=== PATIENT | female | born 1960 | race Two or more races ===

== ENCOUNTER 2023-12-03 13:13 | Observation (INO) | payer MEDICAID, SELFPAY ==
[2023-12-03] VITALS (46 sets, daily range): BP systolic 131–161; BP diastolic 68–97; PULSE 90–114; RESP 2–36; TEMP 36.8–37.8; O2SAT 88–99
--- NOTE | 2023-12-03 13:15 | DI.RAD_ITS ---
Exam(s) XR PORTABLE CHEST AP EXAM: XR PORTABLE CHEST AP CLINICAL HISTORY: SOB TECHNIQUE: 2D digital imaging was performed of the chest. One image was obtained. An AP view was ob tained. COMPARISON: No exams were available for comparison FINDINGS: MEDIASTINUM: Normal. HEART: Normal. PULMONARY VASCULATURE: Normal. LUNGS: No focal consolidating infiltrates are seen. PLEURAL SPACE: No pleural effusion or pneumothorax. BONE:Within normal limits for the patient's age. OTHER FINDINGS:There is elevation of the left hemidiaphragm. IMPRESSION: No acute pulmonary findings. DATA REPOSITORY: RADIATION DOSE DELIVERED:
--- NOTE | 2023-12-03 13:15 | RT.EKG_ITS ---
APPROVED REPORT Exam: Resting ECG Reason for Exam: sob Patient Location: E HR:98 bpm ECG Measurements Heart Rate 98 AXIS ME 188 P 50 QRSd 90 QRS 32 QT 354 T 53 QTc 451 Conclusion Sinus rhythm. normal axis
[2023-12-03] MEDS: methylPREDNISolone SUCC 125 MG VIAL IVP (13:34)
[2023-12-03 13:38] LABS: BE (Venous) 7 mmol/L (-2-3); HCO3 (Venous) 32 mmol/L (23-28); O2 Sat (Venous) 77 %; TCO2 (Venous) 30 mmol/L (24-29); pCO2 (Venous) 55 mmHg (41-51); pH (Venous) 7.38 (7.31-7.41); pO2 (Venous) 42 mmHg
[2023-12-03 13:53] LABS: PTT Activated 25.6 sec (23.6-32.8); Prothrombin Time 10.3 sec (9.1-11.1)
[2023-12-03 13:59] LABS: ALT 23 U/L (14-59); AST 11 U/L (15-37); Albumin 3.4 g/dL (3.4-5.0); Alkaline Phosphatase 96 U/L (46-116); Anion Gap 6.2 mmol/L (3-11); BUN 15 mg/dL (7-18); Bilirubin, Total 0.3 mg/dL (0.2-1.0); CO2 31.8 mmol/L (21.0-32.0); Calcium 9.7 mg/dL (8.5-10.1); Chloride 103 mmol/L (98-107); Glucose 116 mg/dL (74-106); Potassium 3.9 mmol/L (3.5-5.1); Sodium 141 mmol/L (136-145); Total Protein 7.6 g/dL (6.4-8.2)
[2023-12-03 14:05] LABS: Abs Immature Grans 0.09 10^3/uL (0.0-0.06); Absolute Basophil Count 0.07 10^3/uL (0.0-0.2); Absolute Lymphocyte Count 1.81 10^3/uL (1.2-3.4); Absolute Monocyte Count 0.98 10^3/uL (0.1-0.8); Basophils % 0.6; Eosinophils % 4.2; HCT 44.3 % (36.0-46.0); Immature Grans % 0.8; Lymphocytes % 15.2; MCH 24.1 pg (27.0-33.0); MCHC 29.3 % (32.0-36.0); MCV 82 fL (80-95); MPV 8.9 fL (8.0-11.0); Monocytes % 8.2; Platelet Count 326 10^3/uL (130-400); RDW 18.4 % (11.7-14.6); RDW-SD 54.1 fL; WBC 11.94 10^3/uL (4.4-10.8)
[2023-12-03 14:08] LABS: NT-proBNP 57 pg/mL (<300); Troponin I < 50 ng/L (< or =60)
[2023-12-03 14:10] LABS: Absolute Neutrophil Count 8.48 10^3/uL (1.2-6.7)
[2023-12-03] MEDS: Omnipaque 350 MG/ML 100 ML BTL IJ (14:44)
[2023-12-03] MEDS: Normal Saline - Diluent 50 ML VIAL IJ (14:45)
--- NOTE | 2023-12-03 15:00 | DI.CT_ITS ---
Exam(s) CT CHEST PE CTA EXAM: CT CHEST PE CTA CLINICAL HISTORY: SOB. TECHNIQUE: Imaging Protocol: Axial CT angiography was performed with multi-slice acquisition and mu lti-planar and/or 3D reconstructions. CONTRAST MATERIAL: Intravenous: Omnipaque 350 contrast volume:100 mL COMPARISON: CR XR PORTABLE CHEST AP from 12/03/2023 FINDINGS: There is poor inspiration and patient motion artifact. Tracheobronchial tree: Patent where visualized. Pulmonary parenchyma: There is atelectasis seen in the lung bases. No focal consolidating infiltrate s are seen. There is atelectasis or scarring in the right upper lobe. There is a 6 mm nodule in the right middle lobe. No architectural distortion. Pulmonary Arteries: No evidence of filling defect to suggest pulmonary emboli. Mediastinum and [place]: No dominant adenopathy or fluid collection. The esophagus is unremarkable. Visualized thyroid gland: There is a 7 mm hypodense nodule in the right lobe of the thyroid gland. N o follow-up is recommended. Pleura: No effusion or pneumothorax. Heart: The heart is not dilated. Coronary artery calcification and/or stents are present. No pericar dial effusion. Aorta: Thoracic aorta non-dilated. No evidence of dissection. Atherosclerosis is present. Upper abdomen: Unremarkable. Soft tissues: Unremarkable. Bones: Within normal limits for the patient's age. IMPRESSION: 1. No evidence of pulmonary embolism, thoracic aortic dissection or aneurysm. 2. 6 mm nodule in the right middle lobe. Follow-up CT scan of the chest in 12 months is recommended for low risk patients. For high risk patients (history of smoking or other risk factors), follow-up examination in 6-12 months and again in 18-24 months is recommended. (Gallito et al, 2017). Unexpected findings RADIATION DOSE DELIVERED: 456.94mGy.cm Total DLP DATA REPOSITORY: All CT scans at this facility are submitted to the National Radiology Data Registry (NRDR) Dose Index Registry (DIR) with the [employer] (A[employer]). RADIATION OPTIMIZATION: All CT scans at this facility use at least one of these dose optimization te chniques: automated exposure control; mA and/or kV adjustment per patient size (includes targeted exa ms where dose is matched to clinical indication); or iterative reconstruction.
--- NOTE | 2023-12-03 15:24 | ED.GENADUL_ITS ---
HPI General Stated Complaint: SOB EMETERIO: 2 Date/Time Provider Initiated Documentation: 12/03/23 13:24. Limitations to Documentation: physical limitation. Information obtained by: patient. HPI Narrative: 63-year-old female past medical history of DVT, hypertension presents for evaluation cough and shortness of breath. Patient reports that she has been having worsening symptoms over the last 2 weeks. She does smoke daily as well as vapes. She was seen by the urgent care and referred to the emergency department for further evaluation due to hypoxia. Patient reports that she is on Xarelto for blood clot. She reports cough, progressively worsening shortness of breath. Cough is productive of mucus. No fever. Has used an albuterol inhaler in the past, but states that it just does not work for her Related Data Home Medications Medication Instructions Recorded Confirmed amlodipine 5 mg tablet 5 mg PO DAILY 12/03/23 12/03/23 atorvastatin 40 mg tablet 40 mg PO DAILY 12/03/23 12/03/23 bupropion HCl 100 mg tablet,12 hr 100 mg PO DAILY 12/03/23 12/03/23 sustained-release (Wellbutrin SR) cholecalciferol (vitamin D3) 125 5,000 unit PO DAILY 12/03/23 12/03/23 mcg (5,000 unit) tablet (Vitamin D3) ferrous sulfate 325 mg (65 mg 324 mg PO DAILY 12/03/23 12/03/23 iron) tablet (Feosol) hydroxyzine HCl 50 mg tablet 50 mg PO BID 12/03/23 12/03/23 multivitamin (Daily Multi-Vitamin 1 tab PO DAILY 12/03/23 12/03/23 tablet) omeprazole 40 mg capsule,delayed 40 mg PO DAILY 12/03/23 12/03/23 release rivaroxaban 20 mg tablet (Xarelto) 20 mg PO DAILY 12/03/23 12/03/23 sertraline 50 mg tablet 50 mg PO DAILY 12/03/23 12/03/23 Allergies Allergy/AdvReac Type Severity Reaction Status Date / Time diclofenac [From Voltaren] Allergy Mild Skin Rash Verified 12/03/23 13:46 PFS All Active Problems (Updated 12/03/23 @ 16:10 by Jass Gibbs MD) COPD exacerbation (Acute) Continuous tobacco abuse (Acute) Shortness of breath (Acute) Hypoxia (Acute) Social History Smoking/Tobacco Use Status: Current every day Tobacco Type: cigarettes and e- cigarettes Smoking risk assessment performed?: Yes Alcohol Intake: former Drug use: Rarely Substance use type: marijuana Housing: apartment Do you feel safe at home: Yes Do you feel safe in your relationship?: Yes Exam Narrative Exam Narrative: Review of Systems: All systems reviewed & are unremarkable except as noted in HPI and below Well-developed, acute distress NACT PERRL, normal conjunctiva Tachycardic Diminished breath sounds bilaterally, hypoxia at 88% Nondistended abdomen Extremities w/o deformity, no cyanosis, no edema No lower extremity swelling or tenderness No rashes or lesions. no focal neurologic deficits Appropriate mood and affect Course Vital Signs Vital signs: Vital Signs Temperature 36.8 C 12/03/23 13:16 Pulse 101 H 12/03/23 13:16 Respiratory Rate 20 12/03/23 13:16 Blood Pressure 160/82 H 12/03/23 13:16 Pulse Oximetry 93 12/03/23 13:16 Temperature 36.8 C 12/03/23 13:39 Temperature Source Oral 12/03/23 13:39 Pulse 94 H 12/03/23 14:30 Pulse 93 H 12/03/23 14:31 Respiratory Rate 18 12/03/23 14:31 Respiratory Effort Short of Breath 12/03/23 13:39 Respiratory Depth Normal 12/03/23 13:39 Respiratory Pattern Normal 12/03/23 13:39 Blood Pressure 161/95 H 12/03/23 14:30 Blood Pressure Mean 117 12/03/23 14:30 Blood Pressure Position Sitting 12/03/23 13:39 Pulse Oximetry 94 12/03/23 14:31 Oxygen Delivery Method Nasal Cannula 12/03/23 13:39 Oxygen Flow Rate 2 12/03/23 13:39 Pain Level 2 12/03/23 13:39 Lab/Test Results Lab/Test Results: Laboratory Tests Range/Units 12/03/23 13:27 WBC (4.4-10.8) 10^3/uL 11.94 H RBC (3.93-5.22) 10^6/uL 5.40 H Hgb (11.2-15.7) g/dL 13.0 Hct (36.0-46.0) % 44.3 MCV (80-95) fL 82 MCH (27.0-33.0) pg 24.1 L MCHC (32.0-36.0) % 29.3 L RDW (11.7-14.6) % 18.4 H Plt Count (130-400) 10^3/uL 326 MPV (8.0-11.0) fL 8.9 Immature Gran % 0.8 Neutrophils % 71.0 Lymphocytes % 15.2 Monocytes % 8.2 Eosinophils % 4.2 Basophils % 0.6 Nucleated RBC % (0.0-0.3) % 0.0 Absolute Neutrophils (1.2-6.7) 10^3/uL 8.48 H Absolute Lymphocytes (1.2-3.4) 10^3/uL 1.81 Absolute Monocytes (0.1-0.8) 10^3/uL 0.98 H Absolute Eosinophils (0.0-0.7) 10^3/uL 0.50 Absolute Basophils (0.0-0.2) 10^3/uL 0.07 PT (9.1-11.1) sec 10.3 INR (0.9-1.1) 1.0 APTT (23.6-32.8) sec 25.6 VBG pH (7.31-7.41) 7.38 VBG pCO2 (41-51) mmHg 55 H VBG pO2 mmHg 42 VBG HCO3 (23-28) mmol/L 32 H VBG Total CO2 (24-29) mmol/L 30 H VBG O2 Saturation % 77 VBG Base Excess (-2-3) mmol/L 7 H Sodium (136-145) mmol/L 141 Potassium (3.5-5.1) mmol/L 3.9 Chloride (98-107) mmol/L 103 Carbon Dioxide (21.0-32.0) mmol/L 31.8 Anion Gap (3-11) mmol/L 6.2 BUN (7-18) mg/dL 15 Creatinine (0.55-1.02) mg/dL 1.0 Est GFR (CKD-EPI 2020) (mL/min/1.73m2) 63.70 Glucose (74-106) mg/dL 116 H Calcium (8.5-10.1) mg/dL 9.7 Magnesium (1.8-2.4) mg/dL 2.0 Total Bilirubin (0.2-1.0) mg/dL 0.3 AST (15-37) U/L 11 L ALT (14-59) U/L 23 Alkaline Phosphatase (46-116) U/L 96 Troponin I (< or =60) ng/L < 50 NT-Pro-B Natriuret Pep (<300) pg/mL 57 Total Protein (6.4-8.2) g/dL 7.6 Albumin (3.4-5.0) g/dL 3.4 Medical Decision Making Emergent evaluation of shortness of breath and hypoxia. Initial differential includes COPD exacerbation, pneumonia, vaping associated lung injury, viral illness. Patient is noted to be tachycardic and hypoxic. She is requiring supplemental oxygen to maintain her sats. She states that she is not completely compliant with her Xarelto. She cannot give additional details regarding her DVT, will evaluate her for a PE as well. Will give steroids and additional bronchodilators. 1525: removed nasal canula, sats around 88%. will give another neb. CTA pending. 1610: CTA does not demonstrate a pulmonary embolism. There is a pulmonary nodu le that will require follow-up. Given the fact that she is oxygen dependent at this time, patient will require hospitalization. Medical Records Medical records reviewed: Yes I reviewed the patient's medical records. Lab Data Lab results reviewed: Yes I reviewed the patient's lab results. Quality:[facility] Health Related Social Needs: No Data to Display Discharge Plan Disposition Patient Disposition: Admit to [facility] Discharge Details Clinical Impression: Hypoxia, Shortness of breath, Continuous tobacco abuse, COPD exacerbation Primary Care Provider: Unknown,Unknown ED Provider: Jass Gibbs Home Meds and New Rx's Prescriptions: No Action Xarelto 20 mg tablet 20 mg PO DAILY Rx Instructions: must administer with evening meal amlodipine 5 mg tablet 5 mg PO DAILY sertraline 50 mg tablet 50 mg PO DAILY atorvastatin 40 mg tablet 40 mg PO DAILY hydroxyzine HCl 50 mg tablet 50 mg PO BID omeprazole 40 mg capsule,delayed release(DR/EC) 40 mg PO DAILY ferrous sulfate [Feosol] 325 mg (65 mg iron) tablet 324 mg PO DAILY bupropion HCl [Wellbutrin SR] 100 mg tablet sustained-release 12 hr 100 mg PO DAILY cholecalciferol (vitamin D3) [Vitamin D3] 125 mcg (5,000 unit) tablet 5,000 unit PO DAILY multivitamin [Daily Multi-Vitamin] Tablet 1 tab PO DAILY
[2023-12-03] MEDS: Albuterol/Ipratropium 3 ML UPD VIAL UPD ×2 (15:30→19:59)
--- NOTE | 2023-12-03 16:29 | HPE_ITS ---
Date of service: 12/03/23 Time of Service: 16:30 Assessment and Plan Assessment and plan (1) Acute hypoxic respiratory failure: Status: Acute Assessment and plan: Will refer to observation on the medical surgical unit suspected COPD exacerbation (no formal diagnosis). Wean oxygen as able Daily prednisone burst Scheduled updrafts with albuterol as needed Smoking cessation discussed with nicotine replacement while hospitalized Pulmonary toileting with incentive spirometer and Acapella Outpatient pulmonary function testing/pulmonary consult Chest CT with no findings of pulmonary embolism infiltrate or other etiology for her acute hypoxia. Will add procalcitonin and if elevated consider adding antibiotic (2) COPD exacerbation: Status: Suspected Assessment and plan: See above (3) LISA (obstructive sleep apnea): Status: Chronic Assessment and plan: has not tolerated her cpap previously so does not use. (4) Continuous tobacco abuse: Status: Acute Assessment and plan: Smoking cessation discussed Nicotine replacement while hospitalized (5) History of DVT (deep vein thrombosis): Status: Acute Assessment and plan: Fully anticoagulated on Xarelto, will continue (6) Hypertension: Status: Chronic Assessment and plan: Blood pressure is controlled continue amlodipine (7) Dyslipidemia: Status: Acute Assessment and plan: Continue atorvastatin (8) Discharge planning issues: Status: Acute Assessment and plan: Anticipated discharge to home with no services once medically stable and weaned off oxygen discussed with DR Robles History of Present Illness History of Present Illness Chief Complaint: shortness of breath Narrative: This is a 63-year-old female past medical history of DVT, hypertension presents for evaluation cough and shortness of breath. Patient reports that she has been having worsening symptoms over the last 2 weeks. She does smoke daily as well as vapes. She was seen by the urgent care and referred to the emergency department for further evaluation due to hypoxia. Patient reports that she is on Xarelto for blood clot. She reports cough, progressively worsening shortness of breath. Cough is productive of mucus. No fever. Has used an albuterol inhaler in the past, but states that it just does not work for her. Review of Systems All systems reviewed & are unremarkable except as noted in HPI and below PFSH All Active Problems (Updated 12/03/23 @ 17:56 by Dinorah Tan NP) LISA (obstructive sleep apnea) (Chronic) Discharge planning issues (Acute) Dyslipidemia (Acute) Hypertension (Chronic) History of DVT (deep vein thrombosis) (Acute) Acute hypoxic respiratory failure (Acute) Continuous tobacco abuse (Acute) Shortness of breath (Acute) Hypoxia (Acute) Social History Smoking/Tobacco Use Status: Current every day Tobacco Type: cigarettes and e- cigarettes Smoking risk assessment performed?: Yes Alcohol Intake: former Drug use: Rarely Substance use type: marijuana Housing: apartment Do you feel safe at home: Yes Do you feel safe in your relationship?: Yes Meds Allergies and Home Medications Allergies Allergy/AdvReac Type Severity Reaction Status Date / Time diclofenac [From Voltaren] Allergy Mild Skin Rash Verified 12/03/23 13:46 Home Medications Medication Instructions Recorded Confirmed Type amlodipine 5 mg tablet 5 mg PO DAILY 12/03/23 12/03/23 History atorvastatin 40 mg tablet 40 mg PO DAILY 12/03/23 12/03/23 History bupropion HCl 100 mg tablet,12 hr 100 mg PO DAILY 12/03/23 12/03/23 History sustained-release (Wellbutrin SR) cholecalciferol (vitamin D3) 125 5,000 unit PO DAILY 12/03/23 12/03/23 History mcg (5,000 unit) tablet (Vitamin D3) ferrous sulfate 325 mg (65 mg 324 mg PO DAILY 12/03/23 12/03/23 History iron) tablet (Feosol) hydroxyzine HCl 50 mg tablet 50 mg PO BID 12/03/23 12/03/23 History multivitamin (Daily Multi-Vitamin 1 tab PO DAILY 12/03/23 12/03/23 History tablet) omeprazole 40 mg capsule,delayed 40 mg PO DAILY 12/03/23 12/03/23 History release rivaroxaban 20 mg tablet (Xarelto) 20 mg PO DAILY 12/03/23 12/03/23 History sertraline 50 mg tablet 50 mg PO DAILY 12/03/23 12/03/23 History Exam Const General: no acute distress and ill appearing Nutritional Appearance: overweight Orientation: alert, awake and oriented x3 HENMT Head: normal to inspection, normocephalic and atraumatic Face and sinus: normal facial exam Mouth: oral mucosae normal Resp Effort & Inspection: able to speak in complete sentences, no audible wheezes, cough and no respiratory distress Auscultation: diminished lung sounds, no rales, no rhonchi and wheezes expiratory wheezes Cardio Rate: tachycardic GI Inspection: normal to inspection Skin General skin exam: no rashes or lesions noted Extrem General: normal to inspection and full ROM Results Labs 12/03/23 13:27 12/03/23 13:27 Labs: Laboratory Results - last 24 hr 12/03/23 13:27 WBC 11.94 H RBC 5.40 H Hgb 13.0 Hct 44.3 MCV 82 MCH 24.1 L MCHC 29.3 L RDW 18.4 H Plt Count 326 MPV 8.9 Immature Gran % 0.8 Neutrophils % 71.0 Lymphocytes % 15.2 Monocytes % 8.2 Eosinophils % 4.2 Basophils % 0.6 Nucleated RBC % 0.0 Absolute Neutrophils 8.48 H Absolute Lymphocytes 1.81 Absolute Monocytes 0.98 H Absolute Eosinophils 0.50 Absolute Basophils 0.07 PT 10.3 INR 1.0 APTT 25.6 VBG pH 7.38 VBG pCO2 55 H VBG pO2 42 VBG HCO3 32 H VBG Total CO2 30 H VBG O2 Saturation 77 VBG Base Excess 7 H Sodium 141 Potassium 3.9 Chloride 103 Carbon Dioxide 31.8 Anion Gap 6.2 BUN 15 Creatinine 1.0 Est GFR (CKD-EPI 2020) 63.70 Glucose 116 H Calcium 9.7 Magnesium 2.0 Total Bilirubin 0.3 AST 11 L ALT 23 Alkaline Phosphatase 96 Troponin I < 50 NT-Pro-B Natriuret Pep 57 Total Protein 7.6 Albumin 3.4 Last Vital Signs Temp 36.8 C 12/03/23 13:39 Pulse 96 H 12/03/23 16:01 Resp 21 12/03/23 16:10 BP 161/84 H 12/03/23 16:01 Pulse Ox 92 12/03/23 16:10 Time Spent Time spent with Patient: 55-74 minutes Time was spent: preparing to see the patient(eg.review tests), obtaining and/or reviewing separately otained hiistory, ordering medications,tests, procedures, indepentently interpreting results and counseling the patient
[2023-12-03] MEDS: Nicotine 4 MG GUM CH (17:26)
[2023-12-03 17:36] LABS: Lab Add On Test DONE
[2023-12-03 18:12] LABS: Procalcitonin < 0.1 ng/mL
[2023-12-03] MEDS: Nicotine 21 MG/24 HR PATCH TD (19:52)
[2023-12-03] MEDS: Normal Saline 1,000 ML 1000 ML IV (19:53)
[2023-12-03] MEDS: hydrOXYzine HCL 50 MG TAB PO (20:14)
--- NOTE | 2023-12-03 20:22 | RESPIRATORY ---
RT seen pt. for LISA diagnosis. Pt. advised RT that she does not use any HU CPAP for her LISA. Also, states had one and stopped using it 3 years ago due to discomfort.
[2023-12-03] MEDS: Melatonin 3 MG TAB PO (21:32)
[2023-12-03] MEDS: Acetaminophen 325 MG TAB 650 MG PO (21:32)
[2023-12-04] VITALS (10 sets, daily range): BP systolic 135–150; BP diastolic 79–87; PULSE 78–104; RESP 3–20; TEMP 36.7–37.4; O2SAT 91–97
[2023-12-04] MEDS: Albuterol/Ipratropium 3 ML UPD VIAL UPD ×4 (08:35→19:53)
[2023-12-04] MEDS: Rivaroxaban 10 MG TABLET 20 MG PO (08:50)
[2023-12-04] MEDS: amLODIPine 5 MG TAB PO (08:50)
[2023-12-04] MEDS: predniSONE 20 MG TAB 40 MG PO (08:50)
[2023-12-04] MEDS: Omeprazole 20 MG CAPCR 40 MG PO (08:50)
[2023-12-04] MEDS: Ferrous Sulfate 325 MG TAB 324 MG PO (08:50)
[2023-12-04] MEDS: Sertraline 50 MG TAB PO (08:50)
[2023-12-04] MEDS: Atorvastatin 40 MG TAB PO (08:50)
[2023-12-04] MEDS: buPROPion-CR 100 MG TABCR PO (08:50)
[2023-12-04] MEDS: Multivitamin TAB 1 TAB PO (08:50)
[2023-12-04] MEDS: hydrOXYzine HCL 50 MG TAB PO ×2 (08:50→19:53)
[2023-12-04] MEDS: Cholecalciferol (Vitamin D3) 1,000 UNIT TAB 5000 UNITS PO (08:50)
[2023-12-04] MEDS: Nicotine 4 MG GUM CH ×2 (09:00→12:54)
--- NOTE | 2023-12-04 09:48 | PDOC.CMIN ---
Date of service: 12/04/23 Time of Service: 09:48 Care Management Initial Assmt Initial Assessment REASON FOR HOSPITALIZATION:: Acute respiratory failure, COPD exacerbation PREVIOUS FUNCTIONAL STATUS/SOCIAL/FAMILY SUPPORTS:: Resides in [facility], . Sister Almita listed as primary support. CURRENT FUNCTIONAL STATUS:: Sera remains on M/S in observation status, anticipate no new services upon discharge at this time, continuing to follow. ADVANCE DIRECTIVES:: None on file. Has patient been provided with info about the portal/API?: Yes Did the patient sign up for the portal?: No CODE STATUS:: Full Code INSURANCE COVERAGE / FINANCIAL ISSUES:: Medicaid PRIMARY CARE PHYSICIAN:: Unknown; tele doc (Ann) follow up to be offered. POTENTIAL DISCHARGE NEEDS:: Smoking cessation referral offered. PATIENT/FAMILY EDUCATION NEEDS:: Review discharge instructions, discuss Ask Me Three'> ANTICIPATED BARRIERS TO DISCHARGE:: None identified. TRANSPORTATION:: Via private vehicle with friend, or via RCT. PLAN:: Sera will return home when ready per MD, she will be offered resources for PCP (Ann) and smoking cessation. No additional services anticipated at this time. CM continues to follow. PFSH All Active Problems (Updated 12/04/23 @ 15:09 by Tabitha Thompson APRN) Creatinine elevation (Acute) LISA (obstructive sleep apnea) (Chronic) Discharge planning issues (Acute) Dyslipidemia (Acute) Hypertension (Chronic) History of DVT (deep vein thrombosis) (Acute) Acute hypoxic respiratory failure (Acute) Continuous tobacco abuse (Acute) Shortness of breath (Acute) Hypoxia (Acute) Social History Smoking/Tobacco Use Status: Current every day Tobacco Type: cigarettes and e-cigarettes Smoking risk assessment performed?: Yes Alcohol Intake: former Drug use: Rarely Substance use type: marijuana Housing: apartment Do you feel safe at home: Yes Do you feel safe in your relationship?: Yes SDOH(Care Management) Screening Will the Patient Participate in the Screening?: Yes Do you worry about having a steady place to live?: no In the past 12 months, have you had to go without electric, gas, oil or water in your home?: no Have you or anyone in your house had to go without enough food to eat?: no Has lack of transportation kept you from medical appointments or from doing things needed for daily living?: yes Has anyone in your support network made you feel unsafe for any reason?: no Social Determinants of Health Comments(SDOH Details): transportation for appointments Health Related Social Needs Health related social needs: transportation insecurity(Z59.82)
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
[2023-12-04 11:05] LABS: Abs Immature Grans 0.12 10^3/uL (0.0-0.06); Absolute Basophil Count 0.04 10^3/uL (0.0-0.2); Absolute Lymphocyte Count 0.94 10^3/uL (1.2-3.4); Basophils % 0.2; HCT 39.3 % (36.0-46.0); HGB 11.6 g/dL (11.2-15.7); Immature Grans % 0.6; Lymphocytes % 5.1; MCH 24.3 pg (27.0-33.0); MCHC 29.5 % (32.0-36.0); MCV 82 fL (80-95); Monocytes % 4.6; Neutrophils % 89.5; Platelet Count 312 10^3/uL (130-400); RBC 4.78 10^6/uL (3.93-5.22); RDW 18.4 % (11.7-14.6); RDW-SD 54.9 fL
[2023-12-04 11:06] LABS: Absolute Monocyte Count 0.85 10^3/uL (0.1-0.8); Absolute Neutrophil Count 16.56 10^3/uL (1.2-6.7)
[2023-12-04 11:21] LABS: Anion Gap 6.4 mmol/L (3-11); BUN 23 mg/dL (7-18); CO2 28.6 mmol/L (21.0-32.0); CREATININE 1.1 mg/dL (0.55-1.02); Calcium 9.4 mg/dL (8.5-10.1); Chloride 104 mmol/L (98-107); Estimated GFR 56.81 (mL/min/1.73m2); Glucose 234 mg/dL (74-106); Potassium 4.5 mmol/L (3.5-5.1); Sodium 139 mmol/L (136-145)
--- NOTE | 2023-12-04 14:51 | PHA.REVIEW2 ---
Pharmacy Admission Review Admission Clinical Review Admission Pharmacy Review: (Updated 12/03/23 @ 17:56 by Dinorah Tan NP) Discharge planning issues (Acute) Dyslipidemia (Acute) History of DVT (deep vein thrombosis) (Acute) Acute hypoxic respiratory failure (Acute) Continuous tobacco abuse (Acute) Shortness of breath (Acute) Hypoxia (Acute) diclofenac [From Voltaren] Allergy (Mild, Verified 12/03/23 13:46) Skin Rash Resuscitation Status Full Code Height 5 ft 4 in Weight 104.326 kg Pharmacy Admission Review Renal Dosing Renal Dosing: BUN 23 mg/dL (7-18) H 12/04/23 10:55 Creatinine 1.1 mg/dL (0.55-1.02) H 12/04/23 10:55 Medications needing adjustments: Reviewed (CrCl 62.41 mL/min) Anticoagulation Anticoagulation: Hgb 11.6 g/dL (11.2-15.7) 12/04/23 10:55 Hct 39.3 % (36.0-46.0) 12/04/23 10:55 Plt Count 312 10^3/uL (130-400) 12/04/23 10:55 INR 1.0 (0.9-1.1) 12/03/23 13:27 Creatinine 1.1 mg/dL (0.55-1.02) H 12/04/23 10:55 DVT Prophylaxis: Reviewed Medications: Rivaroxaban (20mg daily) Relevant Labs Relevant Labs: Sodium 139 mmol/L (136-145) 12/04/23 10:55 Potassium 4.5 mmol/L (3.5-5.1) 12/04/23 10:55 Chloride 104 mmol/L (98-107) 12/04/23 10:55 Magnesium 2.0 mg/dL (1.8-2.4) 12/03/23 13:27 Electrolytes, C-Reactive P, ESR: Reviewed Cardiac Review Cardiac Review: Troponin I < 50 ng/L (< or =60) 12/03/23 13:27 NT-Pro-B Natriuret Pep 57 pg/mL (<300) 12/03/23 13:27 BP, HR, EF%: Reviewed (BP WNL, HR 100, Nasal Cannula 2+) QTc Review QTc: Reviewed (451 12/03/23) IV to PO Switch IV Medications: Reviewed Home Meds Home Med List reviewed: Reviewed Current Meds Current Medication Order Review: Reviewed Pharmacy Antibiotic Review Relevant Labs: Relevant Labs 12/03/23 13:27 Procalcitonin < 0.1
[2023-12-04] MEDS: Nicotine 21 MG/24 HR PATCH TD (15:28)
[2023-12-04] MEDS: Acetaminophen 325 MG TAB 650 MG PO (15:33)
--- NOTE | 2023-12-04 15:47 | CHAPLAIN ---
Sera was sitting up in bed when I visited. Her sister Almita was with her and another person. Sera said she moved to [facility] from [place], [place], within the past year to live with her sister. She asked me to pray for her and also asked for chapstick and lotion which I got for her. I will continue to visit.
[2023-12-04] MEDS: Methocarbamol 750 MG TAB PO (19:52)
[2023-12-04] MEDS: Melatonin 3 MG TAB PO (21:39)
[2023-12-05 07:22] LABS: Abs Immature Grans 0.09 10^3/uL (0.0-0.06); Absolute Lymphocyte Count 2.62 10^3/uL (1.2-3.4); Absolute Monocyte Count 1.41 10^3/uL (0.1-0.8); Basophils % 0.4; Eosinophils % 0.6; HCT 40.1 % (36.0-46.0); HGB 12.1 g/dL (11.2-15.7); Immature Grans % 0.5; Lymphocytes % 13.9; MCH 24.9 pg (27.0-33.0); MCHC 30.2 % (32.0-36.0); MCV 83 fL (80-95); MPV 9.3 fL (8.0-11.0); Monocytes % 7.5; Neutrophils % 77.1; Platelet Count 335 10^3/uL (130-400); RBC 4.85 10^6/uL (3.93-5.22); RDW 18.4 % (11.7-14.6); RDW-SD 55.5 fL; WBC 18.85 10^3/uL (4.4-10.8)
[2023-12-05 07:24] LABS: Absolute Basophil Count 0.08 10^3/uL (0.0-0.2); Absolute Eosinophil Count 0.11 10^3/uL (0.0-0.7); Absolute Neutrophil Count 14.53 10^3/uL (1.2-6.7)
[2023-12-05 07:41] LABS: Anion Gap 6.8 mmol/L (3-11); BUN 27 mg/dL (7-18); CO2 32.2 mmol/L (21.0-32.0); CREATININE 1.1 mg/dL (0.55-1.02); Chloride 104 mmol/L (98-107); Estimated GFR 56.81 (mL/min/1.73m2); Glucose 130 mg/dL (74-106); Sodium 143 mmol/L (136-145)
[2023-12-05 08:39] VITALS: O2SAT 95
[2023-12-05 08:41] VITALS: PULSE 91; RESP 18; RESP 9; O2SAT 89
[2023-12-05] MEDS: Albuterol/Ipratropium 3 ML UPD VIAL UPD ×2 (08:41→12:15)
[2023-12-05 08:46] VITALS: PULSE 93
--- NOTE | 2023-12-05 09:27 | W.PM.DS.N ---
Date of service: 12/05/23 Time of Service: 09:27 DS: Diagnosis Discharge Diagnosis (1) Acute hypoxic respiratory failure: Status: Acute (2) COPD exacerbation: Status: Suspected (3) LISA (obstructive sleep apnea): Status: Chronic (4) Creatinine elevation: Status: Acute (5) Continuous tobacco abuse: Status: Acute (6) History of DVT (deep vein thrombosis): Status: Acute (7) Hypertension: Status: Chronic (8) Dyslipidemia: Status: Acute (9) Discharge planning issues: Status: Acute Discharge Plan Disposition Patient Disposition: Home Condition: Improving Discharge Details Reason For Visit: Acute respiratory failure, copd exacerbation Admit Date/Time: 12/03/23 16:24 Admit Provider: Aries Robles Attending Provider: Aries Robles Primary Care Provider: Unknown,Unknown Hospital Course Hospital Course: This 63-year-old female past medical history of over 50 pack year of daily tobacco abuse, vaping, deep vein thrombosis on xeralto, hypertension on amlodipine presented to the ED at [facility] on 12/03/23 for evaluation cough, shortness of breath and hypoxia after urgent care visit. Patient reports that she has been having worsening symptoms over the last 2 weeks. She reported cough, progressively worsening shortness of breath. Cough was productive of mucus without fever or chills at the time .The patient reported using an albuterol inhaler in the past, but stated that it just did not work for her. In the ED , the patient was hypoxic on arrival, required oxygen supplementation, had a nebulizer treatment with bronchodilators, remained hypoxic at 88% on RA at rest. The patient received steroids and additional bronchodilators via nebulizer.CTA was negative for PE, remarkable labs showed leukocytosis at 11.8, PCO2 on VBG was 55.The hospitalist admintted the patient on the medical surgical floor for evaluation and management of hypoxic respiratory failure with hypercapnia, and chronic obstructive pulmonary disease (COPD) exacerbation. During her stay, the patient continued to receive nebulizer treament, prednisone and was wean off oxygen. Pulmonary consult with recommendations obtained and f/u as an outpatient. to be arrange by pulmonary medicine. The recommendations issued by Dr. Marx upon discharge are for oral azthromycin 250mg for 5 day s, prednisone taper, Stiolto which was started here, and PRN albuterol. The patient will have as needed nebulizer of albuterol at home, and use the the portable albuterol inhaler if needed when outside of her home setting. The patient is discharged home today and has no additional oxygen requirement. The patient complained of ear pain due to her causing an abrasion with her nail, increased pain to palpation, no redness, drainage or swelling, but no observable lesion seen, a referral to Dr. Johns was completed. The patient will also need a follow up with her primary care provider. Discussed with Dr. Robles Home Meds and New Rx's Prescriptions: New albuterol sulfate 2.5 mg /3 mL (0.083 %) Solution For Nebulization 2.5 mg UPD Q4H PRN PRNQty: 75 0RF Stiolto Respimat 2.5-2.5 mcg/actuation Mist 2 puff inhalation DAILY Qty: 4 0RF azithromycin 250 mg Tablet 250 mg PO DAILY Qty: 5 0RF prednisone 20 mg Tablet See Taper PO DAILY Qty: 29 0RF Taper: Prednisone 20mg taper 40 mg Daily for 7 Days and 0 Hour 30 mg Daily for 3 Days and 0 Hour 20 mg Daily for 3 Days and 0 Hour 10 mg Daily for 3 Days and 0 Hour 5 mg Daily for 5 Days and 0 Hour Rx Instructions: prednisone 40mg daily for 7 days, 30mg for 3 days, 20mg for 3 days, 10mg for 3 days, 5mg for 3 days albuterol sulfate 90 mcg/actuation HFA aerosol inhaler 2 puff inhalation Q12H PRN PRNQty: 6.7 0RF Rx Instructions: While outside of home setting Continued Xarelto 20 mg tablet 20 mg PO DAILY Rx Instructions: must administer with evening meal amlodipine 5 mg tablet 5 mg PO DAILY sertraline 50 mg tablet 50 mg PO DAILY atorvastatin 40 mg tablet 40 mg PO DAILY hydroxyzine HCl 50 mg tablet 50 mg PO BID omeprazole 40 mg capsule,delayed release(DR/EC) 40 mg PO DAILY ferrous sulfate [Feosol] 325 mg (65 mg iron) tablet 324 mg PO DAILY bupropion HCl [Wellbutrin SR] 100 mg tablet sustained-release 12 hr 100 mg PO DAILY cholecalciferol (vitamin D3) [Vitamin D3] 125 mcg (5,000 unit) tablet 5,000 unit PO DAILY multivitamin [Daily Multi-Vitamin] Tablet 1 tab PO DAILY Discharge Instructions Stand Alone Forms: Nursing Discharge Form Referrals: [facility] [Provider Group] - 12/24/23 10:30 am (With Sherrell Grossman ) [facility] [Provider Group] - 12/11/23 8:00 am (For your ear pain ) Sally Marx MD [ [facility] STAFF PHYSICIAN] - 12/22/23 1:00 pm () Activity:: Activity as Tolerated Equipment/Supplies:: nebulizer Diet:: As Tolerated Discharge Orders Discharge Orders: Discharge Order (Routine); Ordered 12/05/23 Ordered By: Tabitha Thompson DS: Summary Time Spent with Patient providing and/or coordinating discharge services: Greater than 30 minutes Status at Discharge Functional status at discharge: independent ambulation Overall status at discharge: patient is progressing back to baseline Mental Status: mental status grossly normal Speech and Movement: speech and movement normal Mood: congruent mood Affect: normal affect Quality:SDOH Health Related Social Needs: Health related social needs transpo insecurity Exam Narrative Exam Narrative: Constitutional The patient is without acute distress HENMT: Head is atraumatic, normocephalic, facial structures and ears with normal appearance Neuro:alert and oriented to self, person, place, time and situation. No neurological focal deficit Chest:Chest is symmetrical and normal appearance Resp: Normal respiratory pattern, speaks in full sentences, unlabored breathing on RA, clear upper lungs bilaterally, diminished bases Cardio: regular rhythm, S1, S2, no murmur, capillary refill<3 sec., bilateral radial and dorsalis pedis pulses are positive GI: Abdomen is not distended, soft and non tender, bowel sounds are present Back/spine/Pelvis: No back tenderness, normal alignment Extremities: strength 5/5 to bilateral lower and upper extremities Psych: RASS 0, congruent mood and normal to anxious d/t discharge affect. Psych Mental Status: mental status grossly normal Speech and Movement: speech and movement normal Mood: congruent mood Affect: normal affect DS: Data Vitals/I&O Vitals and I&O: Vital Signs Temperature 37.2 C 12/04/23 23:28 Temperature Source Tympanic 12/04/23 23:28 Pulse 93 H 12/05/23 08:46 Pulse Rhythm Irregular 12/04/23 23:25 Pulse 108 H 12/03/23 17:40 Respiratory Rate 18 12/05/23 08:41 Respiratory Effort Normal, Non-Labored, Short of Breath 12/04/23 23:25 Respiratory Depth Shallow 12/04/23 23:25 Respiratory Pattern Irregular 12/04/23 23:25 Blood Pressure 141/79 H 12/04/23 23:28 Blood Pressure Mean 107 12/03/23 16:45 Blood Pressure Position Sitting 12/03/23 13:39 Pulse Oximetry 89 L 12/05/23 08:41 Oxygen Delivery Method Room Air 12/05/23 08:41 Oxygen Flow Rate 0 12/05/23 08:41 Pain Level 0 12/04/23 19:57 Intake & Output 12/04/23 12/04/23 12/05/23 11:59 23:59 11:59 Other: Urine Appearance Clear Clear Comment pT takes self to bathroom independently Data Completed and Pending Labs on day of discharge: Labs from last 24 hours 12/05/23 12/04/23 06:24 10:55 WBC 18.85 H 18.50 H RBC 4.85 4.78 Hgb 12.1 11.6 Hct 40.1 39.3 MCV 83 82 MCH 24.9 L 24.3 L MCHC 30.2 L 29.5 L RDW 18.4 H 18.4 H Plt Count 335 312 MPV 9.3 9.0 Immature Gran % 0.5 0.6 Neutrophils % 77.1 89.5 Lymphocytes % 13.9 5.1 Monocytes % 7.5 4.6 Eosinophils % 0.6 0.0 Basophils % 0.4 0.2 Nucleated RBC % 0.0 0.0 Absolute Neutrophils 14.53 H 16.56 H Absolute Lymphocytes 2.62 0.94 L Absolute Monocytes 1.41 H 0.85 H Absolute Eosinophils 0.11 0.00 Absolute Basophils 0.08 0.04 Sodium 143 139 Potassium 4.0 4.5 Chloride 104 104 Carbon Dioxide 32.2 H 28.6 Anion Gap 6.8 6.4 BUN 27 H 23 H Creatinine 1.1 H 1.1 H Est GFR (CKD-EPI 2020) 56.81 56.81 Glucose 130 H 234 H Calcium 9.0 9.4 PFSH All Active Problems (Updated 12/05/23 @ 13:04 by Sally Marx MD) Pulmonary nodule (Acute) Creatinine elevation (Acute) LISA (obstructive sleep apnea) (Chronic) Discharge planning issues (Acute) Dyslipidemia (Acute) Hypertension (Chronic) History of DVT (deep vein thrombosis) (Acute) Acute hypoxic respiratory failure (Acute) Continuous tobacco abuse (Acute) Shortness of breath (Acute) Hypoxia (Acute) Social History Smoking/Tobacco Use Status: Current every day Tobacco Type: cigarettes and e-cigarettes Smoking risk assessment performed?: Yes Alcohol Intake: former Drug use: Rarely Substance use type: marijuana Housing: apartment Do you feel safe at home: Yes Do you feel safe in your relationship?: Yes Time Spent with Patient Time Spent with Patient: >85 minutes Time was spent: preparing to see the patient(eg.review tests), ordering medications,tests, procedures, referring, communicating with other health neonatal intensive care nurse, indepentently interpreting results, counseling the patient and care coordination
[2023-12-05] MEDS: Atorvastatin 40 MG TAB PO (09:29)
[2023-12-05] MEDS: Rivaroxaban 10 MG TABLET 20 MG PO (09:29)
[2023-12-05] MEDS: hydrOXYzine HCL 50 MG TAB PO (09:30)
[2023-12-05] MEDS: Sertraline 50 MG TAB PO (09:30)
[2023-12-05] MEDS: buPROPion-CR 100 MG TABCR PO (09:30)
[2023-12-05] MEDS: Methocarbamol 750 MG TAB PO (09:30)
[2023-12-05] MEDS: Multivitamin TAB 1 TAB PO (09:31)
[2023-12-05] MEDS: Ferrous Sulfate 325 MG TAB 324 MG PO (09:31)
[2023-12-05] MEDS: Omeprazole 20 MG CAPCR 40 MG PO (09:31)
[2023-12-05] MEDS: predniSONE 20 MG TAB 40 MG PO (09:32)
[2023-12-05] MEDS: amLODIPine 5 MG TAB PO (09:33)
[2023-12-05] MEDS: Cholecalciferol (Vitamin D3) 1,000 UNIT TAB 5000 UNITS PO (09:33)
[2023-12-05 09:59] VITALS: BP 134/78; PULSE 87; RESP 18; TEMP 36.8; O2SAT 90
--- NOTE | 2023-12-05 10:38 | PUCON_ITS ---
General Date Of Service Date of service: 12/05/23 Time of Service: 07:50 Reason for Consult: Presumptive COPD Assessment and Plan Assessment and plan (1) COPD exacerbation: Status: Suspected (2) Pulmonary nodule: Status: Acute (3) Hypoxia: Status: Acute Assessment and plan: This is a 63 yo admitted for a COPD exacerbation. I do agree, there is a high pre test probability for COPD and her clinical exam does present consistent with COPD.. I recommend a prednisone taper (as outlined below) as well as azithromycin (should use macrolide if able in COPD exacerbations despite no infectious issues). I would like to start her on Stiolto for when she leaves. I will see her as an outpatient and diagnose her definitely with COPD once she has recovered. She is still wheezing and hypoxic, but hopefully the hypoxia will improve and she will not need home O2, although I do recommend a walk test immediately prior to discharge to assess for this. 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 She had pneumonia twice in the last year. She presented with dyspnea and cough and was found to have an oxygen need. Her imaging did not find evidence of a pneumonia but did find a 6mm nodule that will need follow up. She feels as though she has been improving since being the hospital. She was on oxygen this morning during our interview. She has never been diagnosed with COPD and has not had PFT's. Review of Systems All systems reviewed & are unremarkable except as noted in HPI and below PFSH All Active Problems (Updated 12/05/23 @ 13:04 by Sally Marx MD) Pulmonary nodule (Acute) Creatinine elevation (Acute) LISA (obstructive sleep apnea) (Chronic) Discharge planning issues (Acute) Dyslipidemia (Acute) Hypertension (Chronic) History of DVT (deep vein thrombosis) (Acute) Acute hypoxic respiratory failure (Acute) Continuous tobacco abuse (Acute) Shortness of breath (Acute) Hypoxia (Acute) Social History Smoking/Tobacco Use Status: Current every day Tobacco Type: cigarettes and e- cigarettes Smoking risk assessment performed?: Yes Alcohol Intake: former Drug use: Rarely Substance use type: marijuana Housing: apartment Do you feel safe at home: Yes Do you feel safe in your relationship?: Yes Visit Medication and Allergies Active Medications Generic Name Dose Route Start Last Admin Trade Name Freq PRN Reason Stop Dose Admin Acetaminophen 650 mg 12/03/23 18:09 12/04/23 15:33 Acetaminophen 325 Mg Tab PO 650 mg Q6H PRN PRN Administration Albuterol Sulfate 2.5 mg 12/03/23 18:42 Albuterol 2.5 Mg/3 Ml Inh Soln Vial UPD Q2H PRN PRN Albuterol/Ipratropium 3 ml 12/03/23 20:00 12/05/23 08:41 Albuterol/Ipratropium 3 Ml Upd Vial UPD 3 ml QID RANDI Administration Amlodipine Besylate 5 mg 12/04/23 08:30 12/05/23 09:33 Amlodipine 5 Mg Tab PO 5 mg DAILY RANDI Administration Atorvastatin Calcium 40 mg 12/04/23 08:30 12/05/23 09:29 Atorvastatin 40 Mg Tab PO 40 mg DAILY RANDI Administration Bupropion HCl 100 mg 12/04/23 08:30 12/05/23 09:30 Bupropion-Cr 100 Mg Tabcr PO 100 mg DAILY RANDI Administration Cholecalciferol 5,000 units 12/04/23 08:30 12/05/23 09:33 Cholecalciferol (Vitamin D3) 1,000 Unit Tab PO 5,000 units DAILY RANDI Administration Device 1 each 12/05/23 10:00 Inhaler, Assist Device MC DIRECTED RANDI Diphenhydramine HCl 25 mg 12/03/23 18:09 Diphenhydramine 25 Mg Cap PO HS PRN PRN Ferrous Sulfate 324 mg 12/04/23 08:30 12/05/23 09:31 Ferrous Sulfate 325 Mg Tab PO 325 mg DAILY RANDI Administration Hydroxyzine HCl 50 mg 12/03/23 20:00 12/05/23 09:30 Hydroxyzine Hcl 50 Mg Tab PO 50 mg BID RANDI Administration Sodium Chloride 500 mls @ 0 mls/hr 12/04/23 11:00 Saline 500ml Bag IV DIRECTED PRN As Directed IV Miscellaneous Supplies 1 each 12/04/23 11:00 Iv Access IV DIRECTED RANDI Melatonin 3 mg 12/03/23 22:00 12/04/23 21:39 Melatonin 3 Mg Tab PO 3 mg HS RANDI Administration Methocarbamol 750 mg 12/04/23 20:00 12/05/23 09:30 Methocarbamol 750 Mg Tab PO 750 mg BID RANDI Administration Multivitamins 1 tab 12/04/23 08:30 12/05/23 09:31 Multivitamin Tab PO 1 tab DAILY RANDI Administration Nicotine 4 mg 12/03/23 22:41 12/04/23 12:54 Nicotine 4 Mg Gum CH 4 mg Q2H PRN PRN Administration Omeprazole 40 mg 12/05/23 07:30 12/05/23 09:31 Omeprazole 20 Mg Capcr PO 40 mg DAILY@0730 RANDI Administration Prednisone 40 mg 12/04/23 08:30 12/05/23 09:32 Prednisone 20 Mg Tab PO 40 mg DAILY RANDI Administration Rivaroxaban 20 mg 12/04/23 08:30 12/05/23 09:29 Rivaroxaban 10 Mg Tablet PO 20 mg DAILY RANDI Administration Sertraline HCl 50 mg 12/04/23 08:30 12/05/23 09:30 Sertraline 50 Mg Tab PO 50 mg DAILY RANDI Administration Sodium Chloride 0 ml 12/03/23 13:24 Normal Saline 10 Ml Vial IJ DIRECTED PRN Sodium Chloride 50 ml 12/03/23 14:45 12/03/23 14:45 Normal Saline - Diluent 50 Ml Vial IJ 50 ml .FOR DI USE [facility] Administration Sodium Chloride 0 ml 12/04/23 11:00 Normal Saline Flush 10 Ml Syr IVP PRN PRN Tiotropium [place]/Olodaterol 2 puff 12/05/23 09:30 Tiotropium/Olodaterol 10 Puff Inhaler IH DAILY [facility] Allergies diclofenac [From Voltaren] Allergy (Mild, Verified 12/03/23 13:46) Skin Rash Exam Narrative Exam Narrative: Gen: NAD, normal respiratory effort, well-nourished HENT: PERRL Chest: No respiratory distress, normal appearance of chest, clear to auscultation bilaterally, diffuse expiratory wheeze Heart: regular rate and rhythym, no murmurs, rubs or gallops Abdomen: Non-distended, soft, non tender Extremities: No clubbing, edema, cyanosis, rashes Neuro: AAOx3 , non focal Psych: cooperative, appropriate mental affect Results Last Vital Signs Temp 36.8 C 12/05/23 09:59 Pulse 87 12/05/23 09:59 Resp 18 12/05/23 09:59 BP 134/78 12/05/23 09:59 Pulse Ox 90 L 12/05/23 09:59 Labs 12/05/23 06:24 12/05/23 06:24 Labs: Laboratory Results - last 24 hr 12/04/23 12/05/23 10:55 06:24 WBC 18.50 H 18.85 H RBC 4.78 4.85 Hgb 11.6 12.1 Hct 39.3 40.1 MCV 82 83 MCH 24.3 L 24.9 L MCHC 29.5 L 30.2 L RDW 18.4 H 18.4 H Plt Count 312 335 MPV 9.0 9.3 Immature Gran % 0.6 0.5 Neutrophils % 89.5 77.1 Lymphocytes % 5.1 13.9 Monocytes % 4.6 7.5 Eosinophils % 0.0 0.6 Basophils % 0.2 0.4 Nucleated RBC % 0.0 0.0 Absolute Neutrophils 16.56 H 14.53 H Absolute Lymphocytes 0.94 L 2.62 Absolute Monocytes 0.85 H 1.41 H Absolute Eosinophils 0.00 0.11 Absolute Basophils 0.04 0.08 Sodium 139 143 Potassium 4.5 4.0 Chloride 104 104 Carbon Dioxide 28.6 32.2 H Anion Gap 6.4 6.8 BUN 23 H 27 H Creatinine 1.1 H 1.1 H Est GFR (CKD-EPI 2020) 56.81 56.81 Glucose 234 H 130 H Calcium 9.4 9.0
[2023-12-05 12:10] VITALS: PULSE 118; PULSE 120; PULSE 130; RESP 22; RESP 25; RESP 26; O2SAT 89; O2SAT 92
[2023-12-05 12:15] VITALS: PULSE 115; RESP 25; RESP 9; O2SAT 92
[2023-12-05] MEDS: Tiotropium/Olodaterol 10 PUFF INHALER 2 PUFF IH (12:15)
[2023-12-05] MEDS: Bacitracin 1 PACKET TP (15:12)
[2023-12-05] MEDS: Acetaminophen 500 MG TAB 1000 MG PO (15:13)
--- NOTE | 2023-12-05 16:05 | CHAPLAIN ---
Sera was dressed when I visited. She said she hopes she's being discharged soon, waiting for paperwork. She's not sure she feels a lot better and wonders if this will be as good as she will feel. She said she's been diagnosis with significant respiratory issues while here. She has been smoking since she was 10, she told me, so the respiratory issues don't surprise her. She has been clean from drug use for 19 month and attends NA and AA meetings. Sera moved to the area within the past year to live with her sister. She asked that I continue to pray for her and I assured her I will.
--- NOTE | 2023-12-05 16:49 | PDOC.CMDIS ---
Date of service: 12/05/23 Time of Service: 16:49 LACE Index Scoring Tool Questions: Length of Stay (in days): 2 Was the patient admitted via the E.D.?: Yes Comorbidities: Chronic Pulmonary Disease E.D. Visits: 1 Answers: Total Score: 8 Risk of Readmission: Low Risk Care Management Discharge Plan Reason for Hospitalization: Acute respiratory failure, COPD exacerbation Discharge Plan: Sera will return home with no additional services, and transport via private vehicle with family. T-Doc referral provided for PCP follow up. Patient/Family Education Needs: Review discharge instructions, discuss Ask Me Three. SDOH Health Related Social Needs: Health related social needs transpo insecurity Health related social needs: transportation insecurity(Z59.82) Referrals and interventions: Patient education; PCP F/U, RCT
== END 2023-12-05 16:31 | disposition home or self-care (01) ==
LOC: ER 16:40 → MS 18:38
PROVIDERS: Nurse Practitioner Acute Care; Admitting Provider Internal Medicine; Emergency Provider Emergency Medicine; PCP Family Medicine; Visit Provider Internal Medicine
DX: J44.1 Chronic obstructive pulmonary disease with (acute) exacerbation (principal); J96.01 Acute respiratory failure with hypoxia; G47.33 Obstructive sleep apnea (adult) (pediatric); R91.1 Solitary pulmonary nodule; Z86.718 Personal history of other venous thrombosis and embolism; F17.290 Nicotine dependence, other tobacco product, uncomplicated; F17.210 Nicotine dependence, cigarettes, uncomplicated; E78.5 Hyperlipidemia, unspecified; I10 Essential (primary) hypertension; F12.90 Cannabis use, unspecified, uncomplicated; R79.89 Other specified abnormal findings of blood chemistry; Z79.899 Other long term (current) drug therapy
CPT/HCPCS: 00123; 36415; 71275; 80048; 80053; 82805; 84145; 87426; 93005; 94618; 94640; 96360; 96361; 96374; 99285; 71045; 83735; 83880; 84484; 85025; 85610; 85730; 93010; 94664; 94667; 94668; 94760; 99223; 99239; G0378; J2930; J3490; J7512; J7620

== ENCOUNTER 2023-12-30 05:00 | Outpatient (CLI) | payer MEDICAID, SELFPAY ==
[2023-12-30] MEDS: Inhaler, Assist Device 1 EACH MC (14:12)
[2023-12-30] MEDS: Levalbuterol HFA 15 GM INH 4 PUFF IH (14:12)
--- NOTE | 2024-01-01 09:25 | W.PFT ---
Date of service: 12/30/23 Time of Service: 13:01 Pulmonary Function Test Result Indications: COPD Interpretation Spirometry: There is no airflow limitation. No bronchodilator response. Lung Volumes: There is air trapping Diffusion Capacity: Normal diffusion Airway Pressure: Normal airways resistance Impression There is air trapping but no airflow obstruction. Clinical Correlation therefore is recommended.
== END 2023-12-30 05:01 | disposition home or self-care (01) ==
LOC: RT 05:00
PROVIDERS: PCP Family Medicine; Visit Provider Student in an Organized Health Care Education/Training Program
DX: J44.9 Chronic obstructive pulmonary disease, unspecified (principal)
CPT/HCPCS: 94060; 94726; 94729

== ENCOUNTER 2024-02-02 16:16 | Outpatient (REF) | payer MEDICAID, SELFPAY ==
[2024-02-02 15:45] LABS: Abs Immature Grans 0.12 10^3/uL (0.0-0.06); Absolute Basophil Count 0.09 10^3/uL (0.0-0.2); Absolute Eosinophil Count 0.56 10^3/uL (0.0-0.7); Absolute Lymphocyte Count 2.12 10^3/uL (1.2-3.4); Absolute Monocyte Count 0.99 10^3/uL (0.1-0.8); Absolute Neutrophil Count 9.36 10^3/uL (1.2-6.7); Basophils % 0.7; Eosinophils % 4.2; HCT 43.9 % (36.0-46.0); HGB 13.2 g/dL (11.2-15.7); Immature Grans % 0.9; MCH 25.3 pg (27.0-33.0); MCHC 30.1 % (32.0-36.0); MCV 84 fL (80-95); MPV 9.5 fL (8.0-11.0); Monocytes % 7.5; Neutrophils % 70.7; Platelet Count 315 10^3/uL (130-400); RBC 5.21 10^6/uL (3.93-5.22); RDW 17.6 % (11.7-14.6); RDW-SD 53.1 fL; WBC 13.24 10^3/uL (4.4-10.8)
[2024-02-02 16:39] LABS: Hemoglobin A1C 6.8 % (<5.7)
[2024-02-02 17:15] LABS: ALT 33 U/L (14-59); AST 16 U/L (15-37); Albumin 3.4 g/dL (3.4-5.0); Alkaline Phosphatase 94 U/L (46-116); Anion Gap 10.8 mmol/L (3-11); BUN 18 mg/dL (7-18); Bilirubin, Total 0.3 mg/dL (0.2-1.0); CO2 29.2 mmol/L (21.0-32.0); CREATININE 1.2 mg/dL (0.55-1.02); Calcium 9.4 mg/dL (8.5-10.1); Chloride 104 mmol/L (98-107); Estimated GFR 51.18 (mL/min/1.73m2); Glucose 120 mg/dL (74-106); NT-proBNP 45 pg/mL (<300); Sodium 144 mmol/L (136-145); TSH (W/Ref FT4) 3.44 uIU/mL (0.36-3.74)
[2024-02-02 17:56] LABS: Iron 44 ug/dL (50-170); Total Iron Binding Capacity 392 ug/dL (250-450); Transferrin Sat 11 % (15-50)
[2024-02-03 02:24] LABS: Ferritin 32 ng/mL (8-252)
== END 2024-02-02 16:17 | disposition home or self-care (01) ==
LOC: NCHCN 16:16
PROVIDERS: PCP Family Medicine; Visit Provider Family Medicine
DX: R06.01 Orthopnea (principal); R73.01 Impaired fasting glucose; R53.83 Other fatigue; R79.89 Other specified abnormal findings of blood chemistry; I10 Essential (primary) hypertension; E78.5 Hyperlipidemia, unspecified
CPT/HCPCS: 80053; 82728; 83036; 83540; 83550; 83880; 84443; 85025

== ENCOUNTER 2024-07-27 01:28 | Outpatient (CLI) | payer MEDICAID, SELFPAY ==
--- NOTE | 2024-07-27 07:45 | DI.CT_ITS ---
Exam(s) CT CHEST WO EXAM: CT CHEST WO CLINICAL HISTORY: assess stability RML pulmonary nodule,r91.1. TECHNIQUE: Imaging protocol: Axial computed tomography images were obtained and coronal and sagittal reformatted images were created and reviewed. COMPARISON: CR XR PORTABLE CHEST AP from 12/03/[address] CHEST PE CTA from 12/03/2023 FINDINGS: Tracheobronchial tree: Patent where visualized. No bronchiectasis is present. Pulmonary parenchyma: There is a stable 6 mm nodule in the right middle lobe. No new pulmonary nodul es are seen. No focal consolidating infiltrates are seen. No architectural distortion. Mediastinum and [place]: No dominant adenopathy or fluid collection. The esophagus is unremarkable. Thyroid gland: Unremarkable. Pleura: No effusion or pneumothorax. Heart: The heart is not dilated. Coronary artery calcifications are present. No pericardial effusion . Aorta: Thoracic aorta non-dilated. Atherosclerotic calcification is present. Upper abdomen: Status post cholecystectomy. Lymph nodes: Within normal limits. Soft tissues: Unremarkable. Bones:Within normal limits for the patient's age. IMPRESSION: 1. Stable 6 mm right middle lobe nodule. No new pulmonary nodules. 2. No acute pulmonary process. RADIATION DOSE DELIVERED: 275.08mGy.cm Total DLP 275.08mGy.cm Total DLP DATA REPOSITORY: All CT scans at this facility are submitted to the National Radiology Data Registry (NRDR) Dose Index Registry (DIR) with the [employer] (A[employer]). RADIATION OPTIMIZATION: All CT scans at this facility use at least one of these dose optimization te chniques: automated exposure control; mA and/or kV adjustment per patient size (includes targeted exa ms where dose is matched to clinical indication); or iterative reconstruction.
== END 2024-07-27 01:48 ==
LOC: DI 01:28
PROVIDERS: PCP Family Medicine; Visit Provider Physician Assistant Surgical
DX: R91.1 Solitary pulmonary nodule (principal)
CPT/HCPCS: 71250

== ENCOUNTER 2024-07-27 01:28 | Outpatient (CLI) | payer MEDICAID, SELFPAY ==
--- NOTE | 2024-07-27 | DI.MAMMO_ITS ---
Exam(s) MAMMO SCREENING EXAM: MAMMO SCREENING CLINICAL HISTORY: SCREENING, Z12.31 TECHNIQUE: Mammograms were interpreted according to the usual protocol including computer analysis w [employer] CAD system, tomosynthesis and C-view imaging. COMPARISON: 2008 through 2022 FINDINGS: The breasts are composed of scattered fibroglandular densities, Breast Density category B. No suspicious masses or suspicious microcalcifications are seen. No skin thickening or abnormal axillary lymph nodes are seen. There has been no significant change from prior exams. IMPRESSION: BI-RADS Category 1, Negative mammogram Yearly screening mammography is recommended. Breast Density - Category B, scattered fibroglandular densities. A negative radiographic report should not delay biopsy if a dominant or clinically suspicious mass is present. Up to ten percent of cancers are not identified on mammography. A negative report may reinforce clinical impression. Adenosis and dense breasts may obscure an underlying neoplasm. False positive reports average 6 to 10%. Patient will receive a letter notifying them of these results.
== END 2024-07-27 01:48 ==
LOC: DI 01:28
PROVIDERS: PCP Family Medicine; Visit Provider Family Medicine
DX: Z12.31 Encounter for screening mammogram for malignant neoplasm of breast (principal); R91.1 Solitary pulmonary nodule
CPT/HCPCS: 77063; 77067

== ENCOUNTER 2024-08-03 01:06 | Outpatient (CLI) | payer MEDICAID, SELFPAY ==
--- NOTE | 2024-08-03 | DI.US_ITS ---
APPROVED REPORT EXAM: Comprehensive 2D, Doppler, and color-flow Echocardiogram Patient Location: Out-Patient Wafer Cutter: Fern Griggs RDCS (AE) Indications: Orthopnea Other Information Study Quality: Adequate. Technically limited study due to body habitus limited parasternal imaging.. Conclusion Normal left ventricular wall thickness and chamber size. Ejection fraction is 57%. Wall motion appe ars normal Normal right ventricular size and function Both atria are normal in size There are no structural valvular abnormalities There is mild aortic regurgitation Severely dilated aortic root, mildly dilated ascending aorta Wall motion Left Ventricle Technically limited parasternal imaging. The left ventricular systolic function is normal. The left v entricular ejection fraction is within the normal range. There is normal LV segmental wall motion. Th ere is no ventricular septal defect visualized. LVEF is 57%. Right Ventricle The right ventricle is normal size. The right ventricular systolic function is normal. Atria The left atrium size is normal. The right atrium size is normal. The interatrial septum is intact wit h no evidence for an atrial septal defect. Aortic Valve The aortic valve is normal in structure. Aortic valve is trileaflet. There is no aortic valvular sten osis. Mild aortic regurgitation. Mitral Valve The mitral valve is normal in structure. No evidence of mitral valve stenosis. Trace mitral regurgita tion. Tricuspid Valve The tricuspid valve is normal in structure. There is no tricuspid valve stenosis. Trace tricuspid reg urgitation. Unable to assess PA pressure. Pulmonic Valve The pulmonary valve is normal in structure. There is no pulmonic valvular stenosis. There is no pulmo gracy valvular regurgitation. Great Vessels Aortic root is severely dilated. The ascending aorta is mildly dilated. Aortic arch is normal in crystal [place]. IVC is normal in size and collapses >50% with inspiration. Pericardium There is no pericardial effusion. 2D Dimensions Ao Root d 4.82 cm F: 2.7 - 3.3 Ao Asc Diam d 3.70 cm F: 2.3 - 3.1 M-Mode TAPSE 2.23 cm (M/F) >1.7 Auto EF LV EDV A4C 102.6 mL LV EDV A2C 107.4 mL LV EDV BP 105.7 mL LV ESV A4C 45.1 mL LV ESV A2C 44.9 mL LV ESV BP 45.1 mL LVEF(%) A4C 56.0 % LVEF(%) A2C 58.2 % LVEF(%) BP 57.3 % LV SV A4C 57.4 ml LV SV A2C 62.5 ml LV SV BP 60.5 ml LV CO A4C 4.3 L/min LV CO A2C 4.4 L/min LV CO BP 4.3 L/min HR A4C 74.84 BPM HR A2C 70.01 BPM LV EDV Index (BP) LA Volume LA Length A4C 3.9 cm LA Length A2C 5.5 cm LA Area A4C s 11.11 cm2 LA Area A2C s 16.32 cm2 LA Vol A4C A-L 26.86 mL LA Vol A2C A-L 41.04 mL LA Vol Biplane A-L 39.5 mL LA Vol/BSA A4C A-L LA Vol/BSA A2C A-L LA Vol/BSA BP A-L 19.4 mL/m2 LA Vol A4C MOD 22.9 mL LA Vol A2C MOD 38.7 mL LA Vol BP MOD 35.1 mL RA Volume RA Area A4C 9.8 cm2 RA ESV A4C (A-L) 19.3mL RA Vol/BSA A4C A-L RA Length A4C 4.2 cm RA ESV A4C (MOD) 18.5mL LV Diastology MV E' medial 0.056 (>0.07 m/s) MV E Vmax 0.72 (0.4-1.3 m/s) MV E/E' MED 12.84 (<14) MV A Vmax 0.95 (0.4-1.3 m/s) MV E' lateral 0.087 (>0.1 m/s) E/A Ratio 0.8 MV E/E' LAT 8.25 (<14) MV E' Average 0.072 m/s MV E/E'(average) 10.05 Aortic Valve AoV Vmax 1.31 m/s LVOT Vmax 1.01 m/s AoV Peak Grad 43.4 mmHg LVOT Peak Grad 4.0 mmHg AoV Area (Vmax) 2.42 cm2 LVOT VTI 0.183 m AoV VTI 0.256 m LVOT Mean Grad 2.1 mmHg AoV Mean Kevin. 0.88 m/s LVOT SV 57.80 mL AoV Mean Grad 3.6 mmHg LVOT Diam s 2.00 cm AoV Area (VTI) 2.26 cm2 AV Regurg Peak Gr. 6.88 mmHg Velocity Ratio 0.77 AR Decel [place] 1.2m/sec2 AR DT 3696 msec AR PHT 1072 msec AR Vmax 4.47 m/s Mitral Valve MV DT 267 (160-240 msec) MV Vmax TIPS 0.91 m/s MV Mean Grad 1.7 (<2mmHg) MV VTI 0.226 m Pulmonary Valve PV Vmax 0.96 (0.5-1.5 m/s) RVOT Vmax 0.89 m/s PV Peak Grad 3.7 mmHg RVOT Peak Gr. 3.2 mmHg PV Mean Kevin 0.70 m/s RVOT VTI 0.156 m PV Mean Grad 2.2 mmHg RVOT Mean Gr. 1.5 mmHg Tricuspid Valve TV S' 0.15 m/s
== END 2024-08-03 01:26 ==
LOC: DI 01:06
PROVIDERS: PCP Family Medicine; Visit Provider Family Medicine
DX: R06.01 Orthopnea (principal)
CPT/HCPCS: 93306

== ENCOUNTER 2024-10-11 19:21 | Emergency (ER) | payer MEDICAID, SELFPAY ==
[2024-10-11] VITALS (21 sets, daily range): BP systolic 122–143; BP diastolic 74–93; PULSE 89–120; RESP 12–27; TEMP 36.4–36.9; O2SAT 91–95
--- NOTE | 2024-10-11 19:15 | RT.EKG_ITS ---
APPROVED REPORT Exam: Resting ECG Reason for Exam: chest pain Patient Location: E HR:122 bpm ECG Measurements Heart Rate 122 AXIS UT 139 P -44 QRSd 89 QRS 49 QT 392 T 89 QTc 559 Conclusion Sinus tachycardia 122 normal axis no stemi
--- NOTE | 2024-10-11 19:45 | DI.CT_ITS ---
Exam(s) CT THORAX ABD/PEL CTA EXAM: CT THORAX ABD/PEL CTA CLINICAL HISTORY: CHEST PAIN. TECHNIQUE: Imaging Protocol: Axial computed tomography images with coronal and sagittal reformatted images were created and reviewed CONTRAST MATERIAL: Intravenous: Omnipaque 350 Contrast volume:100 ml Oral: None COMPARISON: CT CT CHEST PE CTA from 12/03/[address] CHEST WO from 07/27/2024 FINDINGS: CHEST: AORTA: The diameter of the ascending thoracic aorta is upper normal. Diameter of the aortic arch and descending thoracic aorta are upper normal. No significant stenosis at the origin of the great vess els off the aortic arch. Mild calcifications noted at the origin of the left subclavian artery but w ithout significant stenosis at this level. There is no evidence of aortic dissection nor pericardial effusion. There is moderate atherosclerotic disease in the abdominal aorta without evidence of aneu rysmal dilatation. Also no aneurysmal dilatation of the iliac arteries nor of the common femoral art eries. There is calcified plaque at the origin of the left renal artery; less so at the origin of the right renal artery. No poststenotic dilatation. No critical stenosis evident in the renal arteries and alden th kidneys exhibit normal size. There is mild stenosis at the origin of the celiac artery and some c alcified plaque at the origin of the superior mesenteric artery but without a significant stenosis ev ident at this level. The inferior mesenteric artery is patent. There is no evidence of dissection in the thoracic aorta nor within the abdominal aorta nor within th e aortoiliac segments bilaterally. LUNGS: No infiltrates nor pleural effusions. No pneumothorax. There is a small 4 millimeter nodule in the lateral right lung base. No other focal lung findings. Slight elevation left hemidiaphragm e vident. No findings in the trachea and mainstem bronchi. No bronchiectasis. No obvious pulmonary e mboli.. MEDIASTINUM: There is no hilar nor mediastinal adenopathy. Small nodule or colloid cyst is noted in the lateral aspect of the right thyroid lobe CARDIAC: Heart size is normal. There is no pericardial effusion. ABDOMEN: There is no ascites. LIVER: There are no focal hepatic lesions nor dilatation of intrahepatic ducts. GALLBLADDER/BILIARY: Gallbladder surgically absent. CBD is not dilated. PANCREAS: No evidence of pancreatic mass nor dilatation of the pancreatic duct. SPLEEN: Spleen is not enlarged. There are no intrasplenic lesions. ADRENALS: There are no significant adrenal masses. KIDNEYS: There is a solitary cyst in the lateral cortex of the left kidney which measures 4.5 x 4.2 c m. This benign cyst does not require further workup appears no calculi nor hydronephrosis. No solid renal masses. ABDOMINAL AORTA: The abdominal aorta is not enlarged. LYMPH NODES: There is no retroperitoneal nor para-aortic adenopathy. No obvious mesenteric masses. ABDOMINAL WALL: No evidence of significant anterior abdominal wall hernia. GI: There is no evidence of bowel obstruction, free air, nor abscess. PELVIS: LYMPH NODES: There is no intrapelvic nor inguinal adenopathy. GI: No evidence of appendicitis.No evidence of sigmoid diverticulitis. URINARY BLADDER: No calculi nor masses evident. There appears to be evidence of prior bladder suspen valentino surgery REPRODUCTIVE: Uterus and adnexal regions appear unremarkable. No free fluid in the pelvis. OSSEOUS: No significant osseous lesions. No fractures. No significant osseous lesions. Sacroiliac joints appear unremarkable. Multilevel de generative disc disease L4-5 and L5-S1 levels. IMPRESSION: 1. No evidence of aortic dissection nor pericardial effusion. No aneurysms. 2. Single 4-5 mm nodule lateral right lung base. Other findings as above. Fleischner society 2017 recommendations: For patient is at low risk (minimal or absent history of smo danie and other known risk factors), recommend chest CT scan in 6-12 months. For patients at high ris k (history of smoking or other known risk factors) recommend chest CT scan at 6-12 months then repeat at 18-24 months. Reference: Conti et all; guidelines for management of incidental pulmonary nodules detected on CT s can (2017). 4. RADIATION DOSE DELIVERED: 1,255.71mGy.cm Total DLP DATA REPOSITORY: All CT scans at this facility are submitted to the National Radiology Data Registry (NRDR) Dose Index Registry (DIR) with the [employer] (ACR). RADIATION OPTIMIZATION: All CT scans at this facility use at least one of these dose optimization te chniques: automated exposure control; mA and/or kV adjustment per patient size (includes targeted exa ms where dose is matched to clinical indication); or iterative reconstruction.
[2024-10-11 19:56] LABS: Abs Immature Grans 0.06 10^3/uL (0.0-0.06); Absolute Basophil Count 0.07 10^3/uL (0.0-0.2); Absolute Eosinophil Count 0.49 10^3/uL (0.0-0.7); Absolute Lymphocyte Count 2.21 10^3/uL (1.2-3.4); Basophils % 0.5 %; Eosinophils % 3.4 %; HCT 45.6 % (36.0-46.0); HGB 14.2 g/dL (11.2-15.7); Immature Grans % 0.4 %; Lymphocytes % 15.4 %; MCH 27.6 pg (27.0-33.0); MCHC 31.1 % (32.0-36.0); MCV 89 fL (80-95); MPV 9.1 fL (8.0-11.0); Monocytes % 5.6 %; Neutrophils % 74.7 %; Platelet Count 346 10^3/uL (130-400); RBC 5.14 10^6/uL (3.93-5.22); RDW 14.4 % (11.7-14.6); RDW-SD 46.7 fL; WBC 14.37 10^3/uL (4.4-10.8)
[2024-10-11 19:57] LABS: Absolute Neutrophil Count 10.73 10^3/uL (1.2-6.7)
[2024-10-11] MEDS: Omnipaque 350 MG/ML 100 ML BTL IJ (20:05)
[2024-10-11] MEDS: Normal Saline - Diluent 50 ML VIAL IJ (20:07)
[2024-10-11] MEDS: Normal Saline Flush 10 ML SYR IVP (20:08)
[2024-10-11 20:20] LABS: ALT 25 U/L (14-59); AST 12 U/L (15-37); Albumin 3.3 g/dL (3.4-5.0); Alkaline Phosphatase 96 U/L (46-116); Anion Gap 11.3 mmol/L (3-11); BUN 19 mg/dL (7-18); Bilirubin, Total 0.32 mg/dL (0.2-1.0); CO2 27.7 mmol/L (21.0-32.0); CREATININE 1.3 mg/dL (0.55-1.02); Chloride 103 mmol/L (98-107); Estimated GFR 46.21 (mL/min/1.73m2); Glucose 170 mg/dL (74-106); Magnesium 1.9 mg/dL (1.8-2.4); NT-proBNP 37 pg/mL (<300); Potassium 3.6 mmol/L (3.5-5.1); Sodium 142 mmol/L (136-145); Total Protein 7.5 g/dL (6.4-8.2); Troponin I 5 ng/L (<or=51)
[2024-10-11 20:22] LABS: Bilirubin Negative (Negative); Blood Trace-intact (Negative); Clarity Clear (Clear); Glucose >=1000 mg/dL (Negative); Ketones Negative (Negative); Leukocyte Esterase Negative (Negative); Nitrite Positive (Negative); Urobilinogen 0.2 mg/dL (Up to 0.2); pH 5.5 (5-8)
[2024-10-11 20:30] LABS: Bacteria Moderate HPF (Negative); C & S Indicated? No/Sq. Contamination; Casts Negative LPF (Negative); Crystals Negative HPF (Negative); Epithelial Cells Many HPF (Negative); Mucus Negative (Negative); Other Cells Rare Transitional (Negative); RBC 0-2 HPF (0-2)
[2024-10-11 20:55] LABS: Troponin I 4 ng/L (<or=51)
--- NOTE | 2024-10-11 21:32 | DI.VRAD_ITS ---
PROCEDURE INFORMATION: Exam: CTA Chest With Contrast CTA Abdomen and Pelvis With Contrast Exam date and time: 10/11/2024 7:59 PM Age: 64 years old Clinical indication: Abdominal pain; Generalized; Patient HX: Chest pain, abd pain TECHNIQUE: Imaging protocol: Computed tomographic angiography of the chest with contrast. Exam focused on the arteries. Computed tomographic angiography of the abdomen and pelvis with contrast. Exam focused on the arteries. 3D rendering (Not supervised by radiologist): MIP and/or 3D reconstructed images were created by the technologist. Radiation optimization: All CT scans at this facility use at least one of these dose optimization techniques: automated exposure control; mA and/or kV adjustment per patient size (includes targeted exams where dose is matched to clinical indication); or iterative reconstruction. Contrast material: OMNIPAQUE 350; Contrast volume: 100 ml; Contrast route: INTRAVENOUS (IV); COMPARISON: CT CHEST PE CTA 12/03/2023 2:49 PM FINDINGS: VASCULATURE: Pulmonary arteries: Normal. No pulmonary emboli. Aorta: There is mild diffuse atherosclerotic disease of the abdominal aorta. Celiac trunk and mesenteric arteries: See Renal arteries finding. Renal arteries: Narrowing of the ostium of the renal arteries, [id number]. Mild narrowing of the celiac artery. Right iliac arteries: No occlusion or significant stenosis. Left iliac arteries: No occlusion or significant stenosis. Thyroid: Subcentimeter low attenuating right thyroid nodule. CHEST: Trachea: The central airways clear. Lungs: 6 mm right lung base nodule. Pleural spaces: Unremarkable. No pneumothorax. No pleural effusion. Heart: No cardiomegaly or pericardial effusion. No pulmonary embolus Coronary arteries: No coronary calcifications. ABDOMEN AND PELVIS: Liver: The liver is unremarkable. Gallbladder and biliary ducts: Post cholecystectomy. Pancreas: The pancreas is unremarkable. Spleen: No splenomegaly. No lesions. Adrenal glands: The adrenal glands are unremarkable. Kidneys and ureters: Stable 4.3 cm left renal cysts. Stomach and bowel: No evidence of bowel obstruction. No pericolonic inflammatory stranding. Appendix: Normal appendix. Intraperitoneal space: Unremarkable. No free air. No significant fluid collection. Urinary bladder: No focal wall thickening of the urinary bladder. Reproductive: Unremarkable as visualized. Lymph nodes: Unremarkable. No enlarged lymph nodes. Bones/joints: The lumbar spine demonstrates moderate degenerative changes at multiple levels. No acute osseous abnormality. Soft tissues: No chest wall lesions. Soft tissues are unremarkable as visualized. IMPRESSION: 1. 6 mm right lung base nodule. 2. Subcentimeter low attenuating right thyroid nodule. For patients at low risk (minimal or absent history of smoking and of other known risk factors), recommend CT Chest at 6-12 months, then consider CT Chest at 18-24 months. For patients at high risk (history of smoking or of other known risk factors), recommend CT Chest at 6-12 months, then CT Chest at 18-24 months. (Reference: Carmen) References: Carmen Dinero, et al. Guidelines for Management of Incidental Pulmonary Nodules Detected on CT Images: From the Fleischner Society 2017. Radiology. 2017;284(1):228-243. Dictated and Authenticated by: Vidya Bass MD. Ordering:DEE Funes MD
[2024-10-11] MEDS: ALPRAZolam 0.5 MG TAB PO (21:34)
--- NOTE | 2024-10-11 21:50 | W.ED.GENAD ---
Discharge Plan Disposition Patient Disposition: Home Condition: Stable Discharge Details Clinical Impression: Chest pain Primary Care Provider: Sherrell Weiss ED Provider: Jass Gibbs Home Meds and New Rx's Prescriptions: No Action Stiolto Respimat 2.5-2.5 mcg/actuation mist 2 puff inhalation DAILY Qty: 4 12RF nicotine (polacrilex) 4 mg gum 4 mg buccal Q1H Qty: 50 5RF Xarelto 20 mg tablet 20 mg PO DAILY Rx Instructions: must administer with evening meal amlodipine 5 mg tablet 5 mg PO DAILY sertraline 50 mg tablet 50 mg PO DAILY atorvastatin 40 mg tablet 40 mg PO DAILY hydroxyzine HCl 50 mg tablet 50 mg PO BID omeprazole 40 mg capsule,delayed release(DR/EC) 40 mg PO DAILY ferrous sulfate [Feosol] 325 mg (65 mg iron) tablet 324 mg PO DAILY cholecalciferol (vitamin D3) [Vitamin D3] 125 mcg (5,000 unit) tablet 5,000 unit PO DAILY multivitamin [Daily Multi-Vitamin] Tablet 1 tab PO DAILY albuterol sulfate 2.5 mg /3 mL (0.083 %) Solution For Nebulization 2.5 mg UPD Q4H PRN PRNQty: 75 0RF albuterol sulfate 90 mcg/actuation HFA aerosol inhaler 2 puff inhalation Q12H PRN PRNQty: 6.7 0RF Rx Instructions: While outside of home setting Discharge Instructions Instructions: Chest Pain (DC) Additional Instructions: EKG, LABS AND CT SCAN ARE ALL UNREMARKABLE PLEASE KEEP FOLLOW UP APPOINTMENTS HPI General Date/Time Provider Initiated Documentation: 10/11/24 19:42. Limitations to Documentation: no limitations. Information obtained by: patient. HPI Narrative: 64-year-old female with past medical history of COPD aortic dilation presents for evaluation of chest pain. She reports that she has been having symptoms for a couple of days. She states that she has some mild chest pain but mostly is just back pain. She received aspirin and nitroglycerin by EMS with minimal resolution of her symptoms. She reports a recent catheterization at [facility], but did not need a stent. Denies any shortness of breath, states that she has been short of breath for years. Denies any recent sick symptoms cough fever or URI. Related Data Home Medications ?Medication ?Instructions ?Recorded ?Confirmed amlodipine 5 mg tablet 5 mg PO DAILY 12/03/23 10/11/24 atorvastatin 40 mg tablet 40 mg PO DAILY 12/03/23 10/11/24 cholecalciferol (vitamin D3) 125 5,000 unit PO DAILY 12/03/23 10/11/24 mcg (5,000 unit) tablet (Vitamin D3) ferrous sulfate 325 mg (65 mg 324 mg PO DAILY 12/03/23 10/11/24 iron) tablet (Feosol) hydroxyzine HCl 50 mg tablet 50 mg PO BID 12/03/23 10/11/24 multivitamin (Daily Multi-Vitamin 1 tab PO DAILY 12/03/23 10/11/24 tablet) omeprazole 40 mg capsule,delayed 40 mg PO DAILY 12/03/23 10/11/24 release rivaroxaban 20 mg tablet (Xarelto) 20 mg PO DAILY 12/03/23 10/11/24 sertraline 50 mg tablet 50 mg PO DAILY 12/03/23 10/11/24 albuterol sulfate 2.5 mg/3 mL 2.5 mg (3 mL) UPD Q4H PRN PRN #75 12/05/23 10/11/24 (0.083 %) solution for nebulization mL albuterol sulfate 90 mcg/actuation 2 puff inhalation Q12H PRN PRN 12/05/23 10/11/24 aerosol inhaler #6.7 grams nicotine (polacrilex) 4 mg gum 4 mg buccal Q1H #50 ea 12/22/23 10/11/24 tiotropium 2.5 mcg-olodaterol 2.5 2 puff inhalation DAILY #4 grams 12/22/23 10/11/24 mcg/actuation mist for inhalation (Stiolto Respimat) Previous Rx's ?Medication ?Instructions ?Recorded albuterol sulfate 2.5 mg/3 mL 2.5 mg (3 mL) UPD Q4H PRN PRN #75 12/05/23 (0.083 %) solution for nebulization mL albuterol sulfate 90 mcg/actuation 2 puff inhalation Q12H PRN PRN 12/05/23 aerosol inhaler #6.7 grams nicotine (polacrilex) 4 mg gum 4 mg buccal Q1H #50 ea 12/22/23 tiotropium 2.5 mcg-olodaterol 2.5 2 puff inhalation DAILY #4 grams 12/22/23 mcg/actuation mist for inhalation (Stiolto Respimat) Allergies Allergy/AdvReac Type Severity Reaction Status Date / Time diclofenac (From Voltaren) Allergy Mild Skin Rash Verified 10/11/24 19:33 General Stated Complaint: Chest Pain EMETERIO: 3 Exam Narrative Exam Narrative: Review of Systems: All systems reviewed & are unremarkable except as noted in HPI and below Well-developed, no acute distress NCAT PERRL, normal conjunctiva RRR no chest wall tenderness no murmur Unlabored respiratory effort clear bilaterally no wheezing Nondistended abdomen soft nontender Extremities w/o edema no focal neurologic deficits Course Vital Signs Vital signs: Vital Signs Temperature 36.4 C 10/11/24 19:24 Pulse 120 H 10/11/24 19:24 Respiratory Rate 16 10/11/24 19:24 Blood Pressure 123/84 10/11/24 19:24 Pulse Oximetry 94 10/11/24 19:24 Temperature 36.9 C 10/11/24 19:49 Temperature Source Oral 10/11/24 19:49 Pulse 91 H 10/11/24 21:01 Pulse 95 H 10/11/24 21:01 Respiratory Rate 24 10/11/24 21:01 Respiratory Effort Normal, Short of Breath 10/11/24 19:44 Respiratory Depth Normal 10/11/24 19:44 Respiratory Pattern Normal 10/11/24 19:44 Blood Pressure 143/92 H 10/11/24 21:01 Blood Pressure Mean 107 10/11/24 21:01 Blood Pressure Position Supine 10/11/24 19:24 Pulse Oximetry 92 10/11/24 21:01 Oxygen Delivery Method Room Air 10/11/24 19:24 Oxygen Flow Rate 0 10/11/24 19:24 Pain Level 2 10/11/24 19:24 Comment 5/10 at worst, 2/10 post EMS NTG and ASA 10/11/24 19:24 Lab/Test Results Lab/Test Results: Laboratory Tests Range/Units 10/11/24 10/11/24 10/11/24 19:34 20:00 20:30 WBC (4.4-10.8) 10^3/uL 14.37 H RBC (3.93-5.22) 10^6/uL 5.14 Hgb (11.2-15.7) g/dL 14.2 Hct (36.0-46.0) % 45.6 MCV (80-95) fL 89 MCH (27.0-33.0) pg 27.6 MCHC (32.0-36.0) % 31.1 L RDW (11.7-14.6) % 14.4 Plt Count (130-400) 10^3/uL 346 MPV (8.0-11.0) fL 9.1 Immature Gran % % 0.4 Neutrophils % % 74.7 Lymphocytes % % 15.4 Monocytes % % 5.6 Eosinophils % % 3.4 Basophils % % 0.5 Nucleated RBC % (0.0-0.3) % 0.0 Absolute Neutrophils (1.2-6.7) 10^3/uL 10.73 H Absolute Lymphocytes (1.2-3.4) 10^3/uL 2.21 Absolute Monocytes (0.1-0.8) 10^3/uL 0.80 Absolute Eosinophils (0.0-0.7) 10^3/uL 0.49 Absolute Basophils (0.0-0.2) 10^3/uL 0.07 Sodium (136-145) mmol/L 142 Potassium (3.5-5.1) mmol/L 3.6 Chloride (98-107) mmol/L 103 Carbon Dioxide (21.0-32.0) mmol/L 27.7 Anion Gap (3-11) mmol/L 11.3 H BUN (7-18) mg/dL 19 H Creatinine (0.55-1.02) mg/dL 1.3 H Est GFR (CKD-EPI 2020) (mL/min/1.73m2) 46.21 Glucose (74-106) mg/dL 170 H Calcium (8.5-10.1) mg/dL 9.0 Magnesium (1.8-2.4) mg/dL 1.9 Total Bilirubin (0.2-1.0) mg/dL 0.32 AST (15-37) U/L 12 L ALT (14-59) U/L 25 Alkaline Phosphatase (46-116) U/L 96 Troponin I (<or=51) ng/L 5 4 NT-Pro-B Natriuret Pep (<300) pg/mL 37 Total Protein (6.4-8.2) g/dL 7.5 Albumin (3.4-5.0) g/dL 3.3 L Urine Color (Yellow) Yellow Urine Clarity (Clear) Clear Urine pH (5-8) 5.5 Ur Specific [place] (1.005-1.025) 1.010 Urine Protein (Neg-Trace) mg/dL Negative Urine Ketones (Negative) mg/dL Negative Urine Blood (Negative) Trace-intact H Urine Nitrite (Negative) Positive H Urine Bilirubin (Negative) Negative Urine Urobilinogen (Up to 0.2) mg/dL 0.2 Ur Leukocyte Esterase (Negative) Negative Urine RBC (0-2) HPF 0-2 Urine WBC (0-5) HPF 10-20 H Ur Epithelial Cells (Negative) HPF Many Urine Crystals (Negative) HPF Negative Urine Bacteria (Negative) HPF Moderate Urine Casts (Negative) LPF Negative Urine Mucus (Negative) Negative Urine Other (Negative) Rare Transitional Ur Culture Indicated? No/Sq. Contamination Urine Glucose (Negative) mg/dL >=1000 H Range/Units 10/11/24 22:48 WBC (4.4-10.8) 10^3/uL RBC (3.93-5.22) 10^6/uL Hgb (11.2-15.7) g/dL Hct (36.0-46.0) % MCV (80-95) fL MCH (27.0-33.0) pg MCHC (32.0-36.0) % RDW (11.7-14.6) % Plt Count (130-400) 10^3/uL MPV (8.0-11.0) fL Immature Gran % % Neutrophils % % Lymphocytes % % Monocytes % % Eosinophils % % Basophils % % Nucleated RBC % (0.0-0.3) % Absolute Neutrophils (1.2-6.7) 10^3/uL Absolute Lymphocytes (1.2-3.4) 10^3/uL Absolute Monocytes (0.1-0.8) 10^3/uL Absolute Eosinophils (0.0-0.7) 10^3/uL Absolute Basophils (0.0-0.2) 10^3/uL Sodium (136-145) mmol/L Potassium (3.5-5.1) mmol/L Chloride (98-107) mmol/L Carbon Dioxide (21.0-32.0) mmol/L Anion Gap (3-11) mmol/L BUN (7-18) mg/dL Creatinine (0.55-1.02) mg/dL Est GFR (CKD-EPI 2020) (mL/min/1.73m2) Glucose (74-106) mg/dL Calcium (8.5-10.1) mg/dL Magnesium (1.8-2.4) mg/dL Total Bilirubin (0.2-1.0) mg/dL AST (15-37) U/L ALT (14-59) U/L Alkaline Phosphatase (46-116) U/L Troponin I (<or=51) ng/L Cancelled NT-Pro-B Natriuret Pep (<300) pg/mL Total Protein (6.4-8.2) g/dL Albumin (3.4-5.0) g/dL Urine Color (Yellow) Urine Clarity (Clear) Urine pH (5-8) Ur Specific [place] (1.005-1.025) Urine Protein (Neg-Trace) mg/dL Urine Ketones (Negative) mg/dL Urine Blood (Negative) Urine Nitrite (Negative) Urine Bilirubin (Negative) Urine Urobilinogen (Up to 0.2) mg/dL Ur Leukocyte Esterase (Negative) Urine RBC (0-2) HPF Urine WBC (0-5) HPF Ur Epithelial Cells (Negative) HPF Urine Crystals (Negative) HPF Urine Bacteria (Negative) HPF Urine Casts (Negative) LPF Urine Mucus (Negative) Urine Other (Negative) Ur Culture Indicated? Urine Glucose (Negative) mg/dL Medical Decision Making Emergent evaluation of chest pain. Symptoms do not seem consistent with cardiac etiology given the time course. An EKG was obtained for evaluation reviewed and independently interpreted. Sinus 122 normal axis no acute ischemia. Initial differential includes ACS, aortic dissection, COPD exacerbation. Although the initial EKG was sinus tachycardia, on my examination, the patient had a normal heart rate and was observed to have a normal heart rate throughout the rest of her stay. Lab work was obtained. Mild leukocytosis consistent with prior, likely long-term steroid use. Her creatinine is at baseline. There are no significant electrolyte derangements no changes in her LFTs. Serial troponins were obtained and these were not elevated. Urinalysis was nitrite positive but no leukocyte esterase. I feel this is likely more contaminated than a true infection and she has no urinary tract symptoms. Advised that if she does develop UTI symptoms, she should follow-up with her PCP for repeat urinalysis. A CTA was obtained to evaluate for her history of aortic dilation and this did not reveal any signs of significant aneurysm dissection, pulmonary embolism or other abnormality to explain her chest pain. Reevaluation the patient felt fine and was ready for discharge home. Recommend close follow-up with her cardiology team as scheduled. Quality:SDOH Health Related Social Needs: Health related social needs transportation insecurity(Z59.82) PFSH All Active Problems Chest pain (Acute) COPD (chronic obstructive pulmonary disease) (Chronic) Nicotine dependence, cigarettes, uncomplicated (Acute) Pulmonary nodule (Acute) LISA (obstructive sleep apnea) (Chronic) Acute hypoxic respiratory failure (Acute) Continuous tobacco abuse (Acute) Medical History Dyslipidemia Hypertension History of DVT (deep vein thrombosis) Social History Smoking/Tobacco Use Status: Current every day Tobacco Type: cigarettes and e-cigarettes Smoking risk assessment performed?: Yes Alcohol Intake: former Drug use: Rarely Substance use type: marijuana Housing: apartment Do you feel safe at home: Yes Do you feel safe in your relationship?: Yes
== END 2024-10-11 21:56 | disposition home or self-care (01) ==
PROVIDERS: Emergency Provider Emergency Medicine; PCP Family Medicine
DX: R07.9 Chest pain, unspecified (principal); J44.9 Chronic obstructive pulmonary disease, unspecified; Z59.82 Transportation insecurity; I10 Essential (primary) hypertension; E78.5 Hyperlipidemia, unspecified; Z86.718 Personal history of other venous thrombosis and embolism; Z79.01 Long term (current) use of anticoagulants; F17.210 Nicotine dependence, cigarettes, uncomplicated
CPT/HCPCS: 36415; 71275; 80053; 82962; 93005; 99285; 74174; 81003; 81015; 83735; 83880; 84484; 85025; 93010; J3490

== ENCOUNTER 2024-12-16 15:47 | Outpatient (CLI) | payer MEDICAID, SELFPAY ==
--- NOTE | 2024-12-16 15:13 | DI.RAD_ITS ---
Exam(s) XR ARTHRITIS SERIES EXAM: XR ARTHRITIS SERIES CLINICAL HISTORY: M79.611 pain in rt finger, M79.645 Pain in left fingers, over the thumb CMC. TECHNIQUE: 2D digital imaging was performed. Two views of both hands. COMPARISON: No exams were available for comparison FINDINGS: BONES: No acute fracture is present. No erosive or productive bony lesions are seen. JOINTS: No dislocation present. Mild narrowing of the interphalangeal joints of both thumbs mild per iarticular spurring. Remaining interphalangeal joints show minimal periarticular spurring. There ar e mild degenerative changes at the left 1st carpal metacarpal joint. There are more prominent degene rative changes at the right 1st carpometacarpal joint which shows some medial spurring. SOFT TISSUE: Normal. IMPRESSION: Degenerative changes of the interphalangeal joints and 1st carpometacarpal joints. No bony erosions. DATA REPOSITORY: RADIATION DOSE DELIVERED:
== END 2024-12-16 16:07 ==
LOC: DI 15:48
PROVIDERS: PCP Family Medicine; Visit Provider Family Medicine
DX: M19.042 Primary osteoarthritis, left hand (principal); M79.641 Pain in right hand
CPT/HCPCS: 73120

== ENCOUNTER 2024-12-16 20:37 | Outpatient (REF) | payer MEDICAID, SELFPAY ==
[2024-12-16 15:13] LABS: Abs Immature Grans 0.05 10^3/uL (0.0-0.06); Absolute Basophil Count 0.05 10^3/uL (0.0-0.2); Absolute Eosinophil Count 0.49 10^3/uL (0.0-0.7); Absolute Lymphocyte Count 1.58 10^3/uL (1.2-3.4); Absolute Neutrophil Count 7.78 10^3/uL (1.2-6.7); Basophils % 0.5 %; Eosinophils % 4.6 %; HCT 45.5 % (36.0-46.0); HGB 13.7 g/dL (11.2-15.7); Immature Grans % 0.5 %; Lymphocytes % 14.7 %; MCHC 30.1 % (32.0-36.0); MCV 90 fL (80-95); MPV 9.3 fL (8.0-11.0); Monocytes % 7.4 %; Neutrophils % 72.3 %; Platelet Count 307 10^3/uL (130-400); RBC 5.08 10^6/uL (3.93-5.22); RDW 15.1 % (11.7-14.6); RDW-SD 49.3 fL; WBC 10.75 10^3/uL (4.4-10.8)
[2024-12-16 16:32] LABS: COMMENT (LAB VIEW ONLY) 111.61 mg/dL; Microalb ug/mg Crea 5.8 ug/mg Cr
[2024-12-16 21:04] LABS: Anion Gap 6.9 mmol/L (3-11); BUN 16 mg/dL (7-18); CO2 30.1 mmol/L (21.0-32.0); CREATININE 1.1 mg/dL (0.55-1.02); Calcium 9.5 mg/dL (8.5-10.1); Calculated LDL 116 mg/dL (<100); Chloride 105 mmol/L (98-107); Cholesterol 189 mg/dL (<200); Estimated GFR 56.46 (mL/min/1.73m2); Ferritin 36 ng/mL (8-252); Glucose 100 mg/dL (74-106); HDL Cholesterol 52 mg/dL (40-60); Potassium 4.6 mmol/L (3.5-5.1); Sodium 142 mmol/L (136-145); Triglyceride 106 mg/dL (<150)
[2024-12-16 21:39] LABS: Iron 48 ug/dL (50-170); Total Iron Binding Capacity 352 ug/dL (250-450); Transferrin Sat 14 % (15-50)
== END 2024-12-16 20:38 | disposition home or self-care (01) ==
LOC: NCHCN 20:37
PROVIDERS: PCP Family Medicine; Visit Provider Family Medicine
DX: I10 Essential (primary) hypertension (principal); E61.1 Iron deficiency; E78.5 Hyperlipidemia, unspecified; E11.9 Type 2 diabetes mellitus without complications
CPT/HCPCS: 80048; 80061; 82043; 82570; 82728; 83540; 83550; 85025

== ENCOUNTER 2025-01-04 20:39 | Inpatient (IN) | payer MEDICAID, SELFPAY ==
[2025-01-04] VITALS (32 sets, daily range): BP systolic 100–170; BP diastolic 52–104; PULSE 103–122; RESP 5–36; TEMP 36.9; O2SAT 86–98
--- NOTE | 2025-01-04 20:30 | RT.EKG_ITS ---
APPROVED REPORT Exam: Resting ECG Reason for Exam: SOB Patient Location: E HR:112 bpm ECG Measurements Heart Rate 112 AXIS TN 181 P 60 QRSd 86 QRS 59 QT 330 T 56 QTc 451 Conclusion Sinus tachycardia...rate> [address] segment or T wave abnormalities to suggest occlusive NM
--- NOTE | 2025-01-04 20:45 | DI.RAD_ITS ---
Exam(s) XR PORTABLE CHEST AP EXAM: XR PORTABLE CHEST AP CLINICAL HISTORY: SOB, hx COPD. TECHNIQUE: 2D digital imaging was performed. COMPARISON: CR XR PORTABLE CHEST AP from 12/03/2023 FINDINGS: Single AP portable view. Heart size is upper normal. The mediastinum is not widened. Lungs are clear. No infiltrates nor obvious pleural effusions. Mild elevation left hemidiaphragm is unchanged. IMPRESSION: No acute pulmonary findings on this single AP portable view of the chest. DATA REPOSITORY: RADIATION DOSE DELIVERED:
--- NOTE | 2025-01-04 20:58 | ED.GENADUL_ITS ---
Discharge Plan Disposition Patient Disposition: Admit to [facility] Condition: Stable Discharge Details Clinical Impression: Influenza A Primary Care Provider: Sherrell Weiss ED Provider: Balbina Ayala Home Meds and New Rx's Prescriptions: New oseltamivir [Tamiflu] 75 mg capsule 75 mg PO BID 5 Days Qty: 10 0RF prednisone 50 mg tablet 50 mg PO DAILY 5 Days Qty: 5 0RF Rx Instructions: Take 1 tablet daily for the next 5 days benzonatate 100 mg capsule 100 mg PO TID PRN (Reason: cough) Qty: 14 0RF Rx Instructions: Take 1 capsule up to 3 times daily as needed for cough Continued bupropion HCl 100 mg tablet sustained-release 12 hr 100 mg PO DAILY diclofenac sodium [Arthritis Pain (diclofenac)] 1 % gel 2 g topical QID Rx Instructions: apply to single elbow, wrist or hand; for hand includes palm/fingers/back of hand methocarbamol 750 mg tablet 750 mg PO BID PRN metoprolol succinate 25 mg tablet extended release 24 hr 25 mg PO DAILY Ozempic 2 mg/dose (8 mg/3 mL) pen injector 2 mg subcut QWEEK varenicline tartrate 1 mg tablet 1 mg PO BID albuterol sulfate [Ventolin HFA] 90 mcg/actuation HFA aerosol inhaler 2 puff inhalation BID PRN Stiolto Respimat 2.5-2.5 mcg/actuation mist 2 puff inhalation DAILY Qty: 4 12RF nicotine (polacrilex) 4 mg gum 4 mg buccal Q1H Qty: 50 5RF Jardiance 10 mg tablet 10 mg PO DAILY furosemide 20 mg tablet 20 mg PO DAILY Xarelto 20 mg tablet 20 mg PO DAILY Rx Instructions: must administer with evening meal amlodipine 5 mg tablet 5 mg PO DAILY sertraline 50 mg tablet 50 mg PO DAILY atorvastatin 40 mg tablet 40 mg PO DAILY omeprazole 40 mg capsule,delayed release(DR/EC) 40 mg PO DAILY ferrous sulfate [Feosol] 325 mg (65 mg iron) tablet 324 mg PO DAILY cholecalciferol (vitamin D3) [Vitamin D3] 125 mcg (5,000 unit) tablet 5,000 unit PO DAILY multivitamin [Daily Multi-Vitamin] Tablet 1 tab PO DAILY albuterol sulfate 2.5 mg /3 mL (0.083 %) Solution For Nebulization 2.5 mg UPD Q4H PRN PRNQty: 75 0RF albuterol sulfate 90 mcg/actuation HFA aerosol inhaler 2 puff inhalation Q12H PRN PRNQty: 6.7 0RF Rx Instructions: While outside of home setting HPI General Mode of arrival: ambulatory . Date/Time Provider Initiated Documentation: 01/04/25 20:40 . Limitations to Documentation: no limitations . Information obtained by: patient, RN notes reviewed and old records reviewed . HPI Narrative: 64-year-old female presents to the ER with a chief complaint of increased shortness of breath, coughing. She reports she has been sick for approximately 1 week to a month and has not gotten better. She has not been seen prior to today. Does have a history of dyslipidemia or hypertension DVT, she is on Xarelto, other past medical history includes daily smoker. She also has a history of a AAA which she is followed by [facility], she reports that she is due to be seen again in 2 months and they will repair the AAA after 1 month of her not smoking and losing weight. She denies any chest pain or abdominal pain no nausea vomiting diarrhea. On exam she does have tripoding, speaking in full sentences, she does have diminished right lung sounds, scattered wheezes on the left.. She is satting 89 to 90% on room air. Related Data Home Medications ?Medication ?Instructions ?Recorded ?Confirmed amlodipine 5 mg tablet 5 mg PO DAILY 12/03/23 01/04/25 atorvastatin 40 mg tablet 40 mg PO DAILY 12/03/23 01/04/25 cholecalciferol (vitamin D3) 125 5,000 unit PO DAILY 12/03/23 01/04/25 mcg (5,000 unit) tablet (Vitamin D3) ferrous sulfate 325 mg (65 mg 324 mg PO DAILY 12/03/23 01/04/25 iron) tablet (Feosol) multivitamin (Daily Multi-Vitamin 1 tab PO DAILY 12/03/23 01/04/25 tablet) omeprazole 40 mg capsule,delayed 40 mg PO DAILY 12/03/23 01/04/25 release rivaroxaban 20 mg tablet (Xarelto) 20 mg PO DAILY 12/03/23 01/04/25 sertraline 50 mg tablet 50 mg PO DAILY 12/03/23 01/04/25 albuterol sulfate 2.5 mg/3 mL 2.5 mg (3 mL) UPD Q4H PRN PRN #75 12/05/23 01/04/25 (0.083 %) solution for nebulization mL albuterol sulfate 90 mcg/actuation 2 puff inhalation Q12H PRN PRN 12/05/23 01/04/25 aerosol inhaler #6.7 grams nicotine (polacrilex) 4 mg gum 4 mg buccal Q1H #50 ea 12/22/23 01/04/25 tiotropium 2.5 mcg-olodaterol 2.5 2 puff inhalation DAILY #4 grams 12/22/23 01/04/25 mcg/actuation mist for inhalation (Stiolto Respimat) empagliflozin 10 mg tablet 10 mg PO DAILY 12/20/24 01/04/25 (Jardiance) furosemide 20 mg tablet 20 mg PO DAILY 12/20/24 01/04/25 albuterol sulfate 90 mcg/actuation 2 puff inhalation BID PRN 12/22/24 01/04/25 aerosol inhaler (Ventolin HFA) bupropion HCl 100 mg tablet,12 hr 100 mg PO DAILY 12/22/24 01/04/25 sustained-release diclofenac sodium 1 % topical gel 2 g topical QID 12/22/24 01/04/25 (Arthritis Pain (diclofenac)) methocarbamol 750 mg tablet 750 mg PO BID PRN 12/22/24 01/04/25 metoprolol succinate 25 mg 25 mg PO DAILY 12/22/24 01/04/25 tablet,extended release 24 hr semaglutide 2 mg/dose (8 mg/3 mL) 2 mg subcut QWEEK 12/22/24 01/04/25 subcutaneous pen injector (Ozempic) varenicline tartrate 1 mg tablet 1 mg PO BID 12/22/24 01/04/25 benzonatate 100 mg capsule 100 mg PO TID PRN cough #14 caps 01/04/25 oseltamivir 75 mg capsule (Tamiflu) 75 mg PO BID 5 days #10 caps 01/04/25 prednisone 50 mg tablet 50 mg PO DAILY Inflammation 5 days 01/04/25 #5 tabs Previous Rx's ?Medication ?Instructions ?Recorded albuterol sulfate 2.5 mg/3 mL 2.5 mg (3 mL) UPD Q4H PRN PRN #75 12/05/23 (0.083 %) solution for nebulization mL albuterol sulfate 90 mcg/actuation 2 puff inhalation Q12H PRN PRN 12/05/23 aerosol inhaler #6.7 grams nicotine (polacrilex) 4 mg gum 4 mg buccal Q1H #50 ea 12/22/23 tiotropium 2.5 mcg-olodaterol 2.5 2 puff inhalation DAILY #4 grams 12/22/23 mcg/actuation mist for inhalation (Stiolto Respimat) benzonatate 100 mg capsule 100 mg PO TID PRN cough #14 caps 01/04/25 oseltamivir 75 mg capsule (Tamiflu) 75 mg PO BID 5 days #10 caps 01/04/25 prednisone 50 mg tablet 50 mg PO DAILY Inflammation 5 days 01/04/25 #5 tabs General Stated Complaint: RespSymp EMETERIO: 3 Review of Systems All systems reviewed & are unremarkable except as noted in HPI and below Constitutional Constitutional: Denies body ache(s) and Denies fever(s) Cardiovascular Cardiovascular: Reports chest pain, Denies chest pain at rest, Denies leg edema, Denies radiating jaw, neck or arm pain, Reports dyspnea and Reports dyspnea on exertion Respiratory Respiratory: Reports as per HPI, Reports cough, Reports excessive phlegm produc tion (Reports clear and white), Reports pain with cough, Reports dyspnea and Reports dyspnea on exertion Exam Narrative Exam Narrative: Constitutional: Alert and oriented x3. Appears stated age. Normal body habitus. Head: Normocephalic, no trauma. Eyes: Pupils PERRL, Red reflex noted, EOM's intact. Eyelids symmetrical without lesions, discharge, or swelling. ENT: Bilateral TM's WNL, External ear normal to inspection, no mastoid TTP, swelling, or erythema, Nasal turbinates WNL, no nasal discharge. Normal d entition, Posterior pharynx WNL, no exudate. Chest: Tachycardic heart rate 116 upon arrival, normal S1, S2, distal pulses intact. Resp: Diminished lung sounds on the right, scattered wheezes on the left. Abdomen: Soft, non-distended, Normoactive bowel sounds all 4 quads. Musculoskeletal: Normal gait, Moves all 4 extremities without difficulty. Skin: No suspicious rashes or lesions. Capillary refill less than 2 sec. Neurologic: Cranial nerves II-XII intact. Alert and oriented x 3. Motor: No deficits noted. Sensory: Intact bilaterally all 4 extremities. Hematologic/Lymphatic: No ecchymosis, no lymphadenopathy. Course Vital Signs Vital signs: Vital Signs Temperature 36.9 C 01/04/25 20:41 Pulse 122 H 01/04/25 20:41 Respiratory Rate 22 01/04/25 20:41 Blood Pressure 170/100 H 01/04/25 20:41 Pulse Oximetry 88 L 01/04/25 20:41 Temperature 36.9 C 01/04/25 20:44 Pulse 122 H 01/04/25 20:44 Respiratory Rate 22 01/04/25 20:44 Respiratory Effort Short of Breath 01/04/25 20:53 Blood Pressure 170/100 H 01/04/25 20:44 Pulse Oximetry 88 L 01/04/25 20:44 Oxygen Delivery Method Room Air 01/04/25 20:44 Oxygen Flow Rate 0 01/04/25 20:44 Pain Level 0 01/04/25 20:44 Medical Decision Making 64-year-old female presents to the ER with a chief complaint of increased shortness of breath, coughing. She reports she has been sick for approximately 1 week to a month and has not gotten better. She has not been seen prior to today. Does have a history of dyslipidemia or hypertension DVT, she is on Xarelto, other past medical history includes daily smoker. She also has a history of a AAA which she is followed by [facility], she reports that she is due to be seen again in 2 months and they will repair the AAA after 1 month of her not smoking and losing weight. She denies any chest pain or abdominal pain no nausea vomiting diarrhea. On exam she does have tripoding, speaking in full sentences, she does have diminished right lung sounds, scattered wheezes on the left.. She is satting 89 to 90% on room air. Workup ordered including EKG, Fluvid swab, chest x-ray, CBC CMP serial troponins proBNP DuoNeb and 125 mg Solu-Medrol IV. Patient is testing positive for influenza A, she did receive a DuoNeb and 125 Solu-Medrol, nurses had placed her on 2 L nasal cannula she was satting 94%. Room air trial done at this time. Patient is lying down. She is satting 89 to 90% on room air. Will give an additional DuoNeb. Chest x-ray is negative for any pneumonia, negative serial troponins x 2, no leukocytosis rest of the labs are largely unremarkable, proBNP within normal limits. VBG also within normal limits. Patient desatted to 87% room air at rest, placed back on 2 L nasal cannula by ED staff. Patient has received 2 nebs satting 90% @ 2L. Will speak with hospitalist. 2256: Spoke with Dr. Syed, he agrees to come and evaluate the patient in the emergency department. 2315: Dr. Syed here at bedside for patient evaluation. Patient to be admitted, is awaiting bed placement at this time. This text was generated using [employer] system, please disregard any oddities of phrase or misspellings. Medical Records Medical records reviewed: Yes I reviewed the patient's medical records. Imaging Data Radiologic Study: Imaging: X-Ray Radiologist's impression: TECHNIQUE: Imaging protocol: Radiologic exam of the chest. Views: 1 view. COM PARISON: CT THORAX ABD/PEL CTA 10/11/2024 7:59 PM FINDINGS: Lungs: Linear bibasilar opacities most consistent with subsegmental atelectasis. No consolidation. Pleural spaces: Unremarkable. No pleural effusion. No pneumothorax. Heart/Mediastinum: Unremarkable. No cardiomegaly. Bones/joints: Shoulder stabilizer on the left. IMPRESSION: No acute findings. Thank you for allowing us to participate in the care of your patient. Dictated and Authenticated by: Vidya Bass MD Lab Data Lab results reviewed: Yes I reviewed the patient's lab results. Labs: Laboratory Tests Range/Units 01/04/25 01/04/25 01/04/25 21:00 21:12 22:00 WBC (4.4-10.8) 10^3/uL 8.03 RBC (3.93-5.22) 10^6/uL 5.52 H Hgb (11.2-15.7) g/dL 14.8 Hct (36.0-46.0) % 48.6 H MCV (80-95) fL 88 MCH (27.0-33.0) pg 26.8 L MCHC (32.0-36.0) % 30.5 L RDW (11.7-14.6) % 15.7 H Plt Count (130-400) 10^3/uL 239 MPV (8.0-11.0) fL 8.7 Immature Gran % % 0.4 Neutrophils % % 65.3 Lymphocytes % % 20.5 Monocytes % % 9.0 Eosinophils % % 4.4 Basophils % % 0.4 Nucleated RBC % (0.0-0.3) % 0.0 Absolute Neutrophils (1.2-6.7) 10^3/uL 5.25 Absolute Lymphocytes (1.2-3.4) 10^3/uL 1.65 Absolute Monocytes (0.1-0.8) 10^3/uL 0.72 Absolute Eosinophils (0.0-0.7) 10^3/uL 0.35 Absolute Basophils (0.0-0.2) 10^3/uL 0.03 VBG pH (7.31-7.41) 7.36 VBG pCO2 (41-51) mmHg 49 VBG pO2 mmHg 45 VBG HCO3 (23-28) mmol/L 28 VBG Total CO2 (24-29) mmol/L 25 VBG O2 Saturation % 81 VBG Base Excess (-2-3) mmol/L 3 Sodium (136-145) mmol/L 139 Potassium (3.5-5.1) mmol/L 4.1 Chloride (98-107) mmol/L 103 Carbon Dioxide (21.0-32.0) mmol/L 30.4 Anion Gap (3-11) mmol/L 5.6 BUN (7-18) mg/dL 16 Creatinine (0.55-1.02) mg/dL 1.0 Est GFR (CKD-EPI 2020) (mL/min/1.73m2) 63.30 Glucose (74-106) mg/dL 104 Calcium (8.5-10.1) mg/dL 9.4 Total Bilirubin (0.2-1.0) mg/dL 0.31 AST (15-37) U/L 19 ALT (14-59) U/L 42 Alkaline Phosphatase (46-116) U/L 104 Troponin I (<or=51) ng/L 7 5 NT-Pro-B Natriuret Pep (<300) pg/mL 26 Total Protein (6.4-8.2) g/dL 7.6 Albumin (3.4-5.0) g/dL 3.4 COVID-19 Source Nasopharynx SARS-CoV-2 (PCR) (Negative) Negative Influenza Type A (PCR) (Negative) Positive A Influenza Type B (PCR) (Negative) Negative RSV (PCR) (Negative) Negative Range/Units 01/04/25 23:53 WBC (4.4-10.8) 10^3/uL RBC (3.93-5.22) 10^6/uL Hgb (11.2-15.7) g/dL Hct (36.0-46.0) % MCV (80-95) fL MCH (27.0-33.0) pg MCHC (32.0-36.0) % RDW (11.7-14.6) % Plt Count (130-400) 10^3/uL MPV (8.0-11.0) fL Immature Gran % % Neutrophils % % Lymphocytes % % Monocytes % % Eosinophils % % Basophils % % Nucleated RBC % (0.0-0.3) % Absolute Neutrophils (1.2-6.7) 10^3/uL Absolute Lymphocytes (1.2-3.4) 10^3/uL Absolute Monocytes (0.1-0.8) 10^3/uL Absolute Eosinophils (0.0-0.7) 10^3/uL Absolute Basophils (0.0-0.2) 10^3/uL VBG pH (7.31-7.41) VBG pCO2 (41-51) mmHg VBG pO2 mmHg VBG HCO3 (23-28) mmol/L VBG Total CO2 (24-29) mmol/L VBG O2 Saturation % VBG Base Excess (-2-3) mmol/L Sodium (136-145) mmol/L Potassium (3.5-5.1) mmol/L Chloride (98-107) mmol/L Carbon Dioxide (21.0-32.0) mmol/L Anion Gap (3-11) mmol/L BUN (7-18) mg/dL Creatinine (0.55-1.02) mg/dL Est GFR (CKD-EPI 2020) (mL/min/1.73m2) Glucose (74-106) mg/dL Calcium (8.5-10.1) mg/dL Total Bilirubin (0.2-1.0) mg/dL AST (15-37) U/L ALT (14-59) U/L Alkaline Phosphatase (46-116) U/L Troponin I (<or=51) ng/L Cancelled NT-Pro-B Natriuret Pep (<300) pg/mL Total Protein (6.4-8.2) g/dL Albumin (3.4-5.0) g/dL COVID-19 Source SARS-CoV-2 (PCR) (Negative) Influenza Type A (PCR) (Negative) Influenza Type B (PCR) (Negative) RSV (PCR) (Negative) Quality:SDOH Health Related Social Needs: No Data to Display PFSH All Active Problems Influenza A (Acute) COPD (chronic obstructive pulmonary disease) (Chronic) Nicotine dependence, cigarettes, uncomplicated (Acute) Pulmonary nodule (Acute) LISA (obstructive sleep apnea) (Chronic) Acute hypoxic respiratory failure (Acute) Continuous tobacco abuse (Acute) Medical History Dyslipidemia Hypertension History of DVT (deep vein thrombosis) Social History Smoking/Tobacco Use Status: Current every day Tobacco Type: cigarettes and e-cigarettes Smoking risk assessment performed?: Yes Alcohol Intake: former Drug use: Rarely Substance use type: marijuana Housing: apartment Do you feel safe at home: Yes Do you feel safe in your relationship?: Yes
[2025-01-04 21:17] LABS: Abs Immature Grans 0.03 10^3/uL (0.0-0.06); Absolute Basophil Count 0.03 10^3/uL (0.0-0.2); Absolute Eosinophil Count 0.35 10^3/uL (0.0-0.7); Absolute Lymphocyte Count 1.65 10^3/uL (1.2-3.4); Absolute Monocyte Count 0.72 10^3/uL (0.1-0.8); Absolute Neutrophil Count 5.25 10^3/uL (1.2-6.7); BE (Venous) 3 mmol/L (-2-3); Basophils % 0.4 %; Eosinophils % 4.4 %; HCO3 (Venous) 28 mmol/L (23-28); HCT 48.6 % (36.0-46.0); HGB 14.8 g/dL (11.2-15.7); Immature Grans % 0.4 %; Lymphocytes % 20.5 %; MCH 26.8 pg (27.0-33.0); MCHC 30.5 % (32.0-36.0); MCV 88 fL (80-95); MPV 8.7 fL (8.0-11.0); Neutrophils % 65.3 %; O2 Sat (Venous) 81 %; Platelet Count 239 10^3/uL (130-400); RBC 5.52 10^6/uL (3.93-5.22); RDW 15.7 % (11.7-14.6); RDW-SD 50.9 fL; TCO2 (Venous) 25 mmol/L (24-29); WBC 8.03 10^3/uL (4.4-10.8); pCO2 (Venous) 49 mmHg (41-51); pH (Venous) 7.36 (7.31-7.41); pO2 (Venous) 45 mmHg
[2025-01-04] MEDS: Albuterol/Ipratropium 3 ML UPD VIAL UPD ×2 (21:21→22:49)
[2025-01-04] MEDS: methylPREDNISolone SUCC 125 MG VIAL IVP (21:22)
[2025-01-04] MEDS: Nicotine 4 MG GUM CH (21:28)
[2025-01-04 21:45] LABS: ALT 42 U/L (14-59); AST 19 U/L (15-37); Albumin 3.4 g/dL (3.4-5.0); Alkaline Phosphatase 104 U/L (46-116); Anion Gap 5.6 mmol/L (3-11); BUN 16 mg/dL (7-18); Bilirubin, Total 0.31 mg/dL (0.2-1.0); CO2 30.4 mmol/L (21.0-32.0); Calcium 9.4 mg/dL (8.5-10.1); Chloride 103 mmol/L (98-107); Glucose 104 mg/dL (74-106); NT-proBNP 26 pg/mL (<300); Potassium 4.1 mmol/L (3.5-5.1); Sodium 139 mmol/L (136-145); Total Protein 7.6 g/dL (6.4-8.2); Troponin I 7 ng/L (<or=51)
--- NOTE | 2025-01-04 21:46 | DI.VRAD_ITS ---
PROCEDURE INFORMATION: Exam: XR Chest Exam date and time: 01/04/2025 9:15 PM Age: 64 years old Clinical indication: Shortness of breath; SOB, HX copd TECHNIQUE: Imaging protocol: Radiologic exam of the chest. Views: 1 view. COMPARISON: CT THORAX ABD/PEL CTA 10/11/2024 7:59 PM FINDINGS: Lungs: Linear bibasilar opacities most consistent with subsegmental atelectasis. No consolidation. Pleural spaces: Unremarkable. No pleural effusion. No pneumothorax. Heart/Mediastinum: Unremarkable. No cardiomegaly. Bones/joints: Shoulder stabilizer on the left. IMPRESSION: No acute findings. Dictated and Authenticated by: Vidya Bass MD. Orderin Jamie Mortensen MD
[2025-01-04 21:52] LABS: COVID-19 PCR Negative (Negative); Influenza A PCR Positive (Negative); Influenza B PCR Negative (Negative); RSV PCR Negative (Negative)
[2025-01-04 21:54] LABS: Source Nasopharynx
[2025-01-04 22:20] LABS: Troponin I 5 ng/L (<or=51)
[2025-01-04] MEDS: Oseltamivir 75 MG CAP PO (22:49)
--- NOTE | 2025-01-04 23:16 | HPE_ITS ---
Date of service: 01/04/25 Time of Service: 23:16 Assessment and Plan Assessment and plan (1) Influenza A: Status: Acute Assessment and plan: Influenza/COPD exacerbation. No signs pneumonia. Will continue Tamiflu, updrafts and steroids. Will give nicotine TD replacement. Usual meds as is otherwise. History of Present Illness History of Present Illness Chief Complaint: cough, SOB Narrative: 64 female with COPD, continues to smoke -- here with one week of cough and SOB. In ER findings of note for sats in 80s, wheezing and +flu. CXR negative. patient treated with Tamiflu, Duonebs and steroids but continues to have an oxygen requirement of 2L to maintain sats above 90. I was asked to evaluate for admission. Patient states she feels somewhat better but not to baseline. She did have a flu shot. She continues to smoke 1/4 PPD, as well as vaping 15-20 times per day. Review of Systems Narrative: per HPI PFSH All Active Problems Influenza A (Acute) COPD (chronic obstructive pulmonary disease) (Chronic) Nicotine dependence, cigarettes, uncomplicated (Acute) Pulmonary nodule (Acute) LISA (obstructive sleep apnea) (Chronic) Acute hypoxic respiratory failure (Acute) Continuous tobacco abuse (Acute) Medical History Dyslipidemia Hypertension History of DVT (deep vein thrombosis) Social History Smoking/Tobacco Use Status: Current every day Tobacco Type: cigarettes and e- cigarettes Smoking risk assessment performed?: Yes Alcohol Intake: former Drug use: Rarely Substance use type: marijuana Housing: apartment Do you feel safe at home: Yes Do you feel safe in your relationship?: Yes Meds Allergies and Home Medications Home Medications ?Medication ?Instructions ?Recorded ?Confirmed ?Type amlodipine 5 mg tablet 5 mg PO DAILY 12/03/23 01/04/25 History atorvastatin 40 mg tablet 40 mg PO DAILY 12/03/23 01/04/25 History cholecalciferol (vitamin D3) 125 5,000 unit PO DAILY 12/03/23 01/04/25 History mcg (5,000 unit) tablet (Vitamin D3) ferrous sulfate 325 mg (65 mg 324 mg PO DAILY 12/03/23 01/04/25 History iron) tablet (Feosol) multivitamin (Daily Multi-Vitamin 1 tab PO DAILY 12/03/23 01/04/25 History tablet) omeprazole 40 mg capsule,delayed 40 mg PO DAILY 12/03/23 01/04/25 History release rivaroxaban 20 mg tablet (Xarelto) 20 mg PO DAILY 12/03/23 01/04/25 History sertraline 50 mg tablet 50 mg PO DAILY 12/03/23 01/04/25 History albuterol sulfate 2.5 mg/3 mL 2.5 mg (3 mL) UPD Q4H PRN PRN #75 12/05/23 01/04/25 Rx (0.083 %) solution for nebulization mL albuterol sulfate 90 mcg/actuation 2 puff inhalation Q12H PRN PRN 12/05/23 01/04/25 Rx aerosol inhaler #6.7 grams nicotine (polacrilex) 4 mg gum 4 mg buccal Q1H #50 ea 12/22/23 01/04/25 Rx tiotropium 2.5 mcg-olodaterol 2.5 2 puff inhalation DAILY #4 grams 12/22/23 01/04/25 Rx mcg/actuation mist for inhalation (Stiolto Respimat) empagliflozin 10 mg tablet 10 mg PO DAILY 12/20/24 01/04/25 History (Jardiance) furosemide 20 mg tablet 20 mg PO DAILY 12/20/24 01/04/25 History albuterol sulfate 90 mcg/actuation 2 puff inhalation BID PRN 12/22/24 01/04/25 History aerosol inhaler (Ventolin HFA) bupropion HCl 100 mg tablet,12 hr 100 mg PO DAILY 12/22/24 01/04/25 History sustained-release diclofenac sodium 1 % topical gel 2 g topical QID 12/22/24 01/04/25 History (Arthritis Pain (diclofenac)) methocarbamol 750 mg tablet 750 mg PO BID PRN 12/22/24 01/04/25 History metoprolol succinate 25 mg 25 mg PO DAILY 12/22/24 01/04/25 History tablet,extended release 24 hr semaglutide 2 mg/dose (8 mg/3 mL) 2 mg subcut QWEEK 12/22/24 01/04/25 History subcutaneous pen injector (Ozempic) varenicline tartrate 1 mg tablet 1 mg PO BID 12/22/24 01/04/25 History benzonatate 100 mg capsule 100 mg PO TID PRN cough #14 caps 01/04/25 Rx oseltamivir 75 mg capsule (Tamiflu) 75 mg PO BID 5 days #10 caps 01/04/25 Rx prednisone 50 mg tablet 50 mg PO DAILY Inflammation 5 days 01/04/25 Rx #5 tabs Exam Narrative Exam Narrative: 136/93, 114, 36.9, 25, 89% RA (91-92 on 2L during visit). HEENT atraumatic; neck supple; lungs fair-good air movement, diffuse wheeze; heart tachy/regular; abdomen soft and NT; extremities w/o edema; neuro Ox3, lucid. moves all 4s Results Labs 01/04/25 21:12 01/04/25 21:12 Labs: Laboratory Results - last 24 hr 01/04/25 01/04/25 01/04/25 21:00 21:12 22:00 WBC 8.03 RBC 5.52 H Hgb 14.8 Hct 48.6 H MCV 88 MCH 26.8 L MCHC 30.5 L RDW 15.7 H Plt Count 239 MPV 8.7 Immature Gran % 0.4 Neutrophils % 65.3 Lymphocytes % 20.5 Monocytes % 9.0 Eosinophils % 4.4 Basophils % 0.4 Nucleated RBC % 0.0 Absolute Neutrophils 5.25 Absolute Lymphocytes 1.65 Absolute Monocytes 0.72 Absolute Eosinophils 0.35 Absolute Basophils 0.03 VBG pH 7.36 VBG pCO2 49 VBG pO2 45 VBG HCO3 28 VBG Total CO2 25 VBG O2 Saturation 81 VBG Base Excess 3 Sodium 139 Potassium 4.1 Chloride 103 Carbon Dioxide 30.4 Anion Gap 5.6 BUN 16 Creatinine 1.0 Est GFR (CKD-EPI 2020) 63.30 Glucose 104 Calcium 9.4 Total Bilirubin 0.31 AST 19 ALT 42 Alkaline Phosphatase 104 Troponin I 7 5 NT-Pro-B Natriuret Pep 26 Total Protein 7.6 Albumin 3.4 COVID-19 Source Nasopharynx SARS-CoV-2 (PCR) Negative Influenza Type A (PCR) Positive A Influenza Type B (PCR) Negative RSV (PCR) Negative 01/04/25 23:53 WBC RBC Hgb Hct MCV MCH MCHC RDW Plt Count MPV Immature Gran % Neutrophils % Lymphocytes % Monocytes % Eosinophils % Basophils % Nucleated RBC % Absolute Neutrophils Absolute Lymphocytes Absolute Monocytes Absolute Eosinophils Absolute Basophils VBG pH VBG pCO2 VBG pO2 VBG HCO3 VBG Total CO2 VBG O2 Saturation VBG Base Excess Sodium Potassium Chloride Carbon Dioxide Anion Gap BUN Creatinine Est GFR (CKD-EPI 2020) Glucose Calcium Total Bilirubin AST ALT Alkaline Phosphatase Troponin I Cancelled NT-Pro-B Natriuret Pep Total Protein Albumin COVID-19 Source SARS-CoV-2 (PCR) Influenza Type A (PCR) Influenza Type B (PCR) RSV (PCR) Last Vital Signs Temp 36.9 C 01/04/25 20:44 Pulse 114 H 01/04/25 21:40 Resp 25 H 01/04/25 21:40 BP 136/93 H 01/04/25 21:31 Pulse Ox 89 L 01/04/25 21:40 Time Spent Time spent with Patient: 40-54 minutes Time was spent: preparing to see the patient(eg.review tests), obtaining and/or reviewing separately otained hiistory, ordering medications,tests, procedures, referring, communicating with other health ambulatory care nurse and indepentently interpreting results
[2025-01-05] VITALS (11 sets, daily range): BP systolic 109–149; BP diastolic 65–85; PULSE 102–128; RESP 2–20; TEMP 36.3–37.1; O2SAT 88–95
--- NOTE | 2025-01-05 01:11 | W.PC.ACHO ---
Registration Status: Primary Language: Preferred Language: ED Information & Data Chief Complaint RespSymp 01/04/25 21:02 Triage Note sick for ~ 1 week, has lung 01/04/25 20:41 hx, has cardiac hx. today increased SOB, coughing, no fevers. Medical / Surgical History (Last Reviewed 01/04/25 @ 23:21 by Jason Syed MD) Dyslipidemia Hypertension History of DVT (deep vein thrombosis) Most Recent Vital Signs Temperature 36.9 C 01/04/25 20:44 Pulse 115 H 01/04/25 23:50 Pulse 115 H 01/04/25 23:50 Respiratory Rate 15 01/04/25 23:50 Respiratory Effort Short of Breath 01/04/25 20:53 Blood Pressure 148/74 H 01/04/25 23:46 Blood Pressure Mean 102 01/04/25 23:46 Pulse Oximetry 93 01/04/25 23:50 Oxygen Delivery Method Nasal Cannula 01/04/25 21:21 Oxygen Flow Rate 2 01/04/25 21:21 Pain Level 0 01/04/25 20:44 IV IV Catheter Type [Right Saline Lock Antecubital] IV Catheter Gauge [Right 18 Antecubital] Diet Orders Category Date Time Status Regular/Normal [DIET] Nutrition 01/05/25 Breakfast Active Diagnostics 01/04/25 01/04/25 01/04/25 Range/Units 23:53 22:00 21:12 WBC 8.03 (4.4-10.8) 10^3/uL RBC 5.52 H (3.93-5.22) 10^6/uL Hgb 14.8 (11.2-15.7) g/dL Hct 48.6 H (36.0-46.0) % MCV 88 (80-95) fL MCH 26.8 L (27.0-33.0) pg MCHC 30.5 L (32.0-36.0) % RDW 15.7 H (11.7-14.6) % Plt Count 239 (130-400) 10^3/uL MPV 8.7 (8.0-11.0) fL Immature Gran % 0.4 % Neutrophils % 65.3 % Lymphocytes % 20.5 % Monocytes % 9.0 % Eosinophils % 4.4 % Basophils % 0.4 % Nucleated RBC % 0.0 (0.0-0.3) % Absolute Neutrophils 5.25 (1.2-6.7) 10^3/uL Absolute Lymphocytes 1.65 (1.2-3.4) 10^3/uL Absolute Monocytes 0.72 (0.1-0.8) 10^3/uL Absolute Eosinophils 0.35 (0.0-0.7) 10^3/uL Absolute Basophils 0.03 (0.0-0.2) 10^3/uL VBG pH 7.36 (7.31-7.41) VBG pCO2 49 (41-51) mmHg VBG pO2 45 mmHg VBG HCO3 28 (23-28) mmol/L VBG Total CO2 25 (24-29) mmol/L VBG O2 Saturation 81 % VBG Base Excess 3 (-2-3) mmol/L Sodium 139 (136-145) mmol/L Potassium 4.1 (3.5-5.1) mmol/L Chloride 103 (98-107) mmol/L Carbon Dioxide 30.4 (21.0-32.0) mmol/L Anion Gap 5.6 (3-11) mmol/L BUN 16 (7-18) mg/dL Creatinine 1.0 (0.55-1.02) mg/dL Est GFR (CKD-EPI 2020) 63.30 (mL/min/1.73m2) Glucose 104 (74-106) mg/dL Calcium 9.4 (8.5-10.1) mg/dL Total Bilirubin 0.31 (0.2-1.0) mg/dL AST 19 (15-37) U/L ALT 42 (14-59) U/L Alkaline Phosphatase 104 (46-116) U/L Troponin I Cancelled 5 7 (<or=51) ng/L NT-Pro-B Natriuret Pep 26 (<300) pg/mL Total Protein 7.6 (6.4-8.2) g/dL Albumin 3.4 (3.4-5.0) g/dL COVID-19 Source SARS-CoV-2 (PCR) (Negative) Influenza Type A (PCR) (Negative) Influenza Type B (PCR) (Negative) RSV (PCR) (Negative) 01/04/25 Range/Units 21:00 WBC (4.4-10.8) 10^3/uL RBC (3.93-5.22) 10^6/uL Hgb (11.2-15.7) g/dL Hct (36.0-46.0) % MCV (80-95) fL MCH (27.0-33.0) pg MCHC (32.0-36.0) % RDW (11.7-14.6) % Plt Count (130-400) 10^3/uL MPV (8.0-11.0) fL Immature Gran % % Neutrophils % % Lymphocytes % % Monocytes % % Eosinophils % % Basophils % % Nucleated RBC % (0.0-0.3) % Absolute Neutrophils (1.2-6.7) 10^3/uL Absolute Lymphocytes (1.2-3.4) 10^3/uL Absolute Monocytes (0.1-0.8) 10^3/uL Absolute Eosinophils (0.0-0.7) 10^3/uL Absolute Basophils (0.0-0.2) 10^3/uL VBG pH (7.31-7.41) VBG pCO2 (41-51) mmHg VBG pO2 mmHg VBG HCO3 (23-28) mmol/L VBG Total CO2 (24-29) mmol/L VBG O2 Saturation % VBG Base Excess (-2-3) mmol/L Sodium (136-145) mmol/L Potassium (3.5-5.1) mmol/L Chloride (98-107) mmol/L Carbon Dioxide (21.0-32.0) mmol/L Anion Gap (3-11) mmol/L BUN (7-18) mg/dL Creatinine (0.55-1.02) mg/dL Est GFR (CKD-EPI 2020) (mL/min/1.73m2) Glucose (74-106) mg/dL Calcium (8.5-10.1) mg/dL Total Bilirubin (0.2-1.0) mg/dL AST (15-37) U/L ALT (14-59) U/L Alkaline Phosphatase (46-116) U/L Troponin I (<or=51) ng/L NT-Pro-B Natriuret Pep (<300) pg/mL Total Protein (6.4-8.2) g/dL Albumin (3.4-5.0) g/dL COVID-19 Source Nasopharynx SARS-CoV-2 (PCR) Negative (Negative) Influenza Type A (PCR) Positive A (Negative) Influenza Type B (PCR) Negative (Negative) RSV (PCR) Negative (Negative) Intake and Output - 24 Hour Total 01/04/25 20:39 thru 01/04/25 20:41 Weight 92.986 kg Falls Risk Assessment History of Falls No History 01/04/25 20:58 Contributing Factors No Factors 01/04/25 20:58 Ambulatory Aids Independent 01/04/25 20:58 Tubes/Lines None 01/04/25 20:58 Gait Evaluation W/no contributing factors 01/04/25 20:58 Cognition No cognitive impairment 01/04/25 20:58 Fall Total Score 10 01/04/25 20:58 Level of Risk Standard/Low Risk 01/04/25 20:58 Problems (Last Reviewed 01/04/25 @ 23:21 by Jason Syed MD) Influenza A (Acute) v v v v v v v v v Sending and/or Receiving Nurses: Please use comment section below to note any information pertinent to the patient hand-off not included above. Information / Comments: Report received from: received report from Danay, patient is AAO x 4. has been sick x 1 week, tested positive for flu A. she is on 2L NC and 02 saturation is 92%. she has been tachycardic while in ER. Pt ambulates independently. Pt has a hx of AAA, COPD, HTN, hypoxia, respiratory failure. will await patient arrival to the floor. Laurence Kirk RN
[2025-01-05] MEDS: Cyclobenzaprine 10 MG TAB PO ×3 (02:29→17:13)
[2025-01-05] MEDS: methylPREDNISolone SUCC 40 MG VIAL IVP ×2 (06:12→14:26)
[2025-01-05] MEDS: Normal Saline Flush 10 ML SYR IVP ×2 (06:12→08:47)
[2025-01-05] MEDS: Tiotropium/Olodaterol 10 PUFF INHALER 2 PUFF IH (07:58)
[2025-01-05] MEDS: Nicotine 21 MG/24 HR PATCH TD (08:47)
[2025-01-05] MEDS: Omeprazole 20 MG CAPCR 40 MG PO (08:48)
[2025-01-05] MEDS: Furosemide 20 MG TAB PO (08:48)
[2025-01-05] MEDS: Ferrous Sulfate 325 MG TAB PO (08:48)
[2025-01-05] MEDS: Cholecalciferol (Vitamin D3) 1,000 UNIT TAB 5000 UNITS PO (08:48)
[2025-01-05] MEDS: Metoprolol CR 25 MG TABCR PO (08:48)
[2025-01-05] MEDS: amLODIPine 5 MG TAB PO (08:49)
[2025-01-05] MEDS: Sertraline 50 MG TAB PO (08:49)
[2025-01-05] MEDS: Multivitamin TAB 1 TAB PO (08:49)
[2025-01-05] MEDS: Empaglifozin 10 MG TAB PO (08:50)
[2025-01-05] MEDS: Varenicline 1 MG TAB PO ×2 (08:50→20:33)
[2025-01-05] MEDS: Oseltamivir 75 MG CAP PO ×2 (08:50→20:33)
[2025-01-05] MEDS: buPROPion-CR 100 MG TABCR PO (09:47)
[2025-01-05] MEDS: Diclofenac 1% Gel 100 GM TUBE TP ×2 (09:47→17:12)
[2025-01-05] MEDS: Albuterol/Ipratropium 3 ML UPD VIAL UPD ×2 (12:21→17:34)
--- NOTE | 2025-01-05 15:44 | INITIAL_ITS ---
Date of service: 01/05/25 Time of Service: 13:30 Care Management Initial Assmt Initial Assessment Reason for Hospitalization: Flu A/COPD exacerbation Functional Status/Living Situation Patient Presentation: Sera drove herself to the ED last night due to c/o cough and SOB x 1 week. She was found to have flu A. She did require some O2, but is presently on RA. Sera was sitting up on the edge of the bed when CM met with her today. She was very pleasant, and easy to talk with. Sera stated that she is feeling a little bit better, and is likely going to be discharged tomorrow. Sera moved from [place] 2 years ago, and now lives with her sister in [facility]. Town of Residence: [facility] Resides with: Other (sister, Almita) Significant Other/Family: Out of area (Daughter, Marlen and son, Rishabh live in [place]. 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: N 02/03/24 14:23 Date Asked 01/04/25 01/04/25 20:46 AD Date Reviewed COLST On File at [facility] COLST Date Scanned Code Status Resuscitation Status Full Code Insurance Coverage/Financial Issues Insurance: Medicaid Care Team Visit Care Team Role Provider Type Sherrell Weiss Primary Care Provider NON-[facility] STAFF PHYSICIAN Balbina Ayala NP Emergency Provider NURSE PRACTITIONER Yue Naik NP Attending Provider [facility] STAFF PHYSICIAN Jason Syed MD Admit Provider [facility] STAFF PHYSICIAN Discharge Potential Discharge Needs: PCP F/U Appt (Has a pulmonary f/u scheduled for 06/21) Anticipated Barriers to Discharge: None Identified Patient/Family Education Needs: Review discharge instructions, discuss Ask Me Three Transportation: Private vehicle Plan: Anticipate that Sera will be discharged home tomorrow with no new services. She will f/u with her PCP and her plan of care. Sera will transport home in a private vehicle. CM will continue to follow. Social Determinants of Health Screening Social Determinants of Health last assessed: 01/05/25 Will the Patient Participate in the Screening?: Yes Do you worry about having a steady place to live?: no Problems where you live: no known problems In the past 12 months, have you had to go without electric, gas, oil or water in your home?: no Have you or anyone in your house had to go without enough food to eat?: no Has lack of transportation kept you from medical appointments or from doing things needed for daily living?: no Has anyone in your life made you feel unsafe or unsupported?: no How hard is it for you to pay for the very basics like food, housing, medical care, and heating? Would you say it is:: Not hard at all Do you want help finding or keeping work or a job?: I do not need or want help If for any reason you need help with day-to-day activities such as bathing, preparing meals, shopping, managing finances, etc., do you get the help you need?: I don?t need any help How often do you feel lonely or isolated from those around you?: Sometimes Do you speak a language other than [place] at home?: No Does the patient want assistance with any of the above?: No Health Related Social Needs Health related social needs: feeling lonely/isolated (Z60.8) PFSH All Active Problems Influenza A (Acute) COPD (chronic obstructive pulmonary disease) (Chronic) Nicotine dependence, cigarettes, uncomplicated (Acute) Pulmonary nodule (Acute) LISA (obstructive sleep apnea) (Chronic) Acute hypoxic respiratory failure (Acute) Continuous tobacco abuse (Acute) Medical History Dyslipidemia Hypertension History of DVT (deep vein thrombosis) Social History Smoking/Tobacco Use Status: Current every day Tobacco Type: cigarettes and e-cigarettes Smoking risk assessment performed?: Yes Alcohol Intake: former Drug use: Rarely Substance use type: marijuana Housing: apartment Do you feel safe at home: Yes Do you feel safe in your relationship?: Yes Readmission Within the Past 30 Days Yes or No: No
[2025-01-05] MEDS: Rivaroxaban 10 MG TABLET 20 MG PO (17:13)
--- NOTE | 2025-01-05 18:52 | DSE_ITS ---
Date of service: 01/05/25 Time of Service: 18:52 DS: Diagnosis Discharge Diagnosis (1) Influenza A: Status: Acute Discharge Plan Disposition Patient Disposition: Home Condition: Improving Discharge Details Reason For Visit: flu, COPD Admit Date/Time: 01/04/25 23:25 Admit Provider: Jason Syed Attending Provider: Yue Naik Primary Care Provider: Sherrell Weiss Hospital Course Hospital Course: * Acute exacerbation of COPD secondary to Influenza A Discharge Diagnosis: * Acute exacerbation of COPD secondary to Influenza A * Chronic Obstructive Pulmonary Disease * History of Abdominal Aortic Aneurysm * Hypertension * Dyslipidemia * Tobacco Use Disorder History of Present Illness: The patient is a 64-year-old female with a history of COPD, hypertension, dyslipidemia, DVT on Xarelto, and an AAA under surveillance at [facility]. She presented to the Emergency Department with increased shortness of breath and cough for approximately one week, reporting that she had not returned to her baseline. She denied chest pain, abdominal pain, nausea, vomiting, or diarrhea. She continues to smoke approximately 1/4 pack per day and vapes 15-20 times per day. She received the influenza vaccine this season. In the Emergency Department, the patient was found to be hypoxic with oxygen saturations in the 80s, improved to 94% on 2L nasal cannula. Physical examination was notable for tripoding, diminished right lung sounds, and scattered wheezes on the left. Hospital Course: * Respiratory: Patient was started on DuoNeb treatments and IV Solu-Medrol 125 mg. Despite initial treatment, she remained oxygen-dependent, requiring 2L nasal cannula to maintain saturations above 90%. Chest X-ray showed no evidence of pneumonia. * Infectious Disease: Patient tested positive for Influenza A. She was treated with Tamiflu. * Cardiology: Serial troponins were negative. EKG showed no acute ischemic changes. ProBNP was within normal limits. * Laboratory Findings: CBC and CMP were largely unremarkable. VBG was within normal limits. The patient was admitted to the hospitalist service for further management of her COPD exacerbation. The patient improved and did not require oxygen and was back to baseline. Discharge Medications: * Tamiflu 75 mg PO BID for the remainder of the 5-day course * Prednisone 40 mg PO daily for 5 days * Albuterol/Ipratropium (DuoNeb) as needed * Home antihypertensives and lipid-lowering agents per prior regimen Discharge Instructions: * Continue smoking cessation efforts; the patient was counseled on the i mportance of cessation, particularly in light of her planned AAA repair. * Take tamiflu until course is completed * Take benzonatate as needed three times a day for cough. * Take prednisone for five days * Follow-up with [facility] for AAA management in 2 months * PCP follow-up in 1 week * Return to the ED for worsening shortness of breath, persistent hypoxia, chest pain, or any concerning symptoms Condition at Discharge: * The patient was discharged in stable condition Home Meds and New Rx's Prescriptions: New oseltamivir [Tamiflu] 75 mg capsule 75 mg PO BID 5 Days Qty: 10 0RF prednisone 50 mg tablet 50 mg PO DAILY 5 Days Qty: 5 0RF Rx Instructions: Take 1 tablet daily for the next 5 days benzonatate 100 mg capsule 100 mg PO TID PRN (Reason: cough) Qty: 14 0RF Rx Instructions: Take 1 capsule up to 3 times daily as needed for cough oseltamivir 75 mg Capsule 75 mg PO BID Qty: 8 0RF benzonatate 100 mg capsule 100 mg PO BID PRNQty: 10 0RF Continued bupropion HCl 100 mg tablet sustained-release 12 hr 100 mg PO DAILY diclofenac sodium [Arthritis Pain (diclofenac)] 1 % gel 2 g topical QID Rx Instructions: apply to single elbow, wrist or hand; for hand includes palm/fingers/back of hand methocarbamol 750 mg tablet 750 mg PO BID PRN metoprolol succinate 25 mg tablet extended release 24 hr 25 mg PO DAILY Ozempic 2 mg/dose (8 mg/3 mL) pen injector 2 mg subcut QWEEK varenicline tartrate 1 mg tablet 1 mg PO BID albuterol sulfate [Ventolin HFA] 90 mcg/actuation HFA aerosol inhaler 2 puff inhalation BID PRN Stiolto Respimat 2.5-2.5 mcg/actuation mist 2 puff inhalation DAILY Qty: 4 12RF nicotine (polacrilex) 4 mg gum 4 mg buccal Q1H Qty: 50 5RF Jardiance 10 mg tablet 10 mg PO DAILY furosemide 20 mg tablet 20 mg PO DAILY cyclobenzaprine 10 mg tablet 10 mg PO Q8H Patient Comments: TAKE ONE TABLET BY MOUTH THREE TIMES A DAY Xarelto 20 mg tablet 20 mg PO DAILY Rx Instructions: must administer with evening meal amlodipine 5 mg tablet 5 mg PO DAILY sertraline 50 mg tablet 50 mg PO DAILY atorvastatin 40 mg tablet 40 mg PO DAILY omeprazole 40 mg capsule,delayed release(DR/EC) 40 mg PO DAILY ferrous sulfate [Feosol] 325 mg (65 mg iron) tablet 324 mg PO DAILY cholecalciferol (vitamin D3) [Vitamin D3] 125 mcg (5,000 unit) tablet 5,000 unit PO DAILY multivitamin [Daily Multi-Vitamin] Tablet 1 tab PO DAILY albuterol sulfate 2.5 mg /3 mL (0.083 %) Solution For Nebulization 2.5 mg UPD Q4H PRN PRNQty: 75 0RF albuterol sulfate 90 mcg/actuation HFA aerosol inhaler 2 puff inhalation Q12H PRN PRNQty: 6.7 0RF Rx Instructions: While outside of home setting Discharge Instructions Instructions: Flu, Adult ED, Quitting Smoking ED Additional Instructions: You have tested positive for influenza A. No evidence of pneumonia, cardiac injury or blood clots. Please continue to use your inhalers as previously prescribed. Take the Tamiflu twice a day for the next 5 days. Take the prednisone tablets 1 tablet a day for the next 5 days. Congratulations on deciding to quit smoking. This is the best thing you can do for your health. Follow up with primary care provider in 3-5 days. Return to ED sooner if any worsening or concerns. The emergency department sent your prescriptions in; I also sent your prescriptions in - I will call the pharmacy so you aren't given more than you need. Stand Alone Forms: Nursing Discharge Form Referrals: Sherrell Weiss [Primary Care Provider] - 3 days Activity:: Activity as Tolerated Equipment/Supplies:: No Equipment Needed Diet:: As Tolerated Discharge Orders Discharge Orders: Discharge Order (Routine); Ordered 01/05/25 Ordered By: Yue Naik Discharge Data Discharge Date/Time-TO BE ENTERED AT DEPARTURE: 01/05/25 20:59 DS: Summary Time Spent with Patient providing and/or coordinating discharge services: Greater than 30 minutes Status at Discharge Functional status at discharge: independent ambulation Overall status at discharge: patient is back to baseline Mental Status: mental status grossly normal Speech and Movement: speech and movement normal Mood: congruent mood Affect: normal affect Quality:SDOH Health Related Social Needs: Health related social needs feeling lonely/isolated (Z 60.8) Exam Narrative Exam Narrative: Gen: NAD, normal respiratory effort, well-nourished HENT: PERRL Chest: No respiratory distress, normal appearance of chest, clear to auscultation bilaterally Heart: regular rate and rhythym, no murmurs, rubs or gallops Abdomen: Non-distended, soft, non tender Extremities: No clubbing, edema, cyanosis, rashes Neuro: AAOx3 , non focal Psych: cooperative, appropriate mental affect Psych Mental Status: mental status grossly normal Speech and Movement: speech and movement normal Mood: congruent mood Affect: normal affect DS: Data Vitals/I&O Vitals and I&O: Vital Signs Temperature 36.6 C 01/05/25 16:07 Temperature Source Temporal Artery Scan 01/05/25 16:07 Pulse 102 H 01/05/25 17:43 Pulse Rhythm Regular 01/05/25 01:35 Pulse 115 H 01/04/25 23:50 Respiratory Rate 20 01/05/25 17:43 Respiratory Effort Normal 01/05/25 01:35 Respiratory Depth Normal 01/05/25 01:35 Respiratory Pattern Normal 01/05/25 01:35 Blood Pressure 126/77 01/05/25 16:07 Blood Pressure Mean 102 01/04/25 23:46 Pulse Oximetry 95 01/05/25 17:43 Oxygen Delivery Method Room Air 01/05/25 17:34 Oxygen Flow Rate 0 01/05/25 17:34 Pain Level 0 01/05/25 08:17 Intake & Output 01/04/25 01/05/25 01/05/25 23:59 11:59 23:59 Weight 92.986 kg 92.986 kg Other: Urine Color Yellow Urine Appearance Clear Urine Odor Normal Comment pT reports she has voided multiple times today Data Completed and Pending Labs on day of discharge: Labs from last 24 hours 01/04/25 01/04/25 01/04/25 23:53 22:00 21:12 WBC 8.03 RBC 5.52 H Hgb 14.8 Hct 48.6 H MCV 88 MCH 26.8 L MCHC 30.5 L RDW 15.7 H Plt Count 239 MPV 8.7 Immature Gran % 0.4 Neutrophils % 65.3 Lymphocytes % 20.5 Monocytes % 9.0 Eosinophils % 4.4 Basophils % 0.4 Nucleated RBC % 0.0 Absolute Neutrophils 5.25 Absolute Lymphocytes 1.65 Absolute Monocytes 0.72 Absolute Eosinophils 0.35 Absolute Basophils 0.03 VBG pH 7.36 VBG pCO2 49 VBG pO2 45 VBG HCO3 28 VBG Total CO2 25 VBG O2 Saturation 81 VBG Base Excess 3 Sodium 139 Potassium 4.1 Chloride 103 Carbon Dioxide 30.4 Anion Gap 5.6 BUN 16 Creatinine 1.0 Est GFR (CKD-EPI 2020) 63.30 Glucose 104 Calcium 9.4 Total Bilirubin 0.31 AST 19 ALT 42 Alkaline Phosphatase 104 Troponin I Cancelled 5 7 NT-Pro-B Natriuret Pep 26 Total Protein 7.6 Albumin 3.4 COVID-19 Source SARS-CoV-2 (PCR) Influenza Type A (PCR) Influenza Type B (PCR) RSV (PCR) 01/04/25 21:00 WBC RBC Hgb Hct MCV MCH MCHC RDW Plt Count MPV Immature Gran % Neutrophils % Lymphocytes % Monocytes % Eosinophils % Basophils % Nucleated RBC % Absolute Neutrophils Absolute Lymphocytes Absolute Monocytes Absolute Eosinophils Absolute Basophils VBG pH VBG pCO2 VBG pO2 VBG HCO3 VBG Total CO2 VBG O2 Saturation VBG Base Excess Sodium Potassium Chloride Carbon Dioxide Anion Gap BUN Creatinine Est GFR (CKD-EPI 2020) Glucose Calcium Total Bilirubin AST ALT Alkaline Phosphatase Troponin I NT-Pro-B Natriuret Pep Total Protein Albumin COVID-19 Source Nasopharynx SARS-CoV-2 (PCR) Negative Influenza Type A (PCR) Positive A Influenza Type B (PCR) Negative RSV (PCR) Negative PFSH All Active Problems Influenza A (Acute) COPD (chronic obstructive pulmonary disease) (Chronic) Nicotine dependence, cigarettes, uncomplicated (Acute) Pulmonary nodule (Acute) LISA (obstructive sleep apnea) (Chronic) Acute hypoxic respiratory failure (Acute) Continuous tobacco abuse (Acute) Medical History Dyslipidemia Hypertension History of DVT (deep vein thrombosis) Social History Smoking/Tobacco Use Status: Current every day Tobacco Type: cigarettes and e- cigarettes Smoking risk assessment performed?: Yes Alcohol Intake: former Drug use: Rarely Substance use type: marijuana Housing: apartment Do you feel safe at home: Yes Do you feel safe in your relationship?: Yes Time Spent with Patient Time Spent with Patient: 45-69 minutes Time was spent: preparing to see the patient(eg.review tests), ordering medications,tests, procedures, referring, communicating with other health personal care aide, indepentently interpreting results, counseling the patient and care coordination
[2025-01-05] MEDS: Atorvastatin 40 MG TAB PO (20:33)
[2025-01-05] MEDS: Methocarbamol 750 MG TAB PO (20:33)
== END 2025-01-05 20:59 | disposition home or self-care (01) | DRG 193 ==
LOC: ER 01-05 00:44 → MS 01-05 00:59
PROVIDERS: Admitting Provider General Practice; Emergency Provider Registered Nurse Emergency; PCP Family Medicine; Visit Provider Nurse Practitioner Family
DX: J10.1 Influenza due to other identified influenza virus with other respiratory manifestations (principal); J96.01 Acute respiratory failure with hypoxia; J44.1 Chronic obstructive pulmonary disease with (acute) exacerbation; F17.210 Nicotine dependence, cigarettes, uncomplicated; G47.33 Obstructive sleep apnea (adult) (pediatric); R91.1 Solitary pulmonary nodule; I10 Essential (primary) hypertension; E78.5 Hyperlipidemia, unspecified; Z86.718 Personal history of other venous thrombosis and embolism; F12.90 Cannabis use, unspecified, uncomplicated; Z79.01 Long term (current) use of anticoagulants; I71.40 Abdominal aortic aneurysm, without rupture, unspecified
CPT/HCPCS: 00123; 36415; 80053; 82805; 87637; 93005; 94640; 94761; 96374; 99285; 71045; 83880; 84484; 85025; 93010; 94664; 94760; 99222; 99239; J2919; J7620

== ENCOUNTER 2025-01-12 10:20 | Emergency (ER) | payer MEDICAID, SELFPAY ==
[2025-01-12] VITALS (32 sets, daily range): BP systolic 120–169; BP diastolic 78–119; PULSE 105–145; RESP 14–32; TEMP 36.4–37.8; O2SAT 90–95
--- NOTE | 2025-01-12 10:45 | DI.RAD_ITS ---
Exam(s) XR CHEST 2V PA LATERAL EXAM: XR CHEST 2V PA LATERAL CLINICAL HISTORY: fever, shortness of breath, flu TECHNIQUE: 2D digital imaging was performed of the chest. Two images were obtained. PA and lateral views were obtained. COMPARISON: CR XR PORTABLE CHEST AP from 12/03/2023 CR,XR XR PORTABLE CHEST AP from 01/04/2025 FINDINGS: MEDIASTINUM: Normal. HEART: Normal. PULMONARY VASCULATURE: Normal. LUNGS: There are increased lung markings in the retrocardiac region in the left base suspicious for p neumonia. The right lung is clear. PLEURAL SPACE: No pleural effusion or pneumothorax. BONE:Within normal limits for the patient's age. OTHER FINDINGS:Normal. IMPRESSION: Left basilar infiltrate suspicious for pneumonia. DATA REPOSITORY: RADIATION DOSE DELIVERED:
[2025-01-12 11:38] LABS: Abs Immature Grans 0.24 10^3/uL (0.0-0.06); Absolute Monocyte Count 2.03 10^3/uL (0.1-0.8); Basophils % 0.3 %; Eosinophils % 1.3 %; HGB 15.6 g/dL (11.2-15.7); Immature Grans % 0.9 %; Lactate 2.2 mmol/L (<or=2.0); Lymphocytes % 7.4 %; MCH 26.9 pg (27.0-33.0); MCHC 31.2 % (32.0-36.0); MCV 86 fL (80-95); MPV 8.7 fL (8.0-11.0); Monocytes % 7.7 %; Neutrophils % 82.4 %; Platelet Count 366 10^3/uL (130-400); RDW 15.8 % (11.7-14.6); RDW-SD 49.4 fL
--- NOTE | 2025-01-12 11:45 | RT.EKG_ITS ---
APPROVED REPORT Exam: Resting ECG Reason for Exam: weakness Patient Location: E HR:130 bpm ECG Measurements Heart Rate 130 AXIS KS 163 P 33 QRSd 85 QRS 64 QT 291 T 40 QTc 429 Conclusion Sinus tachycardia...rate> 99 Consider anterior infarct...Q >30mS in V2-V5 Physician: no stemi, minimal st elevation in III but unchanged from prior ekg on 01/04/25
[2025-01-12] MEDS: methylPREDNISolone SUCC 125 MG VIAL 80 MG IVP (11:48)
[2025-01-12] MEDS: Lactated Ringers 1,000 ML 1000 ML IV (11:48)
[2025-01-12 12:00] LABS: Absolute Basophil Count 0.08 10^3/uL (0.0-0.2); Absolute Eosinophil Count 0.34 10^3/uL (0.0-0.7); Absolute Lymphocyte Count 1.95 10^3/uL (1.2-3.4); Absolute Neutrophil Count 21.69 10^3/uL (1.2-6.7); Diff Comment Diff Reviewed; RBC Morphology Normal
[2025-01-12 12:03] LABS: WBC 26.32 10^3/uL (4.4-10.8)
[2025-01-12 12:20] LABS: COVID-19 PCR Negative (Negative); Influenza A PCR Positive (Negative); Influenza B PCR Negative (Negative); RSV PCR Negative (Negative)
[2025-01-12] MEDS: Acetaminophen 325 MG TAB 650 MG PO (12:20)
[2025-01-12 12:21] LABS: Source Nasopharynx
[2025-01-12] MEDS: DOXYCYCLINE 100 MG in Normal Saline 100 ML IVPB (12:21)
[2025-01-12] MEDS: Nicotine 21 MG/24 HR PATCH TD (12:21)
[2025-01-12 12:57] LABS: Magnesium 1.9 mg/dL (1.8-2.4)
[2025-01-12 13:00] LABS: ALT 50 U/L (14-59); AST 34 U/L (15-37); Albumin 3.5 g/dL (3.4-5.0); Alkaline Phosphatase 104 U/L (46-116); Anion Gap 9.6 mmol/L (3-11); BUN 24 mg/dL (7-18); Bilirubin, Total 0.86 mg/dL (0.2-1.0); CO2 24.4 mmol/L (21.0-32.0); CREATININE 1.1 mg/dL (0.55-1.02); Calcium 9.2 mg/dL (8.5-10.1); Chloride 102 mmol/L (98-107); Estimated GFR 56.46 (mL/min/1.73m2); Glucose 117 mg/dL (74-106); Sodium 136 mmol/L (136-145); Total Protein 7.6 g/dL (6.4-8.2)
[2025-01-12 13:06] LABS: Bilirubin Negative (Negative); Blood Negative (Negative); Clarity Clear (Clear); Glucose Negative (Negative); Ketones Negative (Negative); Leukocyte Esterase Negative (Negative); Nitrite Negative (Negative); Urobilinogen 0.2 mg/dL (Up to 0.2); pH 5.5 (5-8)
[2025-01-12] MEDS: Normal Saline 1,000 ML 500 ML IV (13:19)
[2025-01-12] MEDS: cefTRIAXone 2 GM/50 ML BAG IVPB (13:48)
--- NOTE | 2025-01-12 15:40 | W.ED.GENAD ---
Discharge Plan Disposition Patient Disposition: Home Condition: Stable Discharge Details Clinical Impression: Pneumonia, Influenza A, COPD (chronic obstructive pulmonary disease) Primary Care Provider: Sherrell Weiss ED Provider: Karine Paredes Home Meds and New Rx's Prescriptions: New amoxicillin-pot clavulanate 875-125 mg tablet 1 tab PO BID Qty: 10 0RF doxycycline hyclate 100 mg capsule 100 mg PO BID Qty: 10 0RF prednisone 10 mg tablet 10 mg PO DIRECTED Qty: 20 0RF Rx Instructions: take 4 tabs x2 days, 3 tabs x2 days, 2 tabs x2 days, 1 tab x2 days ondansetron HCl 4 mg tablet 4 mg PO Q8H 3 Days Qty: 9 0RF hydrocodone-homatropine [Hycodan] 5-1.5 mg/5 mL (5 mL) syrup 5 ml PO Q6H PRNQty: 60 0RF Continued bupropion HCl 100 mg tablet sustained-release 12 hr 100 mg PO DAILY diclofenac sodium [Arthritis Pain (diclofenac)] 1 % gel 2 g topical QID Rx Instructions: apply to single elbow, wrist or hand; for hand includes palm/fingers/back of hand methocarbamol 750 mg tablet 750 mg PO BID PRN metoprolol succinate 25 mg tablet extended release 24 hr 25 mg PO DAILY Ozempic 2 mg/dose (8 mg/3 mL) pen injector 2 mg subcut QWEEK varenicline tartrate 1 mg tablet 1 mg PO BID albuterol sulfate [Ventolin HFA] 90 mcg/actuation HFA aerosol inhaler 2 puff inhalation BID PRN Stiolto Respimat 2.5-2.5 mcg/actuation mist 2 puff inhalation DAILY Qty: 4 12RF nicotine (polacrilex) 4 mg gum 4 mg buccal Q1H Qty: 50 5RF Jardiance 10 mg tablet 10 mg PO DAILY furosemide 20 mg tablet 20 mg PO DAILY benzonatate 100 mg capsule 100 mg PO TID PRN (Reason: cough) Qty: 14 0RF Rx Instructions: Take 1 capsule up to 3 times daily as needed for cough cyclobenzaprine 10 mg tablet 10 mg PO Q8H Patient Comments: TAKE ONE TABLET BY MOUTH THREE TIMES A DAY benzonatate 100 mg capsule 100 mg PO BID PRNQty: 10 0RF Xarelto 20 mg tablet 20 mg PO DAILY Rx Instructions: must administer with evening meal amlodipine 5 mg tablet 5 mg PO DAILY sertraline 50 mg tablet 50 mg PO DAILY atorvastatin 40 mg tablet 40 mg PO DAILY omeprazole 40 mg capsule,delayed release(DR/EC) 40 mg PO DAILY ferrous sulfate [Feosol] 325 mg (65 mg iron) tablet 324 mg PO DAILY cholecalciferol (vitamin D3) [Vitamin D3] 125 mcg (5,000 unit) tablet 5,000 unit PO DAILY multivitamin [Daily Multi-Vitamin] Tablet 1 tab PO DAILY albuterol sulfate 2.5 mg /3 mL (0.083 %) Solution For Nebulization 2.5 mg UPD Q4H PRN PRNQty: 75 0RF albuterol sulfate 90 mcg/actuation HFA aerosol inhaler 2 puff inhalation Q12H PRN PRNQty: 6.7 0RF Rx Instructions: While outside of home setting Discharge Instructions Instructions: Community-Acquired Pneumonia, Adult (DC), COPD Exacerbation, Adult ED, Flu, Adult ED Additional Instructions: at least 8, 8oz glasses of water/fluids daily take prednisone as prescribed continue on your inhalers take the antibiotics as prescribed tylenol 500 mg every 8 hours, do not exceed 3 grams of tylenol daily popsicles, gingerale, recheck in 48 hours compazine as needed for nausea and vomiting, return with worsening symptoms, shortness of breath, or should any new concerns arise Referrals: Sherrell Weiss [Primary Care Provider] - 1 day Discharge Data Discharge Date/Time-TO BE ENTERED AT DEPARTURE: 01/12/25 15:18 HPI General Date/Time Provider Initiated Documentation: 01/12/25 10:46. HPI Narrative: The patient is a 64-year-old female with a history of COPD and tobacco use, presenting with a recent diagnosis of pneumonia and worsening symptoms despite an 8-day course of antibiotics. She reports persistent body aches, a productive cough, and worsening shortness of breath, prompting her to seek medical attention. Related Data Home Medications ?Medication ?Instructions ?Recorded ?Confirmed amlodipine 5 mg tablet 5 mg PO DAILY 12/03/23 01/12/25 atorvastatin 40 mg tablet 40 mg PO DAILY 12/03/23 01/12/25 cholecalciferol (vitamin D3) 125 5,000 unit PO DAILY 01/10/24 02/19/25 mcg (5,000 unit) tablet (Vitamin D3) ferrous sulfate 325 mg (65 mg 324 mg PO DAILY 12/03/23 01/12/25 iron) tablet (Feosol) multivitamin (Daily Multi-Vitamin 1 tab PO DAILY 12/03/23 01/12/25 tablet) omeprazole 40 mg capsule,delayed 40 mg PO DAILY 12/03/23 01/12/25 release rivaroxaban 20 mg tablet (Xarelto) 20 mg PO DAILY 12/03/23 01/12/25 sertraline 50 mg tablet 50 mg PO DAILY 12/03/23 01/12/25 albuterol sulfate 2.5 mg/3 mL 2.5 mg (3 mL) UPD Q4H PRN PRN #75 12/05/23 01/12/25 (0.083 %) solution for nebulization mL albuterol sulfate 90 mcg/actuation 2 puff inhalation Q12H PRN PRN 12/05/23 01/12/25 aerosol inhaler #6.7 grams nicotine (polacrilex) 4 mg gum 4 mg buccal Q1H #50 ea 12/22/23 01/12/25 tiotropium 2.5 mcg-olodaterol 2.5 2 puff inhalation DAILY #4 grams 12/22/23 01/12/25 mcg/actuation mist for inhalation (Stiolto Respimat) empagliflozin 10 mg tablet 10 mg PO DAILY 12/20/24 01/12/25 (Jardiance) furosemide 20 mg tablet 20 mg PO DAILY 12/20/24 01/12/25 albuterol sulfate 90 mcg/actuation 2 puff inhalation BID PRN 12/22/24 01/12/25 aerosol inhaler (Ventolin HFA) bupropion HCl 100 mg tablet,12 hr 100 mg PO DAILY 12/22/24 01/12/25 sustained-release diclofenac sodium 1 % topical gel 2 g topical QID 12/22/24 01/12/25 (Arthritis Pain (diclofenac)) methocarbamol 750 mg tablet 750 mg PO BID PRN 12/22/24 01/12/25 metoprolol succinate 25 mg 25 mg PO DAILY 12/22/24 01/12/25 tablet,extended release 24 hr semaglutide 2 mg/dose (8 mg/3 mL) 2 mg subcut QWEEK 12/22/24 01/12/25 subcutaneous pen injector (Ozempic) varenicline tartrate 1 mg tablet 1 mg PO BID 12/22/24 01/12/25 benzonatate 100 mg capsule 100 mg PO TID PRN cough #14 caps 01/04/25 01/12/25 benzonatate 100 mg capsule 100 mg PO BID PRN #10 caps 01/05/25 01/12/25 cyclobenzaprine 10 mg tablet 10 mg PO Q8H 01/05/25 01/12/25 amoxicillin 875 mg-potassium 1 tab PO BID #10 tabs 01/12/25 clavulanate 125 mg tablet doxycycline hyclate 100 mg capsule 100 mg PO BID #10 caps 01/12/25 hydrocodone-homatropine 5 mg-1.5 5 ml PO Q6H PRN #60 mL 01/12/25 mg/5 mL (5 mL) oral syrup (Hycodan) ondansetron HCl 4 mg tablet 4 mg PO Q8H 3 days #9 tabs 01/12/25 prednisone 10 mg tablet 10 mg PO DIRECTED #20 tabs 01/12/25 Previous Rx's ?Medication ?Instructions ?Recorded albuterol sulfate 2.5 mg/3 mL 2.5 mg (3 mL) UPD Q4H PRN PRN #75 12/05/23 (0.083 %) solution for nebulization mL albuterol sulfate 90 mcg/actuation 2 puff inhalation Q12H PRN PRN 12/05/23 aerosol inhaler #6.7 grams nicotine (polacrilex) 4 mg gum 4 mg buccal Q1H #50 ea 12/22/23 tiotropium 2.5 mcg-olodaterol 2.5 2 puff inhalation DAILY #4 grams 12/22/23 mcg/actuation mist for inhalation (Stiolto Respimat) benzonatate 100 mg capsule 100 mg PO TID PRN cough #14 caps 01/04/25 benzonatate 100 mg capsule 100 mg PO BID PRN #10 caps 01/05/25 amoxicillin 875 mg-potassium 1 tab PO BID #10 tabs 01/12/25 clavulanate 125 mg tablet doxycycline hyclate 100 mg capsule 100 mg PO BID #10 caps 01/12/25 hydrocodone-homatropine 5 mg-1.5 5 ml PO Q6H PRN #60 mL 01/12/25 mg/5 mL (5 mL) oral syrup (Hycodan) ondansetron HCl 4 mg tablet 4 mg PO Q8H 3 days #9 tabs 01/12/25 prednisone 10 mg tablet 10 mg PO DIRECTED #20 tabs 01/12/25 Allergies Allergy/AdvReac Type Severity Reaction Status Date / Time No Known Allergies Allergy Verified 01/12/25 10:38 General Stated Complaint: RespSymp EMETERIO: 3 Exam Narrative Exam Narrative: The patient is alert and oriented, in no acute distress, but appears unwell. Tonsils are unremarkable. No meningismus observed. Lungs are clear to auscultation. Mildly increased work of breathing noted. Sinus tachycardia present. No calf swelling or tenderness. No rashes or lesions on the skin. Vital Signs Pulse rate is 105. Ambulatory without hypoxia at 92 percent. Course Vital Signs Vital signs: Vital Signs Temperature 37.8 C H 01/12/25 10:35 Pulse 145 H 01/12/25 10:35 Respiratory Rate 25 H 01/12/25 10:35 Blood Pressure 121/86 01/12/25 10:35 Pulse Oximetry 91 L 01/12/25 10:35 Temperature 36.4 C 01/12/25 15:00 Pulse 105 H 01/12/25 15:00 Pulse 107 H 01/12/25 15:00 Respiratory Rate 22 01/12/25 15:00 Respiratory Effort Short of Breath, Labored 01/12/25 12:57 Respiratory Depth Shallow 01/12/25 12:57 Blood Pressure 126/84 01/12/25 15:00 Blood Pressure Mean 98 01/12/25 15:00 Blood Pressure Position Sitting 01/12/25 10:35 Pulse Oximetry 92 01/12/25 15:00 Oxygen Delivery Method Room Air 01/12/25 10:35 Oxygen Flow Rate 0 01/12/25 10:35 Pain Level 1 01/12/25 15:02 Comment Pt maintained O2 sat of at least 92% on RA when ambulating 01/12/25 14:00 Lab/Test Results Lab/Test Results: 01/12/25 11:45 Blood Blood Culture - Pending 01/12/25 11:20 Blood Blood Culture - Pending Laboratory Tests Range/Units 01/12/25 01/12/25 01/12/25 11:20 11:26 12:55 WBC (4.4-10.8) 10^3/uL 26.32 H* RBC (3.93-5.22) 10^6/uL 5.80 H Hgb (11.2-15.7) g/dL 15.6 Hct (36.0-46.0) % 50.0 H MCV (80-95) fL 86 MCH (27.0-33.0) pg 26.9 L MCHC (32.0-36.0) % 31.2 L RDW (11.7-14.6) % 15.8 H Plt Count (130-400) 10^3/uL 366 MPV (8.0-11.0) fL 8.7 Immature Gran % % 0.9 Neutrophils % % 82.4 Lymphocytes % % 7.4 Monocytes % % 7.7 Eosinophils % % 1.3 Basophils % % 0.3 Nucleated RBC % (0.0-0.3) % 0.0 Absolute Neutrophils (1.2-6.7) 10^3/uL 21.69 H Absolute Lymphocytes (1.2-3.4) 10^3/uL 1.95 Absolute Monocytes (0.1-0.8) 10^3/uL 2.03 H Absolute Eosinophils (0.0-0.7) 10^3/uL 0.34 Absolute Basophils (0.0-0.2) 10^3/uL 0.08 RBC Morphology Normal VBG Lactate (<or=2.0) mmol/L 2.2 H* Sodium (136-145) mmol/L 136 Potassium (3.5-5.1) mmol/L 4.0 Chloride (98-107) mmol/L 102 Carbon Dioxide (21.0-32.0) mmol/L 24.4 Anion Gap (3-11) mmol/L 9.6 BUN (7-18) mg/dL 24 H Creatinine (0.55-1.02) mg/dL 1.1 H Est GFR (CKD-EPI 2020) (mL/min/1.73m2) 56.46 Glucose (74-106) mg/dL 117 H Calcium (8.5-10.1) mg/dL 9.2 Magnesium (1.8-2.4) mg/dL 1.9 Total Bilirubin (0.2-1.0) mg/dL 0.86 AST (15-37) U/L 34 ALT (14-59) U/L 50 Alkaline Phosphatase (46-116) U/L 104 Total Protein (6.4-8.2) g/dL 7.6 Albumin (3.4-5.0) g/dL 3.5 Urine Color (Yellow) Yellow Urine Clarity (Clear) Clear Urine pH (5-8) 5.5 Ur Specific [place] (1.005-1.025) 1.020 Urine Protein (Neg-Trace) mg/dL Negative Urine Ketones (Negative) mg/dL Negative Urine Blood (Negative) Negative Urine Nitrite (Negative) Negative Urine Bilirubin (Negative) Negative Urine Urobilinogen (Up to 0.2) mg/dL 0.2 Ur Leukocyte Esterase (Negative) Negative Urine Glucose (Negative) mg/dL Negative COVID-19 Source Nasopharynx SARS-CoV-2 (PCR) (Negative) Negative Influenza Type A (PCR) (Negative) Positive A Influenza Type B (PCR) (Negative) Negative RSV (PCR) (Negative) Negative Range/Units 01/12/25 14:25 WBC (4.4-10.8) 10^3/uL RBC (3.93-5.22) 10^6/uL Hgb (11.2-15.7) g/dL Hct (36.0-46.0) % MCV (80-95) fL MCH (27.0-33.0) pg MCHC (32.0-36.0) % RDW (11.7-14.6) % Plt Count (130-400) 10^3/uL MPV (8.0-11.0) fL Immature Gran % % Neutrophils % % Lymphocytes % % Monocytes % % Eosinophils % % Basophils % % Nucleated RBC % (0.0-0.3) % Absolute Neutrophils (1.2-6.7) 10^3/uL Absolute Lymphocytes (1.2-3.4) 10^3/uL Absolute Monocytes (0.1-0.8) 10^3/uL Absolute Eosinophils (0.0-0.7) 10^3/uL Absolute Basophils (0.0-0.2) 10^3/uL RBC Morphology VBG Lactate (<or=2.0) mmol/L 2.0 Sodium (136-145) mmol/L Potassium (3.5-5.1) mmol/L Chloride (98-107) mmol/L Carbon Dioxide (21.0-32.0) mmol/L Anion Gap (3-11) mmol/L BUN (7-18) mg/dL Creatinine (0.55-1.02) mg/dL Est GFR (CKD-EPI 2020) (mL/min/1.73m2) Glucose (74-106) mg/dL Calcium (8.5-10.1) mg/dL Magnesium (1.8-2.4) mg/dL Total Bilirubin (0.2-1.0) mg/dL AST (15-37) U/L ALT (14-59) U/L Alkaline Phosphatase (46-116) U/L Total Protein (6.4-8.2) g/dL Albumin (3.4-5.0) g/dL Urine Color (Yellow) Urine Clarity (Clear) Urine pH (5-8) Ur Specific [place] (1.005-1.025) Urine Protein (Neg-Trace) mg/dL Urine Ketones (Negative) mg/dL Urine Blood (Negative) Urine Nitrite (Negative) Urine Bilirubin (Negative) Urine Urobilinogen (Up to 0.2) mg/dL Ur Leukocyte Esterase (Negative) Urine Glucose (Negative) mg/dL COVID-19 Source SARS-CoV-2 (PCR) (Negative) Influenza Type A (PCR) (Negative) Influenza Type B (PCR) (Negative) RSV (PCR) (Negative) Medical Decision Making Laboratory Studies Leukocytosis of 26,000 with 21% shift. Lactate 2.2, decreased to 2 on reassessment. Imaging Chest x-ray shows left lower lobe infiltrate. 1. Pneumonia. Her PORT score places her at low risk for hospital discharge. She received a dose of IV antibiotics in the emergency department. Although she is at higher risk, she is currently stable for discharge. A chest x-ray, diagnostic labs, fluids, IV antibiotics, and steroids were ordered. The chest x-ray revealed a left lower lobe infiltrate, and her leukocytosis was 26,000 with a 21% shift. She will be placed on Augmentin and doxycycline for home use. She is encouraged to continue her Tylenol regimen at home. She will need outpatient reassessment. Return precautions were reviewed, and she expressed understanding. She will continue to use her inhalers. She is discharged home in stable condition with improved vitals, able to tolerate p.o. given the threshold to return with new or worsening complaints. 2. Chronic Obstructive Pulmonary Disease (COPD). She has a history of COPD and tobacco use. Her lungs are mildly diminished with moderate work of breathing. No calf swelling or tenderness. She is speaking in complete sentences with moist mucous membranes. She is ambulatory without hypoxia at 92%. There is no clinical evidence to suggest pneumonia. She will continue to use her inhalers. She will be given Compazine for home as needed and her prednisone will be extended for the next several days. 3. Sinus Tachycardia. She exhibited sinus tachycardia, which has improved after treatment. Pulse rate is 105. 4. Leukocytosis. Her leukocytosis was 26,000 with a 21% shift. The remainder of her labs are reassuring. 1. Pneumonia. Her PORT score places her at low risk for hospital discharge. She received a dose of IV antibiotics in the emergency department. Although she is at higher risk, she is currently stable for discharge. A chest x-ray, diagnostic labs, fluids, IV antibiotics, and steroids were ordered. The chest x-ray revealed a left lower lobe infiltrate, and her leukocytosis was 26,000 with a 21% shift. She will be placed on Augmentin and doxycycline for home use. She is encouraged to continue her Tylenol regimen at home. She will need outpatient reassessment. Return precautions were reviewed, and she expressed understanding. She will continue to use her inhalers. She is discharged home in stable condition with improved vitals, able to tolerate p.o. given the threshold to return with new or worsening complaints. Quality:[facility] Health Related Social Needs: Health related social needs feeling lonely/isolated (Z60.8) [facility] All Active Problems (Updated 01/12/25 @ 14:41 by GIL Grace) COPD (chronic obstructive pulmonary disease) (Chronic) Influenza A (Acute) Pneumonia (Acute) Influenza A (Acute) COPD (chronic obstructive pulmonary disease) (Chronic) Nicotine dependence, cigarettes, uncomplicated (Acute) Pulmonary nodule (Acute) LISA (obstructive sleep apnea) (Chronic) Acute hypoxic respiratory failure (Acute) Continuous tobacco abuse (Acute) Medical History Dyslipidemia Hypertension History of DVT (deep vein thrombosis) Social History Smoking/Tobacco Use Status: Former Tobacco Use Quit Date: 01/04/25 Tobacco: How many years used: 55 Smoking risk assessment performed?: Yes Alcohol Intake: former Drug use: Rarely Substance use type: marijuana Housing: apartment Do you feel safe at home: Yes Do you feel safe in your relationship?: Yes
== END 2025-01-12 15:18 | disposition home or self-care (01) ==
PROVIDERS: Emergency Provider Physician Assistant; PCP Family Medicine
DX: J10.00 Influenza due to other identified influenza virus with unspecified type of pneumonia (principal); J44.9 Chronic obstructive pulmonary disease, unspecified; I10 Essential (primary) hypertension; Z86.73 Personal history of transient ischemic attack (TIA), and cerebral infarction without residual deficits; Z87.891 Personal history of nicotine dependence
CPT/HCPCS: 36415; 80053; 87040; 87637; 93005; 96361; 96365; 96375; 99285; 71046; 81003; 83605; 83735; 85025; 93010; J0696; J2919

== ENCOUNTER 2025-02-08 16:19 | Emergency (ER) | payer MEDICAID, SELFPAY ==
[2025-02-08] VITALS (23 sets, daily range): BP systolic 108–152; BP diastolic 74–90; PULSE 89–100; RESP 12–30; TEMP 36.2; O2SAT 92–94
--- NOTE | 2025-02-08 18:30 | DI.RAD_ITS ---
Exam(s) XR CHEST 2V PA LATERAL EXAM: XR CHEST 2V PA LATERAL CLINICAL HISTORY: shortness of breath TECHNIQUE: 2D digital imaging was performed. Two views. COMPARISON: CR XR CHEST 2V PA LATERAL from 01/12/2025 FINDINGS: HEART: Normal size. Aorta: Not dilated. PULMONARY VASCULATURE: Normal. MEDIASTINUM: Unremarkable. LUNGS: Suboptimally inflated but clear. PLEURAL SPACE: No pleural effusion or pneumothorax. BONE:Unremarkable for age. SOFT TISSUES: Stable mild elevation of the left diaphragm. IMPRESSION: No acute abnormality. DATA REPOSITORY: RADIATION DOSE DELIVERED:
[2025-02-08 19:04] LABS: Abs Immature Grans 0.06 10^3/uL (0.0-0.06); Absolute Basophil Count 0.06 10^3/uL (0.0-0.2); Absolute Eosinophil Count 0.59 10^3/uL (0.0-0.7); Absolute Lymphocyte Count 1.49 10^3/uL (1.2-3.4); Absolute Monocyte Count 0.94 10^3/uL (0.1-0.8); Absolute Neutrophil Count 6.94 10^3/uL (1.2-6.7); Basophils % 0.6 %; Eosinophils % 5.9 %; HCT 45.5 % (36.0-46.0); HGB 14.4 g/dL (11.2-15.7); Immature Grans % 0.6 %; Lymphocytes % 14.8 %; MCH 27.3 pg (27.0-33.0); MCHC 31.6 % (32.0-36.0); MCV 86 fL (80-95); MPV 8.7 fL (8.0-11.0); Monocytes % 9.3 %; Neutrophils % 68.8 %; Platelet Count 307 10^3/uL (130-400); RBC 5.28 10^6/uL (3.93-5.22); RDW 15.6 % (11.7-14.6); RDW-SD 48.6 fL; WBC 10.08 10^3/uL (4.4-10.8)
[2025-02-08 19:24] LABS: Troponin I 5 ng/L (<or=51)
[2025-02-08 19:27] LABS: ALT 42 U/L (14-59); AST 15 U/L (15-37); Albumin 3.2 g/dL (3.4-5.0); Alkaline Phosphatase 107 U/L (46-116); Anion Gap 8.1 mmol/L (3-11); BUN 16 mg/dL (7-18); Bilirubin, Total 0.5 mg/dL (0.2-1.0); CO2 28.9 mmol/L (21.0-32.0); Calcium 9.5 mg/dL (8.5-10.1); Chloride 104 mmol/L (98-107); Glucose 122 mg/dL (74-106); Magnesium 1.9 mg/dL (1.8-2.4); Potassium 3.8 mmol/L (3.5-5.1); Sodium 141 mmol/L (136-145); TSH (W/Ref FT4) 1.05 uIU/mL (0.36-3.74); Total Protein 7.4 g/dL (6.4-8.2)
--- NOTE | 2025-02-08 19:30 | RT.EKG_ITS ---
APPROVED REPORT Exam: Resting ECG Reason for Exam: weakness Patient Location: E HR:88 bpm ECG Measurements Heart Rate 88 AXIS LA 182 P 25 QRSd 91 QRS 48 QT 379 T 69 QTc 460 Conclusion Sinus rhythm 88 normal axis no stemi
[2025-02-08 19:50] LABS: Bilirubin Negative (Negative); Blood Negative (Negative); Clarity Clear (Clear); Glucose 500 mg/dL (Negative); Ketones Negative (Negative); Leukocyte Esterase Negative (Negative); Nitrite Negative (Negative); Urobilinogen 0.2 mg/dL (Up to 0.2); pH 5.5 (5-8)
[2025-02-08] MEDS: Meclizine 25 MG TAB PO (20:13)
--- NOTE | 2025-02-08 20:36 | DI.VRAD_ITS ---
PROCEDURE INFORMATION: Exam: XR Chest Exam date and time: 02/08/2025 7:24 PM Age: 64 years old Clinical indication: Other: SOB TECHNIQUE: Imaging protocol: Radiologic exam of the chest. Views: 2 views. COMPARISON: CR XR CHEST 2V PA LATERAL 01/12/2025 12:36 PM FINDINGS: Limitations: Patient positioning is lordotic. Tubes, catheters and devices: Surgical hardware is incidentally noted overlying the lower cervical spine, also seen on the prior exam. The visualized bony structures appear grossly intact. Lungs: No pulmonary consolidation is seen. Pleural spaces: No pleural effusion or pneumothorax is demonstrated. Heart/Mediastinum: The heart appears normal in size. Bones/joints: A surgical anchor is incidentally noted in the left humeral head. IMPRESSION: No active disease is seen in the chest. Dictated and Authenticated by: Rishabh Amato MD. Orderin Lena Milton MD
--- NOTE | 2025-02-08 21:13 | ED.GENADUL_ITS ---
Discharge Plan Disposition Patient Disposition: Home Condition: Stable Discharge Details Clinical Impression: Benign paroxysmal positional vertigo Primary Care Provider: Sherrell Weiss ED Provider: Karine Paredes Home Meds and New Rx's Prescriptions: Continued bupropion HCl 100 mg tablet sustained-release 12 hr 100 mg PO DAILY diclofenac sodium [Arthritis Pain (diclofenac)] 1 % gel 2 g topical QID Rx Instructions: apply to single elbow, wrist or hand; for hand includes palm/fingers/back of hand methocarbamol 750 mg tablet 750 mg PO BID PRN metoprolol succinate 25 mg tablet extended release 24 hr 25 mg PO DAILY Ozempic 2 mg/dose (8 mg/3 mL) pen injector 2 mg subcut QWEEK varenicline tartrate 1 mg tablet 1 mg PO BID albuterol sulfate [Ventolin HFA] 90 mcg/actuation HFA aerosol inhaler 2 puff inhalation BID PRN Stiolto Respimat 2.5-2.5 mcg/actuation mist 2 puff inhalation DAILY Qty: 4 12RF nicotine (polacrilex) 4 mg gum 4 mg buccal Q1H Qty: 50 5RF Jardiance 10 mg tablet 10 mg PO DAILY furosemide 20 mg tablet 20 mg PO DAILY cyclobenzaprine 10 mg tablet 10 mg PO Q8H Patient Comments: TAKE ONE TABLET BY MOUTH THREE TIMES A DAY hydrocodone-homatropine [Hycodan] 5-1.5 mg/5 mL (5 mL) syrup 5 ml PO Q6H PRNQty: 60 0RF Xarelto 20 mg tablet 20 mg PO DAILY Rx Instructions: must administer with evening meal amlodipine 5 mg tablet 5 mg PO DAILY sertraline 50 mg tablet 50 mg PO DAILY atorvastatin 40 mg tablet 40 mg PO DAILY omeprazole 40 mg capsule,delayed release(DR/EC) 40 mg PO DAILY ferrous sulfate [Feosol] 325 mg (65 mg iron) tablet 324 mg PO DAILY cholecalciferol (vitamin D3) [Vitamin D3] 125 mcg (5,000 unit) tablet 5,000 unit PO DAILY multivitamin [Daily Multi-Vitamin] Tablet 1 tab PO DAILY albuterol sulfate 2.5 mg /3 mL (0.083 %) Solution For Nebulization 2.5 mg UPD Q4H PRN PRNQty: 75 0RF albuterol sulfate 90 mcg/actuation HFA aerosol inhaler 2 puff inhalation Q12H PRN PRNQty: 6.7 0RF Rx Instructions: While outside of home setting Discharge Instructions Instructions: Vertigo (a type of dizziness) Additional Instructions: take meclizine as needed for dizziness you can google rocky laird and perform the maneuvers as needed for return of dizziness return with worsening or persistent symptoms or should any new concerns arise Referrals: Sherrell Weiss [Primary Care Provider] - 1 day Discharge Data Discharge Date/Time-TO BE ENTERED AT DEPARTURE: 02/08/25 20:28 HPI General Date/Time Provider Initiated Documentation: 02/08/25 18:04 . HPI Narrative: 64-year-old female with history of DVT, dyslipidemia, hypertension, GERD, diabetes, and CHF, presenting with dizziness. Dizziness started after turning in bed last night, exacerbated by sudden movements. No chest pain, but reports fatigue. Symptoms persisted for 24 hours. No trauma or recent neck manipulations. First experience with these symptoms. Related Data Home Medications ?Medication ?Instructions ?Recorded ?Confirmed amlodipine 5 mg tablet 5 mg PO DAILY 12/03/23 02/08/25 atorvastatin 40 mg tablet 40 mg PO DAILY 12/03/23 02/08/25 cholecalciferol (vitamin D3) 125 5,000 unit PO DAILY 12/03/23 02/08/25 mcg (5,000 unit) tablet (Vitamin D3) ferrous sulfate 325 mg (65 mg 324 mg PO DAILY 12/03/23 02/08/25 iron) tablet (Feosol) multivitamin (Daily Multi-Vitamin 1 tab PO DAILY 12/03/23 02/08/25 tablet) omeprazole 40 mg capsule,delayed 40 mg PO DAILY 12/03/23 02/08/25 release rivaroxaban 20 mg tablet (Xarelto) 20 mg PO DAILY 12/03/23 02/08/25 sertraline 50 mg tablet 50 mg PO DAILY 12/03/23 02/08/25 albuterol sulfate 2.5 mg/3 mL 2.5 mg (3 mL) UPD Q4H PRN PRN #75 12/05/23 02/08/25 (0.083 %) solution for nebulization mL albuterol sulfate 90 mcg/actuation 2 puff inhalation Q12H PRN PRN 12/05/23 02/08/25 aerosol inhaler #6.7 grams nicotine (polacrilex) 4 mg gum 4 mg buccal Q1H #50 ea 12/22/23 02/08/25 tiotropium 2.5 mcg-olodaterol 2.5 2 puff inhalation DAILY #4 grams 12/22/23 02/08/25 mcg/actuation mist for inhalation (Stiolto Respimat) empagliflozin 10 mg tablet 10 mg PO DAILY 12/20/24 02/08/25 (Jardiance) furosemide 20 mg tablet 20 mg PO DAILY 12/20/24 02/08/25 albuterol sulfate 90 mcg/actuation 2 puff inhalation BID PRN 12/22/24 02/08/25 aerosol inhaler (Ventolin HFA) bupropion HCl 100 mg tablet,12 hr 100 mg PO DAILY 12/22/24 02/08/25 sustained-release diclofenac sodium 1 % topical gel 2 g topical QID 12/22/24 02/08/25 (Arthritis Pain (diclofenac)) methocarbamol 750 mg tablet 750 mg PO BID PRN 12/22/24 02/08/25 metoprolol succinate 25 mg 25 mg PO DAILY 12/22/24 02/08/25 tablet,extended release 24 hr semaglutide 2 mg/dose (8 mg/3 mL) 2 mg subcut QWEEK 12/22/24 02/08/25 subcutaneous pen injector (Ozempic) varenicline tartrate 1 mg tablet 1 mg PO BID 12/22/24 02/08/25 cyclobenzaprine 10 mg tablet 10 mg PO Q8H 01/05/25 02/08/25 hydrocodone-homatropine 5 mg-1.5 5 ml PO Q6H PRN #60 mL 01/12/25 02/08/25 mg/5 mL (5 mL) oral syrup (Hycodan) Previous Rx's ?Medication ?Instructions ?Recorded albuterol sulfate 2.5 mg/3 mL 2.5 mg (3 mL) UPD Q4H PRN PRN #75 12/05/23 (0.083 %) solution for nebulization mL albuterol sulfate 90 mcg/actuation 2 puff inhalation Q12H PRN PRN 12/05/23 aerosol inhaler #6.7 grams nicotine (polacrilex) 4 mg gum 4 mg buccal Q1H #50 ea 12/22/23 tiotropium 2.5 mcg-olodaterol 2.5 2 puff inhalation DAILY #4 grams 12/22/23 mcg/actuation mist for inhalation (Stiolto Respimat) hydrocodone-homatropine 5 mg-1.5 5 ml PO Q6H PRN #60 mL 01/12/25 mg/5 mL (5 mL) oral syrup (Hycodan) Allergies Allergy/AdvReac Type Severity Reaction Status Date / Time No Known Allergies Allergy Verified 02/08/25 16:32 General Stated Complaint: Dizzy/Sync EMETERIO: 4 Exam Narrative Exam Narrative: General Appearance: Alert and oriented, not in acute distress. Vital signs: Within normal limits. HEENT: Horizontal nystagmus present. Pupils equal, round, reactive to light and accommodation. Respiratory: Within normal limits. Cardiovascular: No carotid bruit. Back, Musculoskeletal: Negative [id number], heel-carroll, and pronator drift. Extremities: Hands positive A L and R. Skin: Warm and dry, no rash. Neurological: Cranial nerves II-XII intact. Hints negative. Other observations: None. Course Vital Signs Vital signs: Vital Signs Temperature 36.2 C L 02/08/25 16:29 Pulse 93 H 02/08/25 16:29 Respiratory Rate 16 02/08/25 16:29 Blood Pressure 152/90 H 02/08/25 16:29 Pulse Oximetry 93 02/08/25 16:29 Temperature 36.2 C L 02/08/25 16:29 Temperature Source Oral 02/08/25 16:29 Pulse 94 H 02/08/25 20:28 Pulse 98 H 02/08/25 20:10 Respiratory Rate 24 02/08/25 20:28 Respiratory Effort Normal 02/08/25 19:00 Respiratory Depth Normal 02/08/25 19:00 Respiratory Pattern Normal 02/08/25 19:00 Blood Pressure 119/82 02/08/25 20:28 Blood Pressure Mean 87 02/08/25 19:55 Blood Pressure Position Sitting 02/08/25 16:29 Pulse Oximetry 93 02/08/25 20:28 Oxygen Delivery Method Room Air 02/08/25 16:29 Oxygen Flow Rate 0 02/08/25 16:29 Pain Level 0 02/08/25 16:29 Lab/Test Results Lab/Test Results: Laboratory Tests Range/Units 02/08/25 02/08/25 18:55 19:43 WBC (4.4-10.8) 10^3/uL 10.08 RBC (3.93-5.22) 10^6/uL 5.28 H Hgb (11.2-15.7) g/dL 14.4 Hct (36.0-46.0) % 45.5 MCV (80-95) fL 86 MCH (27.0-33.0) pg 27.3 MCHC (32.0-36.0) % 31.6 L RDW (11.7-14.6) % 15.6 H Plt Count (130-400) 10^3/uL 307 MPV (8.0-11.0) fL 8.7 Immature Gran % % 0.6 Neutrophils % % 68.8 Lymphocytes % % 14.8 Monocytes % % 9.3 Eosinophils % % 5.9 Basophils % % 0.6 Nucleated RBC % (0.0-0.3) % 0.0 Absolute Neutrophils (1.2-6.7) 10^3/uL 6.94 H Absolute Lymphocytes (1.2-3.4) 10^3/uL 1.49 Absolute Monocytes (0.1-0.8) 10^3/uL 0.94 H Absolute Eosinophils (0.0-0.7) 10^3/uL 0.59 Absolute Basophils (0.0-0.2) 10^3/uL 0.06 Sodium (136-145) mmol/L 141 Potassium (3.5-5.1) mmol/L 3.8 Chloride (98-107) mmol/L 104 Carbon Dioxide (21.0-32.0) mmol/L 28.9 Anion Gap (3-11) mmol/L 8.1 BUN (7-18) mg/dL 16 Creatinine (0.55-1.02) mg/dL 1.0 Est GFR (CKD-EPI 2020) (mL/min/1.73m2) 63.30 Glucose (74-106) mg/dL 122 H Calcium (8.5-10.1) mg/dL 9.5 Magnesium (1.8-2.4) mg/dL 1.9 Total Bilirubin (0.2-1.0) mg/dL 0.5 AST (15-37) U/L 15 ALT (14-59) U/L 42 Alkaline Phosphatase (46-116) U/L 107 Troponin I (<or=51) ng/L 5 Total Protein (6.4-8.2) g/dL 7.4 Albumin (3.4-5.0) g/dL 3.2 L TSH (0.36-3.74) uIU/mL 1.05 Urine Color (Yellow) Yellow Urine Clarity (Clear) Clear Urine pH (5-8) 5.5 Ur Specific [place] (1.005-1.025) 1.020 Urine Protein (Neg-Trace) mg/dL Negative Urine Ketones (Negative) mg/dL Negative Urine Blood (Negative) Negative Urine Nitrite (Negative) Negative Urine Bilirubin (Negative) Negative Urine Urobilinogen (Up to 0.2) mg/dL 0.2 Ur Leukocyte Esterase (Negative) Negative Urine Glucose (Negative) mg/dL 500 H Medical Decision Making Laboratory Studies CBC, chemistry, mag, glucose 122, and urinalysis show no acute pathology. Imaging Chest x-ray shows no acute abnormality. Testing EKG nonischemic. Initial Assessment: 64-year-old female with history of DVT, dyslipidemia, hypertension, GERD, diabetes, CHF, presents with dizziness worse with sudden movements, no chest pain, feels tired, no trauma or recent neck manipulations, no similar history. ED Course: - Blood work checked: CBC, chemistry, mag, glucose 122, urinalysis, all reassuring. - EKG nonischemic. - Chest x-ray reviewed by radiology and me, no acute abnormality. - Rocky maneuver performed four times for right-sided or left-sided vertigo, marked improvement in symptoms. - Patient ambulatory with steady gait, dizziness resolved, not orthostatic. - Discharged home in stable condition with stable vitals. Final Assessment: Patient presented with dizziness, underwent diagnostic tests and Rocky maneuver, resulting in symptom resolution. Discharged in stable condition. hINTS + Clinical Impression: - Vertigo Disposition: - Discharge MDM Components Evaluation: - Number of Differential Diagnoses or Management Options: Vertigo - Amount and Complexity of Data Reviewed: Blood work, EKG, chest x-ray - Risk of Complication and Morbidity or Mortality: Low risk given resolution of symptoms and stable condition upon discharge. Quality:SDOH Health Related Social Needs: Health related social needs feeling lonely/isolated (Z 60.8) PFSH All Active Problems (Updated 02/08/25 @ 20:03 by GIL Grace) Benign paroxysmal positional vertigo (Acute) COPD (chronic obstructive pulmonary disease) (Chronic) Influenza A (Acute) Pneumonia (Acute) Influenza A (Acute) COPD (chronic obstructive pulmonary disease) (Chronic) Nicotine dependence, cigarettes, uncomplicated (Acute) Pulmonary nodule (Acute) LISA (obstructive sleep apnea) (Chronic) Acute hypoxic respiratory failure (Acute) Continuous tobacco abuse (Acute) Medical History Dyslipidemia Hypertension History of DVT (deep vein thrombosis) Social History Smoking/Tobacco Use Status: Former Tobacco Use Quit Date: 01/04/25 Tobacco: How many years used: 55 Smoking risk assessment performed?: Yes Alcohol Intake: former Drug use: Rarely Substance use type: marijuana Housing: apartment Do you feel safe at home: Yes Do you feel safe in your relationship?: Yes
== END 2025-02-08 20:28 | disposition home or self-care (01) ==
PROVIDERS: Emergency Provider Physician Assistant; PCP Family Medicine
DX: H81.13 Benign paroxysmal vertigo, bilateral (principal); E78.5 Hyperlipidemia, unspecified; I10 Essential (primary) hypertension; J44.9 Chronic obstructive pulmonary disease, unspecified; E11.9 Type 2 diabetes mellitus without complications; Z86.73 Personal history of transient ischemic attack (TIA), and cerebral infarction without residual deficits; Z79.01 Long term (current) use of anticoagulants; Z87.891 Personal history of nicotine dependence
CPT/HCPCS: 80053; 93005; 99285; 71046; 81003; 83735; 84443; 84484; 85025; 93010; 99284

== ENCOUNTER 2025-02-10 15:35 | Outpatient (CLI) | payer MEDICAID, SELFPAY ==
--- NOTE | 2025-02-10 14:30 | DI.RAD_ITS ---
Exam(s) XR WRIST LT COMPLETE EXAM: XR WRIST LT COMPLETE CLINICAL HISTORY: wrist/thumb pain. TECHNIQUE: 2D digital imaging was performed. Three views. COMPARISON: CR XR WRIST RT COMPLETE from 02/10/2025 FINDINGS: BONES: No acute fracture is present. No bony destructive lesion is seen. JOINTS: The carpal bones are normally aligned. Mild narrowing of the 1st carpometacarpal joint and mild periarticular spurring. Mild spurring at the distal pole of the navicular. SOFT TISSUE: Normal. IMPRESSION: Unremarkable mild degenerative changes of 1st carpometacarpal joint. DATA REPOSITORY: RADIATION DOSE DELIVERED:
--- NOTE | 2025-02-10 14:30 | DI.RAD_ITS ---
Exam(s) XR WRIST RT COMPLETE EXAM: XR WRIST RT COMPLETE CLINICAL HISTORY: wrist/thumb pain. TECHNIQUE: 2D digital imaging was performed. Three views. COMPARISON: CR XR ARTHRITIS SERIES from 12/16/2024 FINDINGS: BONES: No acute fracture is present. No bony destructive lesion is seen. JOINTS: The carpal bones are normally aligned. Joint space narrowing at the 1st carpal metacarpal j oint with prominent periarticular spurring. Mild lateral subluxation. No significant degenerative c hanges elsewhere. SOFT TISSUE: Normal. IMPRESSION: Advanced degenerative changes at the 1st carpometacarpal joint. DATA REPOSITORY: RADIATION DOSE DELIVERED:
== END 2025-02-10 15:36 | disposition home or self-care (01) ==
LOC: DIORS 15:45
PROVIDERS: PCP Family Medicine; Visit Provider Physician Assistant
DX: M25.531 Pain in right wrist (principal); M25.532 Pain in left wrist
CPT/HCPCS: 73110

== ENCOUNTER 2025-03-24 17:57 | Outpatient (REF) | payer MEDICAID, SELFPAY ==
--- NOTE | 2025-03-24 14:50 | PAPFT_PTH ---
PATIENT: Sera Cadena LOC: [facility]#:[id number] AGE/SX: 64/F ROOM: RE03/24/[address]: Sherrell Weiss : 1960 BED: DIS: 03/24/2025 SPEC #: [id number] RECD: 03/25/25 12:25 STATUS: TJ MARSH #: [id number] JOHNY: 03/24/25 14:[address]: Sherrell Weiss DEPT: [facility] Cytology RECD BY: Karine Marcos Tissues: 1 - CX/ENDOCX FOR PAP SMEARS Procedures: PAP THIN PREP/UVM Screening HPV DNA PROBE Comments: [id number] (HPV 16 & 18/45)
== END 2025-03-24 17:58 | disposition home or self-care (01) ==
LOC: NCHCN 17:57
PROVIDERS: PCP Family Medicine; Visit Provider Family Medicine
DX: Z00.00 Encounter for general adult medical examination without abnormal findings (principal); Z12.4 Encounter for screening for malignant neoplasm of cervix; Z01.419 Encounter for gynecological examination (general) (routine) without abnormal findings
CPT/HCPCS: 88142; 87624

== ENCOUNTER 2025-03-28 00:44 | Outpatient (CLI) | payer MEDICAID, SELFPAY ==
--- NOTE | 2025-03-28 | DI.CT_ITS ---
Exam(s) CT CERVICAL SPINE WO EXAM: CT CERVICAL SPINE WO CLINICAL HISTORY: M54.2 Cervicalgia, chronic neck pain. TECHNIQUE: Imaging Protocol: Axial computed tomography images with coronal and sagittal reformatted images were created and reviewed CONTRAST MATERIAL: Noncontrast COMPARISON: CR Cervical Spine Complete; from 07/30/2012 FINDINGS: Bones: No fracture or subluxation is seen. There are severe degenerative changes at the skull base articulation with the with C1 and at the tristin culation of the anterior C1 ring with the dens. Degenerative cysts noted in C2. Discs: The C2-3 and C3-4 disc spaces are maintained. There are endplate osteophytes projecting anter iorly at C3-4. There are severe facet joint degenerative changes at these levels. There is severe b ilateral neural foraminal narrowing. There is mild narrowing of the AP dimension of the canal. Prior anterior fusion with hardware in place at C4-5. There is bony fusion across the disc space. T here is bony fusion across the facet joints. There is moderate to severe left neural foraminal narro wing. There is mild narrowing of the AP dimension of the central canal. There is moderate to severe loss of disc height at C5-6. There are endplate osteophytes and facet de generative changes combining to produce severe right neural foraminal narrowing. The C6-7 level shows moderate to severe loss of disc height. Circumferential disc osteophytes. Mild facet degenerative changes. [id number] bilateral neural foraminal narrowing, greater on the r ight. Severe loss of disc height and broad-based osteophytes at C7-T1. No significant neural foraminal ismael rowing. Soft Tissues: The soft tissues of the neck are unremarkable. No large disk herniations are identified . The visualized portions of the lung apices are clear. No pneumothorax is seen. IMPRESSION: Postsurgical and degenerative changes. There is mild narrowing of the AP dimension of the central ca nal from C3-4 through C5-6. Multilevel bilateral neural foraminal narrowing seen. No gross evidence of disc herniation. RADIATION DOSE DELIVERED: Total DLP DATA REPOSITORY: All CT scans at this facility are submitted to the National Radiology Data Registry (NRDR) Dose Index Registry (DIR) with the [employer] ([employer]). RADIATION OPTIMIZATION: All CT scans at this facility use at least one of these dose optimization te chniques: automated exposure control; mA and/or kV adjustment per patient size (includes targeted exa ms where dose is matched to clinical indication); or iterative reconstruction.
== END 2025-03-28 01:04 ==
PROVIDERS: PCP Family Medicine; Visit Provider Family Medicine
DX: M47.12 Other spondylosis with myelopathy, cervical region (principal)
CPT/HCPCS: 72125

== ENCOUNTER 2025-05-21 19:21 | Emergency (ER) | payer MEDICAID, SELFPAY ==
[2025-05-21 19:24] VITALS: BP 151/83; PULSE 96; RESP 20; TEMP 36.6; O2SAT 95
--- NOTE | 2025-05-21 19:56 | W.ED.GENAD ---
Discharge Plan Disposition Patient Disposition: Home Condition: Stable Discharge Details Clinical Impression: Sciatica Primary Care Provider: Sherrell Weiss ED Provider: Hellen Her Home Meds and New Rx's Prescriptions: New prednisone 20 mg tablet 40 mg PO DAILY Qty: 4 0RF gabapentin 400 mg capsule 400 mg PO TID 5 Days Qty: 15 0RF Continued bupropion HCl 100 mg tablet sustained-release 12 hr 100 mg PO DAILY diclofenac sodium [Arthritis Pain (diclofenac)] 1 % gel 2 g topical QID Rx Instructions: apply to single elbow, wrist or hand; for hand includes palm/fingers/back of hand methocarbamol 750 mg tablet 750 mg PO BID PRN metoprolol succinate 25 mg tablet extended release 24 hr 25 mg PO DAILY Ozempic 2 mg/dose (8 mg/3 mL) pen injector 2 mg subcut QWEEK albuterol sulfate [Ventolin HFA] 90 mcg/actuation HFA aerosol inhaler 2 puff inhalation BID PRN Stiolto Respimat 2.5-2.5 mcg/actuation mist 2 puff inhalation DAILY Qty: 4 12RF nicotine (polacrilex) 4 mg gum 4 mg buccal Q1H Qty: 50 5RF Jardiance 10 mg tablet 10 mg PO DAILY furosemide 20 mg tablet 20 mg PO DAILY Xarelto 20 mg tablet 20 mg PO DAILY Rx Instructions: must administer with evening meal amlodipine 5 mg tablet 5 mg PO DAILY sertraline 50 mg tablet 50 mg PO DAILY atorvastatin 40 mg tablet 40 mg PO DAILY omeprazole 40 mg capsule,delayed release(DR/EC) 40 mg PO DAILY ferrous sulfate [Feosol] 325 mg (65 mg iron) tablet 324 mg PO DAILY cholecalciferol (vitamin D3) [Vitamin D3] 125 mcg (5,000 unit) tablet 5,000 unit PO DAILY multivitamin [Daily Multi-Vitamin] Tablet 1 tab PO DAILY albuterol sulfate 2.5 mg /3 mL (0.083 %) Solution For Nebulization 2.5 mg UPD Q4H PRN PRNQty: 75 0RF albuterol sulfate 90 mcg/actuation HFA aerosol inhaler 2 puff inhalation Q12H PRN PRNQty: 6.7 0RF Rx Instructions: While outside of home setting Discontinued cyclobenzaprine 10 mg tablet 10 mg PO Q8H Patient Comments: TAKE ONE TABLET BY MOUTH THREE TIMES A DAY Discharge Instructions Instructions: Sciatica (DC), Sciatica Exercises Additional Instructions: Please call your primary care provider to schedule a follow up appointment later next week for reassessment. A referral to physical therapy may be helpful. Encourage you to continue using acetaminophen 1000 mg every 6 hours, as well as the methocarbamol 750 mg twice a day as needed. Use [id number] lidocaine patches, options with capsaicin such as Salonpas are helpful. Do not put any heat or ice over the lidocaine patch, as this can cause erratic absorption. Muscle rubs such as Aspercreme and Bengay may also be helpful. You are also being prescribed a limited course of prednisone to help with sciatica pain and gabapentin for use as needed Return to emergency care if you develop new fevers associated back pain, change in bowel or bladder function/numbness in your underwear area, weakness or numbness in your legs, inability/difficulty to walk, or if you are very worried and need to be rechecked again immediately Referrals: Sherrell Weiss [Primary Care Provider, Medicine] HPI General Date/Time Provider Initiated Documentation: 05/21/25 19:27. HPI Narrative: Sera is a 64-year-old female who presents to the emergency department today for evaluation of lower back pain for 3 days, attributed to increased physical activity. Pain onset upon waking 2 days ago, progressively worsening. Denies associated fever/chills, leg weakness/numbness, change in appetite, change in bowel or bladder function, abdominal pain, nausea/vomiting. Pain radiates down the right side from the right lower back, similar to previous sciatica episodes. No recent falls or injuries. Pain intensifies with movement, temporarily alleviated by certain positions. She does admit to occasional shooting pains in her bladder, no dysuria. Methocarbamol and Tylenol ineffective. Unable to take ibuprofen due to Xarelto. PMH significant for COPD, tobacco use, HTN, HLD, AAA (is awaiting surgical repair, not yet scheduled) Related Data Home Medications ?Medication ?Instructions ?Recorded ?Confirmed amlodipine 5 mg tablet 5 mg PO DAILY 12/03/23 05/21/25 atorvastatin 40 mg tablet 40 mg PO DAILY 12/03/23 05/21/25 cholecalciferol (vitamin D3) 125 5,000 unit PO DAILY 12/03/23 05/21/25 mcg (5,000 unit) tablet (Vitamin D3) ferrous sulfate 325 mg (65 mg 324 mg PO DAILY 12/03/23 05/21/25 iron) tablet (Feosol) multivitamin (Daily Multi-Vitamin 1 tab PO DAILY 12/03/23 05/21/25 tablet) omeprazole 40 mg capsule,delayed 40 mg PO DAILY 12/03/23 05/21/25 release rivaroxaban 20 mg tablet (Xarelto) 20 mg PO DAILY 12/03/23 05/21/25 sertraline 50 mg tablet 50 mg PO DAILY 12/03/23 05/21/25 albuterol sulfate 2.5 mg/3 mL 2.5 mg (3 mL) UPD Q4H PRN PRN #75 12/05/23 05/21/25 (0.083 %) solution for nebulization mL albuterol sulfate 90 mcg/actuation 2 puff inhalation Q12H PRN PRN 12/05/23 05/21/25 aerosol inhaler #6.7 grams nicotine (polacrilex) 4 mg gum 4 mg buccal Q1H #50 ea 12/22/23 05/21/25 tiotropium 2.5 mcg-olodaterol 2.5 2 puff inhalation DAILY #4 grams 12/22/23 05/21/25 mcg/actuation mist for inhalation (Stiolto Respimat) empagliflozin 10 mg tablet 10 mg PO DAILY 12/20/24 05/21/25 (Jardiance) furosemide 20 mg tablet 20 mg PO DAILY 12/20/24 05/21/25 albuterol sulfate 90 mcg/actuation 2 puff inhalation BID PRN 12/22/24 05/21/25 aerosol inhaler (Ventolin HFA) bupropion HCl 100 mg tablet,12 hr 100 mg PO DAILY 12/22/24 05/21/25 sustained-release diclofenac sodium 1 % topical gel 2 g topical QID 12/22/24 05/21/25 (Arthritis Pain (diclofenac)) methocarbamol 750 mg tablet 750 mg PO BID PRN 12/22/24 05/21/25 metoprolol succinate 25 mg 25 mg PO DAILY 12/22/24 05/21/25 tablet,extended release 24 hr semaglutide 2 mg/dose (8 mg/3 mL) 2 mg subcut QWEEK 12/22/24 05/21/25 subcutaneous pen injector (Ozempic) gabapentin 400 mg capsule 400 mg PO TID 5 days #15 caps 05/21/25 prednisone 20 mg tablet 40 mg (2 x 20 mg) PO DAILY #4 tabs 05/21/25 Previous Rx's ?Medication ?Instructions ?Recorded albuterol sulfate 2.5 mg/3 mL 2.5 mg (3 mL) UPD Q4H PRN PRN #75 12/05/23 (0.083 %) solution for nebulization mL albuterol sulfate 90 mcg/actuation 2 puff inhalation Q12H PRN PRN 12/05/23 aerosol inhaler #6.7 grams nicotine (polacrilex) 4 mg gum 4 mg buccal Q1H #50 ea 12/22/23 tiotropium 2.5 mcg-olodaterol 2.5 2 puff inhalation DAILY #4 grams 12/22/23 mcg/actuation mist for inhalation (Stiolto Respimat) gabapentin 400 mg capsule 400 mg PO TID 5 days #15 caps 05/21/25 prednisone 20 mg tablet 40 mg (2 x 20 mg) PO DAILY #4 tabs 05/21/25 Allergies Allergy/AdvReac Type Severity Reaction Status Date / Time No Known Allergies Allergy Verified 05/21/25 19:28 General Stated Complaint: Nk/Back Pain EMETERIO: 3 Exam Narrative Exam Narrative: General Appearance: Normal. Patient is alert and oriented, no acute distress. Vital signs: Within normal limits. Respiratory: Easy work of breathing, lungs clear to auscultation bilaterally. Gastrointestinal: Abdomen is soft, nondistended, nontender to palpation. Back, Musculoskeletal: Right sided lower back pain on palpation; right-sided sciatica with straight leg raise; reflexes, strength, and sensation intact bilaterally. No C-spine/T-spine/L-spine step-off/tenderness/deformity. Skin: Warm and dry, no rash. No color change to extremity. Neurological: No numbness or weakness in legs; Achilles reflexes 2+ bilaterally, 5/5 strength, and sensation intact bilaterally. Normal gait. Psychiatric: Normal. Course Vital Signs Vital signs: Vital Signs Temperature 36.6 C 05/21/25 19:24 Pulse 96 H 05/21/25 19:24 Respiratory Rate 20 05/21/25 19:24 Blood Pressure 151/83 H 05/21/25 19:24 Pulse Oximetry 95 05/21/25 19:24 Temperature 36.6 C 05/21/25 19:24 Temperature Source Oral 05/21/25 19:24 Pulse 96 H 05/21/25 19:24 Respiratory Rate 20 05/21/25 19:24 Blood Pressure 151/83 H 05/21/25 19:24 Blood Pressure Position Sitting 05/21/25 19:24 Pulse Oximetry 95 05/21/25 19:24 Oxygen Delivery Method Room Air 05/21/25 19:24 Oxygen Flow Rate 0 05/21/25 19:24 Pain Level 10 05/21/25 19:24 Medical Decision Making Initial Assessment: 64-year-old female with lower back pain, consistent with sciatica. No red flags concerning for trauma, spinal epidural abscess, spinal cord compression, or other serious etiologies of low back pain requiring diagnostic imaging or labs. Urine obtained to rule out UTI and presence of bladder discomfort I independently interpreted the following tests: UA reassuring, not consistent with UTI. ED Course: - Applied lidocaine patch. - Administered Valium for muscle relaxation after confirming that patient can get a ride home - Initiated short course of prednisone. -Gabapentin given for persistent sciatica pain -VPMS reviewed, no abnormalities noted. Final Assessment: Patient's lower back pain with sciatica was adequately managed with gabapentin, prednisone, lidocaine patch, and Valium with improvement of pain from /10 to 6/10. Clinical Impression: - Sciatica Disposition: - Discharge: Home with short course of prednisone and gabapentin. Reviewed discharge instructions with patient, including symptomatic management and red flags indicating need for return to emergency care. She voices agreement with plan of care - Follow-Up: With PCP for PT referral as needed MDM Components Evaluation: - Number of Differential Diagnoses or Management Options: Sciatica - Amount and Complexity of Data Reviewed: Physical examination, patient history. - Risk of Complication and Morbidity or Mortality: Moderate due to pain severity and limited treatment options. Patient consented to the use of [facility] Quality:SDOH Health Related Social Needs: Health related social needs lonely/isolated PFSH All Active Problems (Updated 05/21/25 @ 20:00 by Hellen Pelaez) Sciatica (Acute) Osteoarthritis of carpometacarpal (CMC) joint of both thumbs (Acute) Bilateral POCUS injections: 02/10/2025 Influenza A (Acute) COPD (chronic obstructive pulmonary disease) (Chronic) Nicotine dependence, cigarettes, uncomplicated (Acute) Pulmonary nodule (Acute) LISA (obstructive sleep apnea) (Chronic) Acute hypoxic respiratory failure (Acute) Continuous tobacco abuse (Acute) Medical History Dyslipidemia Hypertension History of DVT (deep vein thrombosis) Social History Smoking/Tobacco Use Status: Current every day Tobacco Type: cigarettes Tobacco: How many years used: 55 Smoking risk assessment performed?: Yes Alcohol Intake: current Alcohol Intake frequency: a few times a week Alcohol type: beer Drug use: Rarely Substance use type: marijuana Housing: apartment Do you feel safe at home: Yes Do you feel safe in your relationship?: Yes
[2025-05-21] MEDS: diazePAM 2 MG TAB PO (20:01)
[2025-05-21] MEDS: Acetaminophen 500 MG TAB 1000 MG PO (20:01)
[2025-05-21] MEDS: Lidocaine 5% Patch 1 PATCH TP (20:02)
[2025-05-21] MEDS: predniSONE 20 MG TAB 40 MG PO (20:02)
[2025-05-21 20:27] LABS: Bilirubin Negative (Negative); Blood Negative (Negative); Clarity Clear (Clear); Glucose >=1000 mg/dL (Negative); Ketones Negative (Negative); Leukocyte Esterase Negative (Negative); Nitrite Negative (Negative); Urobilinogen 0.2 mg/dL (Up to 0.2); pH 5.5 (5-8)
[2025-05-21 20:41] LABS: RBC 0-2 HPF (0-2)
[2025-05-21 20:42] LABS: Bacteria Moderate HPF (Negative); C & S Indicated? No/Sq. Contamination; Casts Negative LPF (Negative); Crystals Negative HPF (Negative); Epithelial Cells Many HPF (Negative); Mucus Negative (Negative)
[2025-05-21 21:03] VITALS: BP 135/85; PULSE 96; RESP 14; TEMP 37.9; O2SAT 99
[2025-05-21 21:27] VITALS: TEMP 36.8
[2025-05-21] MEDS: Gabapentin 400 MG CAP PO (21:52)
[2025-05-21 22:50] VITALS: PULSE 94; RESP 18; O2SAT 95
== END 2025-05-21 22:51 | disposition home or self-care (01) ==
PROVIDERS: Emergency Provider Nurse Practitioner Family; PCP Family Medicine
DX: M54.31 Sciatica, right side (principal)
CPT/HCPCS: 99283 ×2; 36415; 81003; 81015; J7512

== ENCOUNTER 2025-06-08 11:20 | Emergency (ER) | payer MEDICAID, SELFPAY ==
[2025-06-08 11:25] VITALS: BP 155/98; PULSE 97; RESP 18; TEMP 36.8; O2SAT 93
--- NOTE | 2025-06-08 12:15 | DI.RAD_ITS ---
Exam(s) XR LUMBAR SPINE COMPLETE EXAM: XR LUMBAR SPINE COMPLETE CLINICAL HISTORY: LBP, risk for osteoporosis. TECHNIQUE: 2D digital imaging was performed. COMPARISON: No exams were available for comparison FINDINGS: Five views No evidence of fracture, listhesis, nor pars interarticularis defects. There is advanced chronic disc space narrowing at L5-S1 level and moderate disc space narrowing at L4-5 and other levels. There is some facet arthropathy at the lower 3 levels, more prominent on the right side. The sacroiliac joints appear unremarkable. No osseous lesions. No scoliosis. Surgical clips in the right upper quadrant most probably related to prior cholecystectomy. IMPRESSION: Chronic degenerative disc disease. Some facet arthropathy. No fractures nor listhesis. DATA REPOSITORY: RADIATION DOSE DELIVERED:
--- NOTE | 2025-06-08 13:29 | W.ED.GENAD ---
Discharge Plan Disposition Patient Disposition: Home Discharge Details Clinical Impression: Sciatica Primary Care Provider: Sherrell Weiss ED Provider: Hellen Her Home Meds and New Rx's Prescriptions: New gabapentin 400 mg capsule 400 mg PO TID Qty: 20 0RF Rx Instructions: Take 2 caps by mouth in the morning, 1 cap midday by mouth, and 2 caps at bedside by mouth for pain Discontinued prednisone 20 mg tablet 40 mg PO DAILY Qty: 4 0RF No Action bupropion HCl 100 mg tablet sustained-release 12 hr 100 mg PO DAILY diclofenac sodium [Arthritis Pain (diclofenac)] 1 % gel 2 g topical QID Rx Instructions: apply to single elbow, wrist or hand; for hand includes palm/fingers/back of hand methocarbamol 750 mg tablet 750 mg PO BID PRN metoprolol succinate 25 mg tablet extended release 24 hr 25 mg PO DAILY Ozempic 2 mg/dose (8 mg/3 mL) pen injector 2 mg subcut QWEEK albuterol sulfate [Ventolin HFA] 90 mcg/actuation HFA aerosol inhaler 2 puff inhalation BID PRN Stiolto Respimat 2.5-2.5 mcg/actuation mist 2 puff inhalation DAILY Qty: 4 12RF nicotine (polacrilex) 4 mg gum 4 mg buccal Q1H Qty: 50 5RF Jardiance 10 mg tablet 10 mg PO DAILY furosemide 20 mg tablet 20 mg PO DAILY cyclobenzaprine 10 mg tablet Patient Comments: TAKE ONE TABLET BY MOUTH THREE TIMES A DAY celecoxib 100 mg capsule Patient Comments: TAKE ONE CAPSULE BY MOUTH TWICE A DAY Xarelto 20 mg tablet 20 mg PO DAILY Rx Instructions: must administer with evening meal amlodipine 5 mg tablet 5 mg PO DAILY sertraline 50 mg tablet 50 mg PO DAILY atorvastatin 40 mg tablet 40 mg PO DAILY omeprazole 40 mg capsule,delayed release(DR/EC) 40 mg PO DAILY ferrous sulfate [Feosol] 325 mg (65 mg iron) tablet 324 mg PO DAILY cholecalciferol (vitamin D3) [Vitamin D3] 125 mcg (5,000 unit) tablet 5,000 unit PO DAILY multivitamin [Daily Multi-Vitamin] Tablet 1 tab PO DAILY albuterol sulfate 2.5 mg /3 mL (0.083 %) Solution For Nebulization 2.5 mg UPD Q4H PRN PRNQty: 75 0RF albuterol sulfate 90 mcg/actuation HFA aerosol inhaler 2 puff inhalation Q12H PRN PRNQty: 6.7 0RF Rx Instructions: While outside of home setting Discharge Instructions Instructions: Sciatica Exercises Additional Instructions: A referral has been placed to physical therapy. I recommend that you call them first thing tomorrow morning to schedule an appointment for management of your sciatica. Please also call your primary care provider to schedule follow-up appointment to discuss pain management. Your workup today was very reassuring. There were no fractures or acute abnormalities noted on the x-ray. Continue taking your medications as prescribed. I recommend continued use of the capsaicin patches. You may also use heat and ice not on top of the patches. Muscle rubs such as IcyHot or Bengay may also be helpful. I am including some sciatica exercises that you may try to help with discomfort. You may return to emergency care at any time if you develop new persistent leg numbness, weakness in your legs, numbness in your underwear area, loss of bowel or bladder control, fevers associated with your back pain, or if you are very worried you need to be rechecked again in Referrals: [facility] [Provider Group, Physical Therapy] Sherrell Weiss [Primary Care Provider, Medicine] HPI General Date/Time Provider Initiated Documentation: 06/08/25 11:30. HPI Narrative: Sera is a 64-year-old female with persistent right-sided sciatica for the past month, described as a severe burning sensation disrupting sleep. She has been evaluated in the emergency department twice for this, and has followed up with her PCP. Denies associated recent falls or injuries. Pain is described as a burning sensation down her leg that is triggered with movement. Finds it difficult to get comfortable. Denies associated fevers, chills, saddle anesthesia, change in bowel or bladder function, leg weakness, persistent numbness to legs. He does have a history of similar sciatica symptoms, thinks it may be a bulging disc. She has been using lidocaine patches with minimal relief, however says the ones with capsaicin are more helpful. Finding gabapentin, Tylenol, and methocarbamol not effective. She was seen by PCPs office who increased dosages and provided PT referral. No back surgeries, osteoporosis, recent injuries. PMH notable for pulmonary hypertension, ASCVD, COPD, heart failure, osteoarthritis, HTN, HLD, GERD, T2DM. She does have a history of DVT and occlusive mesenteric ischemia, is currently on anticoagulation with Xarelto Related Data Home Medications ?Medication ?Instructions ?Recorded ?Confirmed amlodipine 5 mg tablet 5 mg PO DAILY 12/03/23 06/08/25 atorvastatin 40 mg tablet 40 mg PO DAILY 12/03/23 06/08/25 cholecalciferol (vitamin D3) 125 5,000 unit PO DAILY 12/03/23 06/08/25 mcg (5,000 unit) tablet (Vitamin D3) ferrous sulfate 325 mg (65 mg 324 mg PO DAILY 12/03/23 06/08/25 iron) tablet (Feosol) multivitamin (Daily Multi-Vitamin 1 tab PO DAILY 12/03/23 06/08/25 tablet) omeprazole 40 mg capsule,delayed 40 mg PO DAILY 12/03/23 06/08/25 release rivaroxaban 20 mg tablet (Xarelto) 20 mg PO DAILY 12/03/23 06/08/25 sertraline 50 mg tablet 50 mg PO DAILY 12/03/23 06/08/25 albuterol sulfate 2.5 mg/3 mL 2.5 mg (3 mL) UPD Q4H PRN PRN #75 12/05/23 06/08/25 (0.083 %) solution for nebulization mL albuterol sulfate 90 mcg/actuation 2 puff inhalation Q12H PRN PRN 12/05/23 06/08/25 aerosol inhaler #6.7 grams nicotine (polacrilex) 4 mg gum 4 mg buccal Q1H #50 ea 12/22/23 06/08/25 tiotropium 2.5 mcg-olodaterol 2.5 2 puff inhalation DAILY #4 grams 12/22/23 06/08/25 mcg/actuation mist for inhalation (Stiolto Respimat) empagliflozin 10 mg tablet 10 mg PO DAILY 12/20/24 06/08/25 (Jardiance) furosemide 20 mg tablet 20 mg PO DAILY 12/20/24 06/08/25 albuterol sulfate 90 mcg/actuation 2 puff inhalation BID PRN 12/22/24 06/08/25 aerosol inhaler (Ventolin HFA) bupropion HCl 100 mg tablet,12 hr 100 mg PO DAILY 12/22/24 06/08/25 sustained-release diclofenac sodium 1 % topical gel 2 g topical QID 12/22/24 06/08/25 (Arthritis Pain (diclofenac)) methocarbamol 750 mg tablet 750 mg PO BID PRN 12/22/24 06/08/25 metoprolol succinate 25 mg 25 mg PO DAILY 12/22/24 06/08/25 tablet,extended release 24 hr semaglutide 2 mg/dose (8 mg/3 mL) 2 mg subcut QWEEK 12/22/24 06/08/25 subcutaneous pen injector (Ozempic) celecoxib 100 mg capsule mg 06/08/25 cyclobenzaprine 10 mg tablet mg 06/08/25 gabapentin 400 mg capsule 400 mg PO TID #20 caps 06/08/25 Previous Rx's ?Medication ?Instructions ?Recorded albuterol sulfate 2.5 mg/3 mL 2.5 mg (3 mL) UPD Q4H PRN PRN #75 12/05/23 (0.083 %) solution for nebulization mL albuterol sulfate 90 mcg/actuation 2 puff inhalation Q12H PRN PRN 12/05/23 aerosol inhaler #6.7 grams nicotine (polacrilex) 4 mg gum 4 mg buccal Q1H #50 ea 12/22/23 tiotropium 2.5 mcg-olodaterol 2.5 2 puff inhalation DAILY #4 grams 12/22/23 mcg/actuation mist for inhalation (Stiolto Respimat) gabapentin 400 mg capsule 400 mg PO TID #20 caps 06/08/25 Allergies Allergy/AdvReac Type Severity Reaction Status Date / Time No Known Allergies Allergy Verified 06/08/25 11:29 General Stated Complaint: Nk/Back Pain EMETERIO: 3 Exam Narrative Exam Narrative: General Appearance: Normal. Patient is alert and oriented, in no acute distress Vital signs: Within normal limits. Back, Musculoskeletal: No T-spine/L-spine step-off/tenderness/deformity. No obvious paraspinal muscle spasms. Neurological: Positive straight leg raise test on right with zinging pain. Station grossly intact to lower extremities, brisk cap refill, + pedal pulses. 5/5 muscle strength to lower extremities. Normal Achilles reflexes. Normal gait. Skin: Warm and dry, no rash. Psychiatric: Normal. Course Vital Signs Vital signs: Vital Signs Temperature 36.8 C 06/08/25 11:25 Pulse 97 H 06/08/25 11:25 Respiratory Rate 18 06/08/25 11:25 Blood Pressure 155/98 H 06/08/25 11:25 Pulse Oximetry 93 06/08/25 11:25 Temperature 36.8 C 06/08/25 11:25 Temperature Source Oral 06/08/25 11:25 Pulse 97 H 06/08/25 11:25 Respiratory Rate 18 06/08/25 11:25 Blood Pressure 155/98 H 06/08/25 11:25 Blood Pressure Position Supine 06/08/25 11:25 Pulse Oximetry 93 06/08/25 11:25 Pain Level 10 06/08/25 12:05 Medical Decision Making Initial Assessment: 64-year-old female with right-sided sciatica for a month. Differential Diagnosis: - Sciatica: Referral to physical therapy. Lidocaine and capsaicin patches provide minimal relief. ED Course: - Physical exam: Reassuring neuro exam. No red flags in history or physical exam concerning for spinal cord compression, spinal epidural abscess, or other serious etiology of back pain. -X-ray performed to rule out associated compression fracture, as patient has a history of COPD and is a female, says she has not had DEXA scan performed previously, so may be at risk for osteoporosis. Lumbar xray performed; no acute abnormalities noted While in the emergency department Sera received Valium for muscle spasm. She did request pain medications, saying that she took her Tylenol and gabapentin this morning. I do not feel it would be appropriate to administer opioid pain medications, especially due to chronicity of pain and high risk/lack of efficacy of opioid pain medication in treatment of LBP Final Assessment: Lower back pain with right-sided sciatica. No red flags in history or physical exam, x-ray unremarkable I did review recent PCP visit, at that time Christine Horan NP had increased gabapentin and declined request for stronger/opiate pain medication. Clinical Impression: - Sciatica Disposition: - Follow-Up: Recommend close follow-up with PCP for pain management. A refill of gabapentin was provided, as she said that this prescription has ran out. I reviewed discharge instructions with patient, including symptomatic management and follow-up. Referral made to physical therapy. MDM Components Evaluation: - Number of Differential Diagnoses or Management Options: Sciatica - Amount and Complexity of Data Reviewed: Physical exam findings - Risk of Complication and Morbidity or Mortality: Low risk based on current symptoms and treatment plan. Patient consented to the use of [facility] Imaging Data Radiologic Study: Radiologist's impression: Exam(s) XR LUMBAR SPINE COMPLETE EXAM: XR LUMBAR SPINE COMPLETE CLINICAL HISTORY: LBP, risk for osteoporosis. TECHNIQUE: 2D digital imaging was performed. COMPARISON: No exams were available for comparison FINDINGS: Five views No evidence of fracture, listhesis, nor pars interarticularis defects. There is advanced chronic disc space narrowing at L5-S1 level and moderate disc space narrowing at L4-5 and other levels. There is some facet arthropathy at the lower 3 levels, more prominent on the right side. The sacroiliac joints appear unremarkable. No osseous lesions. No scoliosis. Surgical clips in the right upper quadrant most probably related to prior cholecystectomy. IMPRESSION: Chronic degenerative disc disease. Some facet arthropathy. No fractures nor listhesis. Quality:SDOH Health Related Social Needs: Health related social needs lonely/isolated PFSH All Active Problems (Updated 06/08/25 @ 14:22 by Hellen Pelaez) Sciatica (Acute) Osteoarthritis of carpometacarpal (CMC) joint of both thumbs (Acute) Bilateral POCUS injections: 02/10/2025 Influenza A (Acute) COPD (chronic obstructive pulmonary disease) (Chronic) Nicotine dependence, cigarettes, uncomplicated (Acute) Pulmonary nodule (Acute) LISA (obstructive sleep apnea) (Chronic) Acute hypoxic respiratory failure (Acute) Continuous tobacco abuse (Acute) Medical History Dyslipidemia Hypertension History of DVT (deep vein thrombosis) Social History Smoking/Tobacco Use Status: Current every day Tobacco Type: cigarettes Tobacco: How many years used: 55 Smoking risk assessment performed?: Yes Alcohol Intake: current Alcohol Intake frequency: a few times a week Alcohol type: beer Drug use: Rarely Substance use type: marijuana Housing: apartment Do you feel safe at home: Yes Do you feel safe in your relationship?: Yes
[2025-06-08] MEDS: diazePAM 5 MG TAB PO (14:13)
[2025-06-08 14:32] VITALS: BP 116/67; PULSE 87; RESP 18; TEMP 36.7; O2SAT 96
== END 2025-06-08 14:34 | disposition home or self-care (01) ==
PROVIDERS: Emergency Provider Nurse Practitioner Family; PCP Family Medicine
DX: M54.31 Sciatica, right side (principal); E78.5 Hyperlipidemia, unspecified; I10 Essential (primary) hypertension; J44.9 Chronic obstructive pulmonary disease, unspecified; F17.210 Nicotine dependence, cigarettes, uncomplicated; Z86.718 Personal history of other venous thrombosis and embolism; Z79.01 Long term (current) use of anticoagulants
CPT/HCPCS: 99283; 72110

== ENCOUNTER 2025-07-15 01:08 | Outpatient (CLI) | payer MEDICAID, SELFPAY ==
--- NOTE | 2025-07-15 06:30 | DI.CT_ITS ---
Exam(s) CT CHEST WO EXAM: CT CHEST WO CLINICAL HISTORY: follow up 4-5mm SOLITARY PULMONARY NODULE R91.1. TECHNIQUE: Imaging protocol: Axial computed tomography images were obtained and coronal and sagittal reformatted images were created and reviewed. Computer aided detection (CAD) was utilized. CONTRAST MATERIAL: Noncontrast COMPARISON: CT CT THORAX ABD/PEL CTA from 10/11/2024 FINDINGS: Pulmonary parenchyma: No consolidation. Smoothly marginated nodule again noted in the right middle lobe. Stable tiny nodule inferolateral right middle lobe. Interstitial changes: None. Emphysema: None. Tracheobronchial tree: No mucous plugging. No bronchiectasis . Pleura: No effusion or pneumothorax. Heart: The heart is not dilated. The coronary arteries show mild to moderate calcifications. Aorta: Ascending aorta measures 4 cm, unchanged from prior.. Mild atherosclerotic changes. Lymph nodes: No enlarged lymph nodes. Bones: Degenerative changes are seen. No evidence of compression fracture. Upper abdomen: Liver appears enlarged. Hepatic steatosis. Cholecystectomy. Soft tissues: Unremarkable. IMPRESSION: No acute abnormality. Stable pulmonary nodules. If the patient is at high risk for lung cancer, a low-dose screening chest CT could be performed in 1 year. Otherwise no follow- up recommended. RADIATION DOSE DELIVERED: Total DLP Total DLP DATA REPOSITORY: All CT scans at this facility are submitted to the National Radiology Data Registry (NRDR) Dose Index Registry (DIR) with the [employer] ([employer]). RADIATION OPTIMIZATION: All CT scans at this facility use at least one of these dose optimization techniques: automated exposure control; mA and/or kV adjustment per patient size (includes targeted exams where dose is matched to clinical indication); or iterative reconstruction.
== END 2025-07-15 01:28 ==
LOC: DI 01:09
PROVIDERS: PCP Family Medicine; Visit Provider Physician Assistant Surgical
DX: R91.1 Solitary pulmonary nodule (principal)
CPT/HCPCS: 71250

== ENCOUNTER 2025-09-26 12:38 | Outpatient (CLI) | payer MEDICAID, SELFPAY ==
[2025-09-26 12:51] VITALS: BP 121/78; PULSE 89; RESP 20; TEMP 37; O2SAT 95
--- NOTE | 2025-09-26 13:05 | PDOC.PAIN_ITS ---
Date of service: 09/26/25 Time of Service: 13:48 Pain Managment Procedure Note Procedure Note Procedure Note: Cervical Facet Joint Injection of Steroid Location: Right Facet Joints Levels: C3-4, C5-6 Pre-procedure Diagnosis: M47.812 Spondylosis without myelopathy or radiculopathy, cervical region Post-procedure Diagnosis: The same as above Sedation: None Estimated blood loss: less than 2 ml Surgeon: Rajat Turner MD COMMENT: PRE PROCEDURE PAIN SCORE: 6/10. Decision was made to proceed with intra-articular facet injections for the possibility of not having to do medial branch blocks and radiofrequency ablation if patient get long lasting relief (> 3 months). Patient with fusion at C4–5 plan is to go above and below her fusion Procedure Detail: The procedure and potential risks were explained to the patient and informed written consent was obtained. The patient was escorted to the procedure room and placed in the left lateral decubitus position. Pillows were utilized for proper positioning and comfort. Time out was performed in the procedure room with nursing staff confirming the patient's identity, procedure to be performed, allergies, and any blood thinning or anti- platelet medications. Sterile technique was maintained throughout the procedure. The patient's cervical area was prepped with chlorhexidine and draped in a sterile fashion. A lateral fluoroscopic view was obtained, with visualization of the facet joint. A 25gauge, Quincke needle was gently advanced through the facet capsule. Needle placement was confirmed with fluoroscopy in AP, and lateral views by injecting 0.25 ml of contrast. 10 mg of depomedrol and 0.25ml of 0.5% bupivacaine was injected into the capsule at C3-4,C5-6, right. The patient tolerated the procedure well and was discharged with instructions. Permanent images saved and recorded. PAIN: PRE-PROCEDURE 6/10 POST-PROCEDURE 01/31 Plan: Follow up prn COMMENT: Before the patient left patient had greater than 50% pain relief. Will use this as both diagnostic and potentially therapeutic. With short-term relief from the level that it was not long-lasting then we will proceed with radiofrequency ablation Coding Conscious Sedation used for procedure: No CPT Codes: CMBB (includes Fluoro) Cervical/Thoracic, 2nd lvl - 98991 ([id number] ~G) CMBB (includes Fluoro) Cervical/Thoracic, single lvl - 49140 ([id number] ~G) Additional Codes: Date of Service () Diagnoses: M47.812 Spondylosis without myelopathy or radiculopathy, cervical region
--- NOTE | 2025-09-26 13:39 | DI.RAD_ITS ---
Exam(s) XR PAIN CLINIC CERVICAL SP 2V EXAM: XR PAIN CLINIC CERVICAL SP 2V CLINICAL HISTORY: DX: Cervical Spondylosis TECHNIQUE: 2D and realtime digital imaging was performed. CONTRAST MATERIAL: Refer to procedure report. COMPARISON: No exams were available for comparison FINDINGS: Fluoroscopy was provided for Dr. Turner during the performance of a cervical facet injection. Please refer to the procedure report for complete details. Ka,r=15.9 mGy IMPRESSION: RADIATION DOSE DELIVERED: 0.0 0.0 0
[2025-09-26 13:44] VITALS: PULSE 87; O2SAT 95
[2025-09-26] MEDS: Nerve Block Tray 1 EACH MC (13:46)
[2025-09-26] MEDS: Bupivacaine 0.5% Pres-Free 10 ML VIAL IJ (13:47)
[2025-09-26] MEDS: Omnipaque 240 MG/ML 50 ML BTL IJ (13:47)
[2025-09-26] MEDS: methylPREDNISolone ACETATE 80 MG/ML VIAL IJ (13:48)
== END 2025-09-26 12:39 | disposition home or self-care (01) ==
LOC: PC 12:39
PROVIDERS: PCP Family Medicine; Visit Provider Anesthesiology Pain Medicine
DX: M47.812 Spondylosis without myelopathy or radiculopathy, cervical region (principal)
CPT/HCPCS: 64490; 64491; 72040; J0665; J1010; Q9967

== ENCOUNTER → 2025-09-27 00:46 | Outpatient (CLI) | payer MEDICAID, SELFPAY ==
--- NOTE | 2025-09-27 07:15 | DI.MRI_ITS ---
Exam(s) MR LUMBAR SPINE WO EXAM: MR LUMBAR SPINE WO CLINICAL HISTORY: LOW BACK PAIN, LUMBAR SPONDYLOSIS,LUMBAR RADICULITIS. TECHNIQUE: Multiplanar multisequence MRI of the Lumbar spine was performed. CT CT THORAX ABD/PEL CTA from 10/11/2024 FINDINGS: Bones: The last intervertebral disc space is designated the L5/S1 level for the numbering purpose of this examination. The vertebral body heights are well maintained. Alignment is satisfactory. There are hemangioma seen in the L1 and L3 vertebral bodies. Mild degenerative endplate signal changes are seen in the lumbar spine particularly at L4-L5. Note is made of perineural root sleeve cysts at the S2 level. Cord: It is of normal size and signal intensity. T12-L1: No disc herniations or bulges are present. No central spinal canal or neural foraminal stenosis. L1-2: No disc herniations or bulges are present. No central spinal canal or neural foraminal stenosis. L2-3: There is a mild diffuse disc bulge. There is extension into the left neural foramen causing moderate left neural foraminal stenosis. There is no significant central spinal canal or right neural foraminal stenosis. L3-4: No disc herniations or bulges are present. No central spinal canal or neural foraminal stenosis. L4-5: There is a diffuse disc bulge. There are degenerative changes of the facets. There is old is mild narrowing of the central spinal canal. There is moderate right and mild left neural foraminal stenosis. L5-S1: There is a mild diffuse disc bulge which extends into the neural foramen bilaterally. There is no significant central spinal canal stenosis. There is marked right neural foraminal stenosis and moderate left neural foraminal stenosis. Soft tissues: The visualized SI joints and sacrum are well maintained. The paraspinal soft tissues are unremarkable. Visualized abdominal organs: There is again seen a simple left renal cyst. No follow-up is recommended. IMPRESSION: Degenerative changes seen in the lumbar spine particularly at L2-3, L4-5 and L5- S1. DATA REPOSITORY:
== END ==
LOC: DI 00:46
PROVIDERS: PCP Family Medicine; Visit Provider Anesthesiology Pain Medicine
DX: M47.816 Spondylosis without myelopathy or radiculopathy, lumbar region (principal)
CPT/HCPCS: 72148